=== PATIENT | female | born 1945 | race Caucasian/White ===

== ENCOUNTER 2024-08-06 20:35 | Inpatient (IN) ==
[2024-08-06 21:20] LABS: Basophils # (auto) 0.06 K/uL (0.00-0.20); Basophils % (auto) 0.5 %; Eosinophils # (auto) 0.06 K/uL (0.00-0.50); Eosinophils % (auto) 0.5 %; Hematocrit (blood only) 33.5 % (37.0-47.0); Hemoglobin 10.1 g/dl (12.0-16.0); Immature Granulocytes % (auto) 0.8 %; Lymphocytes # (auto) 0.84 K/uL (1.20-3.40); Lymphocytes % (auto) 6.4 %; Mean Corpuscular Hemoglobin 26.3 pg (25.0-34.0); Mean Corpuscular Hgb Conc 30.1 g/dL (32.0-36.0); Mean Corpuscular Volume 87.2 fL (80.0-100.0); Mean Platelet Volume 10.6 fL (9.4-12.4); Monocytes % (auto) 9.8 %; Neutrophils # (auto) 10.86 K/uL (1.40-6.50); Platelet Count 226 K/uL (130-400); RDW Coefficient of Variation 15.2 % (11.5-14.5); RDW Standard Deviation 48.1 fL (36.4-46.3); Red Blood Count 3.84 M/uL (4.20-5.40); White Blood Count 13.22 K/ul (4.8-10.8)
[2024-08-06 21:33] LABS: Albumin Globulin Ratio 1.3 (0.9-2); Albumin Level 3.5 gm/dl (3.4-5.0); BUN Creatinine Ratio 47.5 (10-20); Bilirubin,Total 0.5 mg/dl (0.2-1.0); Calcium 8.7 mg/dl (8.6-10.3); Creatinine Clr Calc Pharmacy 52.7 ml/min; Globulin 2.8 gm/dl (2.5-4.0); Potassium 4.2 mmol/L (3.5-5.1); Total Protein 6.3 gm/dl (6.0-8.3)
[2024-08-06 21:39] LABS: Troponin I High Sensitivity 12.8 pg/ml (0-14)
--- NOTE | 2024-08-06 22:06 | Emergency Department Note ---
Impression & Plan Syncope, Pleural effusion, Atrial fibrillation, On apixaban therapy, Elevated CPK ED Provider Note NAME: KHANH KIRAN AGE: 79 SEX: F : 1945 ARRIVES VIA: Ambulance INFORMANT: Patient ED PROVIDER(S): Dayday Oneill MD CHIEF COMPLAINT: Syncope, unwitnessed fall PLAN: Disposition: Admit MEDICAL DECISION MAKING: The patient is a pleasant 79-year-old woman with a past medical history of diabetes on insulin, GERD atrial fibrillation on Eliquis, hypertension, hyperlipidemia who presents to the emergency department via EMS for evaluation of unwitnessed fall in the setting of episode of syncope which occurred prior to arrival where the patient last recalls preparing her dinner for the night and then was awakened on the ground where she was sitting leaned against the wall by her friend/neighbor who helps her administer her insulin. She denies any headache or neck/back pain. She reports left hip pain which is not unusual for her related to her arthritis. The patient has had fluctuating/labile blood sugars often becoming hypoglycemic but the patient is unsure as to why as she feels she has been eating and taking her insulin as prescribed. Additionally, family report that the patient has become increasingly edematous in her legs and has had worsening weakness and imbalance at home. Trauma alert was activated due to suspected fall on Eliquis. On my evaluation the patient is no distress, afebrile stable vital signs. Head is atraumatic. There is no midline C-spine tenderness palpation or step-offs. Hips are with full range of motion bilaterally though with discomfort of the left hip with range of motion. Pelvis is stable. She has 2+ bilateral lower extremity pitting edema. There is no significant erythema warmth or tenderness. She has no focal neurologic deficits. EKG demonstrates atrial fibrillation without overt acute ischemia. Chest x-ray demonstrates increased opacification of the right lung berrios which correlates to patient's pleural effusion that was seen on CT imaging. Patient's known old right proximal humerus fracture is seen. WBC 13.2 K with neutrophilia but no left shift, nonspecific. H/H 10.1/50.5 without prior for comparison. Platelets within normal limits. Chemistry without metabolic acidosis. AST is 45, nonspecific with normal ALT and total bilirubin. CPK is 575 in the setting of the patient's unwitnessed fall. High- sensitivity troponin 12.8, within normal limits. BNP is elevated at 251 without prior for comparison. Procalcitonin is not elevated. TSH is 4.6 with free T4 within normal limits. Urinalysis ordered and urine collection pending. CT of the head and C-spine were negative for acute findings. CT of the chest further characterizes bilateral pleural effusions with moderate right-sided and mild left-sided effusions. Additionally, 1.6 x 1.2 cm noncalcified suspected mass in the right lower lobe. Nonspecific mediastinal lymphadenopathy is also present. No acute intra-abdominal findings. Given the patient's syncope due to unclear etiology in the setting of her labile blood sugars at home and her hypervolemia with moderate-sized right-sided pleural effusion patient referred to hospital service for admission and further management. Patient treated with IV APAP and diuresis initiated with IV Lasix. [facility] the patient for [facility]. Further management per admitting team. Triage Nursing notes reviewed and agree them. Prior/external medical records reviewed Vital Signs: reviewed Differential diagnosis: Fracture, dislocation, contusion, intra-abd chest x-ray ominal, pneumothorax, intrathoracic, intracranial, neurologic, compartment syndrome, rhabdomyolysis, as well as other pathologies. ER treatment provided: See below. Diagnostics interpreted by me: ECG: Atrial fibrillation, 84 bpm, no ectopy, no overt ST elevation or depression, QTc 439, QRS 66. Cardiac Monitoring: An order for continuous cardiac monitoring was placed and demonstrated Atrial fibrillation, 84 bpm, no ectopy. Laboratory studies: See below Imaging studies: See below Consultation(s): [facility] will evaluate the patient for admission. HPI: The patient is a pleasant 79-year-old woman with a past medical history of diabetes on insulin, GERD atrial fibrillation on Eliquis, hypertension, hyperlipidemia who presents to the emergency department via EMS for evaluation of unwitnessed fall in the setting of episode of syncope which occurred prior to arrival where the patient last recalls preparing her dinner for the night and then was awakened on the ground where she was sitting leaned against the wall by her friend/neighbor who helps her administer her insulin. She denies any headache or neck/back pain. She reports left hip pain which is not unusual for her related to her arthritis. The patient has had fluctuating/labile blood sugars often becoming hypoglycemic but the patient is unsure as to why as she feels she has been eating and taking her insulin as prescribed. Additionally, family report that the patient has become increasingly edematous in her legs and has had worsening weakness and imbalance at home. ROS: See above HPI for pertinent positives & negatives. A total of 10 systems reviewed and were otherwise negative. VITALS:See Below PHYSICAL EXAMINATION: GENERAL: Awake, alert, uncomfortable-appearing, in no distress, BMI 44.3. HENT: Normocephalic, atraumatic. Oropharynx unremarkable. EYES: Normal conjunctiva. Sclera non-icteric. NECK: Supple. No nuchal rigidity. FROM. No JVD. No midline C-spine tenderness palpation or step-offs. RESPIRATORY: Diminished at bilateral mid to lower lung berrios, right greater than left and otherwise clear to auscultation. CARDIAC: Regular rate, irregular rhythm. Extremities warm and well perfused. Pulses equal. ABDOMEN: Soft, non-distended. No tenderness to palpation. No rebound or guarding. No masses. MUSCULOSKELETAL: Chest examination reveals no tenderness. The back is symmetrical on inspection without obvious abnormality. Hips are with full range of motion bilaterally though with discomfort of the left hip with range of motion. Pelvis is stable. LOWER EXTREMITIES: Calves are equal size bilaterally and non-tender. 2+ bilateral lower extremity pitting edema. There is no significant erythema warmth or tenderness. NEURO: Normal sensorium. No sensory or motor deficits noted. SKIN: No rash or jaundice noted. Dayday Oneill MD Past Med/Surg History Problem List (Updated 08/07/24 @ 04:27 by Dayday Oneill MD) Elevated CPK (Acute) On apixaban therapy (Acute) Atrial fibrillation (Acute) Pleural effusion (Acute) Syncope (Acute) Medical History Hyperlipidemia Hypertension Type 2 diabetes mellitus Social History Smoking Status: Former smoker Tobacco Type: Cigarettes Smoking End Date: 1998; Second Hand Exposure: No; Do You Dip or Chew Tobacco: No; Tobacco Cessation Education Requested by Patient: No Hx Alcohol Use: No Hx Substance Use: No Preferred Language: Comoran Communication Ability: Effective Brick Baker Required: No Beliefs That Will Affect Care: None Current Living Situation: Family Current Living Situation Comment: lives with son Other Information That Helps Us Care for You: No Feels Safe at Home: Yes Safety Concerns: Feels Safe At This Time Assistive Devices: Cane, Glasses and Walker Allergies Allergies Allergy/AdvReac Type Severity Reaction Status Date / Time amoxicillin Allergy Mild RASH,ITCHIN Verified 08/07/24 01:22 G adhesive tape Allergy Unknown rash with Verified 08/07/24 01:35 bandaids & all tape except Paper Home Meds Home Medications Medication Instructions Recorded Confirmed acetaminophen 500 mg capsule 1,000 mg PO DAILY PRN Pain 08/07/24 08/07/24 albuterol sulfate 90 mcg/actuation 2 puff inhalation Q4H PRN SOB 08/07/24 08/07/24 aerosol inhaler apixaban 5 mg tablet (Eliquis) 5 mg PO BID 08/07/24 08/07/24 ascorbic acid (vitamin C) 500 mg 500 mg PO DAILY 08/07/24 08/07/24 tablet (Vitamin C) aspirin 81 mg capsule 81 mg PO DAILY 08/07/24 08/07/24 blood-glucose meter (OneTouch 08/07/24 08/07/24 Ultra2 Meter) cholecalciferol (vitamin D3) 25 25 mcg PO DAILY 08/07/24 08/07/24 mcg (1,000 unit) capsule (Vitamin D3) cyanocobalamin (vitamin B-12) 1,000 mcg PO QAM 08/07/24 08/07/24 1,000 mcg tablet insulin aspar prot-insulin aspart See Rx Instructions .Route .COMPLEX 08/07/24 08/07/24 100 unit/mL (70-30) subcutaneous pen (Novolog Mix 70-30FlexPen U-100) latanoprost 0.005 % eye drops 1 drp ophthalmic (eye) HS 08/07/24 08/07/24 lisinopril 0 mg PO DAILY 08/07/24 08/07/24 lovastatin 10 mg tablet 10 mg PO PM 08/07/24 08/07/24 mecobalamin (vitamin B12) 1,000 1,000 mcg PO DAILY 08/07/24 08/07/24 mcg chewable tablet (B12 Active) metoprolol succinate 100 mg 100 mg PO QAM 08/07/24 08/07/24 tablet,extended release 24 hr omeprazole 20 mg capsule,delayed 20 mg PO QAM 08/07/24 08/07/24 release Results & Data (ED) Vital Signs Vital Signs - 24 hr 08/06/24 20:41 08/06/24 21:10 08/06/24 21:10 Temperature Pulse Rate 81 74 Pulse Rate [Left Brachial] 74 Pulse Rhythm Regular Pulse Rhythm [Left Brachial] Regular Pulse Strength Normal Pulse Strength [Left Brachial] Normal Respiratory Rate 18 18 Respiratory Effort / Characteristics Non-Labored Non-Labored Respiratory Depth Normal Normal Respiratory Pattern Regular Blood Pressure 139/80 Blood Pressure [Left Arm] 139/80 Blood Pressure Mean 99 Blood Pressure Mean [Left Arm] 99 Blood Pressure Position Lying Blood Pressure Position [Left Arm] Lying Pulse Oximetry 96 96 Oxygen Delivery Method Room Air Room Air Sepsis Recent Fever Within 48 Hours No Sepsis New/Unexplained Change in Mental Status No Sepsis Action Taken by Nursing No Action Required 08/06/24 21:10 08/06/24 21:21 08/06/24 21:22 Temperature 36.6 C Pulse Rate 74 Pulse Rate [Left Brachial] Pulse Rhythm Pulse Rhythm [Left Brachial] Pulse Strength Pulse Strength [Left Brachial] Respiratory Rate 18 Respiratory Effort / Characteristics Respiratory Depth Respiratory Pattern Blood Pressure 139/80 Blood Pressure [Left Arm] Blood Pressure Mean Blood Pressure Mean [Left Arm] Blood Pressure Position Blood Pressure Position [Left Arm] Pulse Oximetry 96 96 Oxygen Delivery Method Room Air Room Air Sepsis Recent Fever Within 48 Hours Sepsis New/Unexplained Change in Mental Status Sepsis Action Taken by Nursing 08/06/24 22:00 08/07/24 00:06 08/07/24 00:52 Temperature Pulse Rate 94 H Pulse Rate [Left Brachial] 84 89 Pulse Rhythm Pulse Rhythm [Left Brachial] Regular Pulse Strength Pulse Strength [Left Brachial] Normal Normal Respiratory Rate 18 18 Respiratory Effort / Characteristics Non-Labored Non-Labored Spontaneous Respiratory Depth Normal Normal Respiratory Pattern Regular Regular Blood Pressure Blood Pressure [Left Arm] 113/73 117/51 L Blood Pressure Mean Blood Pressure Mean [Left Arm] 86 73 Blood Pressure Position Blood Pressure Position [Left Arm] Lying Pulse Oximetry 93 98 Oxygen Delivery Method Room Air Room Air Sepsis Recent Fever Within 48 Hours Sepsis New/Unexplained Change in Mental Status Sepsis Action Taken by Nursing Laboratory Data Attestation: I reviewed the patient's lab results. 08/07/24 02:31 08/07/24 02:31 Lab Results 08/06/24 08/06/24 08/06/24 Range/Units 20:43 20:46 23:03 WBC 13.22 H (4.8-10.8) K/ul RBC 3.84 L (4.20-5.40) M/uL Hgb 10.1 L (12.0-16.0) g/dl Hct 33.5 L (37.0-47.0) % MCV 87.2 (80.0-100.0) fL MCH 26.3 (25.0-34.0) pg MCHC 30.1 L (32.0-36.0) g/dL RDW Std Deviation 48.1 H (36.4-46.3) fL RDW Coeff of Alvaro 15.2 H (11.5-14.5) % Plt Count 226 (130-400) K/uL MPV 10.6 (9.4-12.4) fL Immature Gran % (Auto) 0.8 % Neut % (Auto) 82.0 % Lymph % (Auto) 6.4 % [place] % (Auto) 9.8 % Eos % (Auto) 0.5 % Baso % (Auto) 0.5 % Neut # (Auto) 10.86 H (1.40-6.50) K/uL Lymph # (Auto) 0.84 L (1.20-3.40) K/uL [place] # (Auto) 1.30 H (0.11-0.59) K/uL Eos # (Auto) 0.06 (0.00-0.50) K/uL Baso # (Auto) 0.06 (0.00-0.20) K/uL Immature Gran # (Auto) 0.10 (0.01-0.20) K/uL PT 16.9 H (9.0-12.0) Seconds INR 1.6 H (0.9-1.1) Sodium 136 (136-145) mmol/L Potassium 4.2 (3.5-5.1) mmol/L Chloride 105 (98-107) mmol/L Carbon Dioxide 25 (21-32) mmol/L Anion Gap 6 (3-11) BUN 48 H (6-23) mg/dl Creatinine 1.01 (0.6-1.2) mg/dl Est Cr Clr Drug Dosing 52.7 ml/min eGFR 56.63 BUN/Creatinine Ratio 47.5 H (10-20) Glucose 132 H (70-99(Fasting)) mg/dl POC Glucose 141 H (70-99) mg/dl Calcium 8.7 (8.6-10.3) mg/dl Phosphorus 4.5 (2.5-4.9) mg/dl Magnesium 2.2 (1.7-2.4) mg/dl Total Bilirubin 0.5 (0.2-1.0) mg/dl AST 45 H (13-39) U/L ALT 24 (7-52) U/L Alkaline Phosphatase 151 H (34-104) U/L Total Creatine Kinase 575 H (26-192) U/L Troponin I High Sens 12.8 (0-14) pg/ml B-Natriuretic Peptide 251 H (0-100) pg/ml Total Protein 6.3 (6.0-8.3) gm/dl Albumin 3.5 (3.4-5.0) gm/dl Globulin 2.8 (2.5-4.0) gm/dl Albumin/Globulin Ratio 1.3 (0.9-2) Procalcitonin 0.06 (0-0.5) ng/ml TSH 4.617 H (0.300-4.500) uIu/ml Free T4 1.21 (0.61-1.60) ng/dl Urine Color Urine Appearance (Clear) Urine pH (4.5-7.5) Ur Specific [place] (1.000-1.030) Urine Protein (Negative) Urine Glucose (UA) (Negative) Urine Ketones (Negative) Urine Blood (Negative) Urine Nitrite (Negative) Urine Bilirubin (Negative) Urine Urobilinogen (Negative) Ur Leukocyte Esterase (Negative) Urine WBC (Auto) (0-5) /hpf Urine RBC (Auto) (0-2) /hpf U Hyaline Cast (Auto) (0-2) /lpf U Epithel Cells (Auto) (0-2) /hpf Urine Bacteria (Auto) (None Seen) 08/07/24 Range/Units 00:05 WBC (4.8-10.8) K/ul RBC (4.20-5.40) M/uL Hgb (12.0-16.0) g/dl Hct (37.0-47.0) % MCV (80.0-100.0) fL MCH (25.0-34.0) pg MCHC (32.0-36.0) g/dL RDW Std Deviation (36.4-46.3) fL RDW Coeff of Alvaro (11.5-14.5) % Plt Count (130-400) K/uL MPV (9.4-12.4) fL Immature Gran % (Auto) % Neut % (Auto) % Lymph % (Auto) % [place] % (Auto) % Eos % (Auto) % Baso % (Auto) % Neut # (Auto) (1.40-6.50) K/uL Lymph # (Auto) (1.20-3.40) K/uL [place] # (Auto) (0.11-0.59) K/uL Eos # (Auto) (0.00-0.50) K/uL Baso # (Auto) (0.00-0.20) K/uL Immature Gran # (Auto) (0.01-0.20) K/uL PT (9.0-12.0) Seconds INR (0.9-1.1) Sodium (136-145) mmol/L Potassium (3.5-5.1) mmol/L Chloride (98-107) mmol/L Carbon Dioxide (21-32) mmol/L Anion Gap (3-11) BUN (6-23) mg/dl Creatinine (0.6-1.2) mg/dl Est Cr Clr Drug Dosing ml/min eGFR BUN/Creatinine Ratio (10-20) Glucose (70-99(Fasting)) mg/dl POC Glucose (70-99) mg/dl Calcium (8.6-10.3) mg/dl Phosphorus (2.5-4.9) mg/dl Magnesium (1.7-2.4) mg/dl Total Bilirubin (0.2-1.0) mg/dl AST (13-39) U/L ALT (7-52) U/L Alkaline Phosphatase (34-104) U/L Total Creatine Kinase (26-192) U/L Troponin I High Sens (0-14) pg/ml B-Natriuretic Peptide (0-100) pg/ml Total Protein (6.0-8.3) gm/dl Albumin (3.4-5.0) gm/dl Globulin (2.5-4.0) gm/dl Albumin/Globulin Ratio (0.9-2) Procalcitonin (0-0.5) ng/ml TSH (0.300-4.500) uIu/ml Free T4 (0.61-1.60) ng/dl Urine Color Yellow Urine Appearance Clear (Clear) Urine pH 5.0 (4.5-7.5) Ur Specific [place] 1.038 H (1.000-1.030) Urine Protein Trace H (Negative) Urine Glucose (UA) Negative (Negative) Urine Ketones Trace H (Negative) Urine Blood Negative (Negative) Urine Nitrite Positive A (Negative) Urine Bilirubin Negative (Negative) Urine Urobilinogen Negative (Negative) Ur Leukocyte Esterase Trace H (Negative) Urine WBC (Auto) 0-5 (0-5) /hpf Urine RBC (Auto) 0-2 (0-2) /hpf U Hyaline Cast (Auto) 0-2 (0-2) /lpf U Epithel Cells (Auto) 0-2 (0-2) /hpf Urine Bacteria (Auto) 3+ H (None Seen) Administered Medications Acetaminophen (Acetaminophen 325 Mg Tab) 650 mg PO QID PRN PRN Reason: pain/fever Stop: 09/06/24 01:41 Last Admin: 08/07/24 04:01 Dose: 650 mg Documented By: KASEY Pantoprazole Sodium 40 mg/ (Dextrose) 100 mls @ 20 mls/hr IV Q5H COOKIE Stop: 09/06/24 03:59 Last Admin: 08/07/24 04:03 Dose: 8 mg/hr, 20 mls/hr Documented By: KASEY Discontinued Medications Albuterol (Albut/Ipratrop 3mg/0.5mg Neb 3 Ml Vial) 3 ml NEB NOW STA; Protocol Stop: 08/07/24 01:47 Last Admin: 08/07/24 02:04 Dose: 3 ml Documented By: DOUG Furosemide (Furosemide Inj 20 Mg/2 Ml Vial) 20 mg IV ONE ONE Stop: 08/07/24 00:34 Last Admin: 08/07/24 00:42 Dose: 20 mg Documented By: DOUG Acetaminophen (Ofirmev) 1,000 mg in 100 mls @ 400 mls/hr IV NOW STA Stop: 08/06/24 22:16 Last Infusion: 08/06/24 22:35 Dose: Infused Documented By: Admin: 08/06/24 22:14 Dose: 400 mls/hr Documented By: TARUN Pantoprazole Sodium 80 mg/ (Dextrose) 120 mls @ 480 mls/hr IV ONE STA Stop: 08/07/24 01:46 Last Infusion: 08/07/24 02:53 Dose: Infused Documented By: Admin: 08/07/24 01:44 Dose: 480 mls/hr Documented By: DOUG Ceftriaxone Sodium (Rocephin) 2,000 mg in 50 mls @ 100 mls/hr IV ONE STA Stop: 08/07/24 02:24 Last Infusion: 08/07/24 02:53 Dose: Infused Documented By: Admin: 08/07/24 02:05 Dose: 100 mls/hr Documented By: DOUG Insulin Aspart (Insulin Aspart Per Unit Charge) 0 units SC ONE STA Stop: 08/07/24 01:44 Last Admin: 08/07/24 03:29 Dose: Not Given Documented By: [facility] Ioversol (Optiray 320 100ml) 93 ml IV ONCE ONE Stop: 08/06/24 22:34 Last Admin: 08/06/24 22:29 Dose: 93 ml Documented By: PIA Imaging Data Radiologist's Impression: Abdomen/Pelvis CT 08/06/24 22:02 Exam(s): CT ABDOMEN + PELVIS With Contrast IV Amt: 93 ml EXAM: CT Abdomen and Pelvis With Intravenous Contrast CLINICAL HISTORY: Reason for exam: trauma, syncope, pain, fall. TECHNIQUE: Axial computed tomography images of the abdomen and pelvis with intravenous contrast. CTDI is 36.18 mGy and DLP is 3210.82 mGy-cm. Automated exposure control was utilized for the study. A dose lowering technique was utilized adhering to the principles of ALARA. CONTRAST: Patient received 93 ml of IV contrast COMPARISON: No relevant prior studies available. FINDINGS: Lung bases: Unremarkable. No mass. No consolidation. Pleural space: Moderate RIGHT and small LEFT pleural effusions. ABDOMEN: Liver: Unremarkable. No mass. Gallbladder and bile ducts: Unremarkable. No calcified stones. No ductal dilation. Pancreas: Unremarkable. No mass. No ductal dilation. Spleen: Unremarkable. No splenomegaly. Adrenals: Unremarkable. No mass. Kidneys and ureters: Unremarkable. No solid mass. No hydronephrosis. Stomach and bowel: Diverticulosis, without acute diverticulitis. No small bowel obstruction. No free intraperitoneal air. PELVIS: Appendix: No findings to suggest acute appendicitis. Bladder: Unremarkable. No mass. Reproductive: Hysterectomy. ABDOMEN and PELVIS: Intraperitoneal space: Unremarkable. No free air. No significant fluid collection. Bones/joints: Degenerative changes of the spine. No acute fracture. No dislocation. Soft tissues: Anasarca. Vasculature: Atherosclerotic changes of the aorta. No abdominal aortic aneurysm. Lymph nodes: Unremarkable. No enlarged lymph nodes. IMPRESSION: 1. Moderate RIGHT and small LEFT pleural effusions. 2. Hysterectomy. 3. Diverticulosis, without acute diverticulitis. No small bowel obstruction. No free intraperitoneal air. Electronically signed by: Oracio Kent MD 08/06/24 23:[address] 08/06/24 22:02 Exam(s): CT C SPINE EXAM: CT Cervical Spine Without Intravenous Contrast CLINICAL HISTORY: Reason for exam: trauma, syncope, pain, fall. TECHNIQUE: Axial computed tomography images of the cervical spine without intravenous contrast. CTDI is 36.18 mGy and DLP is 3210.82 mGy-cm. Automated exposure control was utilized for the study. A dose lowering technique was utilized adhering to the principles of ALARA. COMPARISON: No relevant prior studies available. FINDINGS: The vertebral body heights are maintained. The craniocervical junction is intact. The atlanto-dens interval is maintained. The dens is intact. There is no spondylolisthesis. Multilevel cervical spondylosis and degenerative disc disease. Straightening of the cervical lordosis. Small RIGHT pleural effusion. IMPRESSION: No acute fracture or subluxation of the cervical spine. Electronically signed by: Oracio Kent MD 08/06/24 23:[address] 08/06/24 22:02 Exam(s): CT CHEST With Contrast IV Amt: 93 ml EXAM: CT Chest With Intravenous Contrast CLINICAL HISTORY: trauma, syncope, pain, fall. TECHNIQUE: Axial computed tomography images of the chest with intravenous contrast. CTDI is 36.18 mGy and DLP is 3210.82 mGy-cm. Automated exposure control was utilized for the study. A dose lowering technique was utilized adhering to the principles of ALARA. CONTRAST: Patient received 93 ml of IV contrast COMPARISON: No relevant prior studies available. FINDINGS: Lungs: Mild bilateral dependent and compressive atelectasis. 1.6 x 1.2 cm noncalcified suspected mass in the right lower lobe. Pleural space: Right greater than left pleural effusions. No pneumothorax. Heart: No cardiomegaly. Trace pericardial effusion. Coronary artery calcifications. Bones/joints: Periosteal reaction and deformity of the partially visualized humeral head and scapula suggesting that subacute partially healed fracture. No acute fracture. Degenerative changes of the thoracic spine. 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 Soft tissues: Diffuse subcutaneous infiltration. Small hiatal hernia. Vasculature: Unremarkable. No thoracic aortic aneurysm. Lymph nodes: Scattered mediastinal lymph nodes, largest near the P1 and a 1.1 x 2 cm. IMPRESSION: No acute fracture. Periosteal reaction and deformity of the partially visualized humeral head and scapula suggesting that subacute partially healed fracture. Bilateral pleural effusions with associated minimal atelectasis. 1.6 x 1.2 cm noncalcified suspected mass in the right lower lobe. Nonspecific mediastinal lymph nodes. Senescent changes. Electronically signed by: Connor Ro M.D. 08/07/24 00:[address] 08/06/24 22:02 Exam(s): CT HEAD Without Contrast EXAM: CT Head Without Intravenous Contrast CLINICAL HISTORY: Reason for exam: trauma, syncope, pain, fall. TECHNIQUE: Axial computed tomography images of the head/brain without intravenous contrast. CTDI is 36.18 mGy and DLP is 3210.82 mGy-cm. Automated exposure control was utilized for the study. A dose lowering technique was utilized adhering to the principles of ALARA. COMPARISON: No relevant prior studies available. FINDINGS: No acute intracranial hemorrhage. No midline shift or mass effect. The territorial bustamante-white matter differentiation is maintained throughout. Age-related cerebral volume loss. Periventricular and subcortical white matter hypoattenuation, consistent with chronic microangiopathy. The visualized orbits appear grossly unremarkable. The calvarium is intact. The visualized paranasal sinuses and mastoid air cells are grossly clear. IMPRESSION: No acute intracranial hemorrhage, midline shift, or mass effect. Electronically signed by: Oracio Kent MD 08/06/24 23:42 PM Discharge Plan Visit Data Chief Complaint: Trauma Stated Complaint: Hypoglycemia, AMS ED Provider: Dayday Oneill Discharge Problem: Syncope, Pleural effusion, Atrial fibrillation, On apixaban therapy, Elevated CPK Patient Disposition: Admitted As Inpatient Discharge Instructions Interventions: ED Discharge Assessment Last Done: 08/07/24 02:25 Discharge Problem: Syncope Qualifiers: Syncope type: unspecified Qualified Code(s): R55 - Syncope and collapse Atrial fibrillation Qualifiers: Atrial fibrillation type: unspecified Qualified Code(s): I48.91 - Unspecified atrial fibrillation
[2024-08-06] MEDS: ACETAMINOPHEN 1,000 MG/100 ML VIAL IV STA (22:14)
[2024-08-06] MEDS: OPTIRAY 320 100ml IV ONE (22:29)
[2024-08-06 22:54] LABS: Magnesium 2.2 mg/dl (1.7-2.4); Phosphorus 4.5 mg/dl (2.5-4.9)
[2024-08-06 23:10] LABS: Thyroid Stimulating Hormone 4.617 uIu/ml (0.300-4.500)
--- NOTE | 2024-08-06 23:43 | CT Scan Report ---
Exam(s): CT HEAD Without Contrast EXAM: CT Head Without Intravenous Contrast CLINICAL HISTORY: Reason for exam: trauma, syncope, pain, fall. TECHNIQUE: Axial computed tomography images of the head/brain without intravenous contrast. CTDI is 36.18 mGy and DLP is 3210.82 mGy-cm. Automated exposure control was utilized for the study. A dose lowering technique was utilized adhering to the principles of ALARA. COMPARISON: No relevant prior studies available. FINDINGS: No acute intracranial hemorrhage. No midline shift or mass effect. The territorial bustamante-white matter differentiation is maintained throughout. Age-related cerebral volume loss. Periventricular and subcortical white matter hypoattenuation, consistent with chronic microangiopathy. The visualized orbits appear grossly unremarkable. The calvarium is intact. The visualized paranasal sinuses and mastoid air cells are grossly clear. IMPRESSION: No acute intracranial hemorrhage, midline shift, or mass effect. Electronically signed by: Oracio Kent MD 08/06/24 23:42 PM
--- NOTE | 2024-08-06 23:45 | CT Scan Report ---
Exam(s): CT C SPINE EXAM: CT Cervical Spine Without Intravenous Contrast CLINICAL HISTORY: Reason for exam: trauma, syncope, pain, fall. TECHNIQUE: Axial computed tomography images of the cervical spine without intravenous contrast. CTDI is 36.18 mGy and DLP is 3210.82 mGy-cm. Automated exposure control was utilized for the study. A dose lowering technique was utilized adhering to the principles of ALARA. COMPARISON: No relevant prior studies available. FINDINGS: The vertebral body heights are maintained. The craniocervical junction is intact. The atlanto-dens interval is maintained. The dens is intact. There is no spondylolisthesis. Multilevel cervical spondylosis and degenerative disc disease. Straightening of the cervical lordosis. Small RIGHT pleural effusion. IMPRESSION: No acute fracture or subluxation of the cervical spine. Electronically signed by: Oracio Kent MD 08/06/24 23:44 PM
--- NOTE | 2024-08-06 23:47 | CT Scan Report ---
Exam(s): CT ABDOMEN + PELVIS With Contrast IV Amt: 93 ml EXAM: CT Abdomen and Pelvis With Intravenous Contrast CLINICAL HISTORY: Reason for exam: trauma, syncope, pain, fall. TECHNIQUE: Axial computed tomography images of the abdomen and pelvis with intravenous contrast. CTDI is 36.18 mGy and DLP is 3210.82 mGy-cm. Automated exposure control was utilized for the study. A dose lowering technique was utilized adhering to the principles of ALARA. CONTRAST: Patient received 93 ml of IV contrast COMPARISON: No relevant prior studies available. FINDINGS: Lung bases: Unremarkable. No mass. No consolidation. Pleural space: Moderate RIGHT and small LEFT pleural effusions. ABDOMEN: Liver: Unremarkable. No mass. Gallbladder and bile ducts: Unremarkable. No calcified stones. No ductal dilation. Pancreas: Unremarkable. No mass. No ductal dilation. Spleen: Unremarkable. No splenomegaly. Adrenals: Unremarkable. No mass. Kidneys and ureters: Unremarkable. No solid mass. No hydronephrosis. Stomach and bowel: Diverticulosis, without acute diverticulitis. No small bowel obstruction. No free intraperitoneal air. PELVIS: Appendix: No findings to suggest acute appendicitis. Bladder: Unremarkable. No mass. Reproductive: Hysterectomy. ABDOMEN and PELVIS: Intraperitoneal space: Unremarkable. No free air. No significant fluid collection. Bones/joints: Degenerative changes of the spine. No acute fracture. No dislocation. Soft tissues: Anasarca. Vasculature: Atherosclerotic changes of the aorta. No abdominal aortic aneurysm. Lymph nodes: Unremarkable. No enlarged lymph nodes. IMPRESSION: 1. Moderate RIGHT and small LEFT pleural effusions. 2. Hysterectomy. 3. Diverticulosis, without acute diverticulitis. No small bowel obstruction. No free intraperitoneal air. Electronically signed by: Oracio Kent MD 08/06/24 23:46 PM
[2024-08-06 23:49] LABS: T4 Free Thyroxine 1.21 ng/dl (0.61-1.60)
[2024-08-06 23:49] LABS: INR 1.6 (0.9-1.1); Prothrombin Time 16.9 Seconds (9.0-12.0)
--- NOTE | 2024-08-07 00:27 | CT Scan Report ---
Exam(s): CT CHEST With Contrast IV Amt: 93 ml EXAM: CT Chest With Intravenous Contrast CLINICAL HISTORY: trauma, syncope, pain, fall. TECHNIQUE: Axial computed tomography images of the chest with intravenous contrast. CTDI is 36.18 mGy and DLP is 3210.82 mGy-cm. Automated exposure control was utilized for the study. A dose lowering technique was utilized adhering to the principles of ALARA. CONTRAST: Patient received 93 ml of IV contrast COMPARISON: No relevant prior studies available. FINDINGS: Lungs: Mild bilateral dependent and compressive atelectasis. 1.6 x 1.2 cm noncalcified suspected mass in the right lower lobe. Pleural space: Right greater than left pleural effusions. No pneumothorax. Heart: No cardiomegaly. Trace pericardial effusion. Coronary artery calcifications. Bones/joints: Periosteal reaction and deformity of the partially visualized humeral head and scapula suggesting that subacute partially healed fracture. No acute fracture. Degenerative changes of the thoracic spine. 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 Soft tissues: Diffuse subcutaneous infiltration. Small hiatal hernia. Vasculature: Unremarkable. No thoracic aortic aneurysm. Lymph nodes: Scattered mediastinal lymph nodes, largest near the P1 and a 1.1 x 2 cm. IMPRESSION: No acute fracture. Periosteal reaction and deformity of the partially visualized humeral head and scapula suggesting that subacute partially healed fracture. Bilateral pleural effusions with associated minimal atelectasis. 1.6 x 1.2 cm noncalcified suspected mass in the right lower lobe. Nonspecific mediastinal lymph nodes. Senescent changes. Electronically signed by: Connor Ro M.D. 08/07/24 00:26 AM
[2024-08-07] MEDS: FUROSEMIDE INJ 20 MG/2 ML VIAL IV ONE (00:42)
[2024-08-07 00:52] LABS: Appearance Urine Clear (Clear); Bacteria Urine Automated 3+ (None Seen); Bilirubin Urine Negative (Negative); Blood Urine Negative (Negative); Cast Urine Automated 0-2 /lpf (0-2); Color Urine Yellow; Epithelial Cell Urine Auto 0-2 /hpf (0-2); Glucose Urine UA Negative (Negative); Ketones Urine Trace (Negative); Leukocyte Esterase Urine Trace (Negative); Nitrite Urine Positive (Negative); Protein Urine Trace (Negative); RBC Urine Automated 0-2 /hpf (0-2); Specific Gravity Urine 1.038 (1.000-1.030); Urobilinogen Urine Negative (Negative); WBC Urine Automated 0-5 /hpf (0-5)
--- NOTE | 2024-08-07 01:35 | History & Physical Report ---
Date of Service August 07, 2024 Assessment & Plan (1) CHF (congestive heart failure): Plan: Subacute CHF hx A-fib on Eliquis Anemia from slow UGIB possibly contributory to CHF. heme positive melanotic stool documented at the ER, history GERD, NOAC rx hypertension, BP on the lower side Mild MR Mild rhabdomyolysis hyperlipidemia on statin Rx GERD Syncope secondary to recurrent hypoglycemia, DM2 insulin requiring, well- controlled as of recent hemoglobin A1c of 6.28 May 2024 Complicated UTI, history stress incontinence as per records, no sepsis for now Recent traumatic right shoulder fracture, nonoperative management as per [place] orthopedic surgeon Incidental finding of right lower lobe lung mass on CT past tobacco abuse Admit to PCU Diuretic Rx Strict I/Os, daily weights, CHF education TTE, Cardiology consult Re: CHF IV PPI for UGIB Appropriate to hold home aspirin and Eliquis for now Anemia workup Follow H&H, transfuse PRBC if hemoglobin less than 7 and or for symptomatic anemia GI consult re: UGIB N.p.o. in anticipation of endoscopy Follow CPK Hold statin until CPK levels within normal limits Urine CS, ceftriaxone Hold basal insulin for now, ISS BG goal 1 10-1 40, update hemoglobin A1c Patient may need to be discharged on decrease basal insulin dose given hypoglycemic episodes depending on updated hemoglobin A1c result. Outpatient Pulmonology eval for lung mass DVT prophylaxis. SCDs re: GI bleed Full code Patient daughter requesting updates providers. Ms. Cindy Liu, contact #[phone]. Text document was generated using [employer] voice recognition software. It may contain grammatical or spelling errors. Kindly contact undersigned for clarification of any documentation item in question. History of Present Illness Chief Complaint: Syncope, fall, low sugar Primary Care Provider: Emy Hawk DO History obtained from patient, family, and records. Medical history significant for A-fib on Eliquis, mild MR, hypertension, hyperlipidemia, GERD, DM2 insulin requiring, migraine, stress incontinence as per records, neuropathy, past tobacco abuse. Recent confinement [facility] June 15 to 2023 for traumatic right humeral fracture and left fractured thumb secondary to fall. No operative intervention for fractures. Patient also found to have A-fib on the monitor on morning of admission as per documentation. TTE showed mild MR, EF of 55 to 60%. Patient discharged on Eliquis. Patient with intermittent hypoglycemic episodes about twice a week following discharge from hospital. Blood sugar 40s No change from usual regimen or food consumption. Patient discharged home after evaluation at [facility] ER. Some subsequent episodes of hypoglycemia associated with syncope. No witnessed seizures as per family. 2 weeks ago, patient noted shortness of breath somewhat worse on exertion. No unusual cough symptoms. No improvement with home inhaler. Denies chest pain. Increasing bilateral leg swelling which may have started following discharge from the hospital 2 months ago. Shoulder fracture pain controlled at home. Patient denies OTC NSAID intake. Patient waiting to hear from family doctor. Patient found unconscious on the floor at home. EMS called to patient's home. Blood sugar noted to be 40s. Patient woke up in the ambulance. Denies headache, chest pain, abdominal pain. Not aware of black or bloody stools or hematuria. Just remembers feeling weak. IV Lasix administered at the ER. 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 Allergies Allergy/AdvReac Type Severity Reaction Status Date / Time amoxicillin Allergy Mild RASH,ITCHIN Verified 08/07/24 01:22 G adhesive tape Allergy Unknown rash with Verified 08/07/24 01:35 bandaids & all tape except Paper Home Medications Medication Instructions Recorded Confirmed Type acetaminophen 500 mg capsule 1,000 mg PO DAILY PRN Pain 08/07/24 08/07/24 History albuterol sulfate 90 mcg/actuation 2 puff inhalation Q4H PRN SOB 08/07/24 08/07/24 History aerosol inhaler apixaban 5 mg tablet (Eliquis) 5 mg PO BID 08/07/24 08/07/24 History ascorbic acid (vitamin C) 500 mg 500 mg PO DAILY 08/07/24 08/07/24 History tablet (Vitamin C) aspirin 81 mg capsule 81 mg PO DAILY 08/07/24 08/07/24 History blood-glucose meter (OneTouch 08/07/24 08/07/24 History Ultra2 Meter) cholecalciferol (vitamin D3) 25 25 mcg PO DAILY 08/07/24 08/07/24 History mcg (1,000 unit) capsule (Vitamin D3) cyanocobalamin (vitamin B-12) 1,000 mcg PO QAM 08/07/24 08/07/24 History 1,000 mcg tablet insulin aspar prot-insulin aspart See Rx Instructions .Route .COMPLEX 08/07/24 08/07/24 History 100 unit/mL (70-30) subcutaneous pen (Novolog Mix 70-30FlexPen U-100) latanoprost 0.005 % eye drops 1 drp ophthalmic (eye) HS 08/07/24 08/07/24 History lisinopril 0 mg PO DAILY 08/07/24 08/07/24 History lovastatin 10 mg tablet 10 mg PO PM 08/07/24 08/07/24 History mecobalamin (vitamin B12) 1,000 1,000 mcg PO DAILY 08/07/24 08/07/24 History mcg chewable tablet (B12 Active) metoprolol succinate 100 mg 100 mg PO QAM 08/07/24 08/07/24 History tablet,extended release 24 hr omeprazole 20 mg capsule,delayed 20 mg PO QAM 08/07/24 08/07/24 History release Past Med/Surg History Problem List (Updated 08/07/24 @ 10:17 by Sahil Murdock Jr, MD) Anemia Syncope and collapse CHF (congestive heart failure) Elevated CPK (Acute) On apixaban therapy (Acute) Atrial fibrillation (Acute) Pleural effusion (Acute) Syncope (Acute) Medical History Hyperlipidemia Hypertension Type 2 diabetes mellitus Social History Smoking Status: Former smoker Tobacco Type: Cigarettes Smoking End Date: 1998; Second Hand Exposure: No; Do You Dip or Chew Tobacco: No; Tobacco Cessation Education Requested by Patient: No Hx Alcohol Use: No Hx Substance Use: No Preferred Language: [place] Communication Ability: Effective 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: No Beliefs That Will Affect Care: None Current Living Situation: Family Current Living Situation Comment: lives with son Other Information That Helps Us Care for You: No Feels Safe at Home: Yes Safety Concerns: Feels Safe At This Time Assistive Devices: Cane, Glasses and Walker Review of Systems Review of Systems: As per HPI, all other systems reviewed and negative Physical Exam Physical Exam: GENERAL: Slightly uncomfortable, morbidly obese, no respiratory distress SKIN: Pallor, warm HEENT: Pale palpebral conjunctivae, no ptosis, dry buccal mucosa NECK : Supple, short neck, no tenderness CHEST : Decreased breath sounds,, bibasilar rales, no tenderness HEART : Irregular, no obvious murmurs ABDOMEN: Some distention, nontender RECTAL : Intact sphincter, melanotic stool (FOBT positive) EXTREMITIES : Bilateral LE swelling without tenderness, right shoulder tenderness, no other conspicuous deformities noted NEUROLOGIC : Coherent, no facial asymmetry, no other gross focality Results & Data Results & Data Vital Signs (Past 12 Hours) Vital Signs Temp Pulse Pulse Resp BP BP Pulse Ox 08/07/24 00:52 94 H 08/07/24 00:06 89 18 117/51 L 98 08/06/24 22:00 84 18 113/73 93 08/06/24 21:22 08/06/24 21:21 96 08/06/24 21:10 36.6 C 74 18 139/80 96 08/06/24 21:10 74 18 139/80 96 08/06/24 21:10 74 18 139/80 96 08/06/24 20:41 81 O2 Del Method 08/07/24 00:52 08/07/24 00:06 Room Air 08/06/24 22:00 Room Air 08/06/24 21:22 Room Air 08/06/24 21:21 Room Air 08/06/24 21:10 08/06/24 21:10 Room Air 08/06/24 21:10 Room Air 08/06/24 20:41 Laboratory Results Laboratory Results WBC 13.22 K/ul (4.8-10.8) H 08/06/24 20:46 RBC 3.84 M/uL (4.20-5.40) L 08/06/24 20:46 Hgb 10.1 g/dl (12.0-16.0) L 08/06/24 20:46 Hct 33.5 % (37.0-47.0) L 08/06/24 20:46 MCV 87.2 fL (80.0-100.0) 08/06/24 20:46 MCH 26.3 pg (25.0-34.0) 08/06/24 20:46 MCHC 30.1 g/dL (32.0-36.0) L 08/06/24 20:46 RDW Std Deviation 48.1 fL (36.4-46.3) H 08/06/24 20:46 RDW Coeff of Alvaro 15.2 % (11.5-14.5) H 08/06/24 20:46 Plt Count 226 K/uL (130-400) 08/06/24 20:46 MPV 10.6 fL (9.4-12.4) 08/06/24 20:46 Immature Gran % (Auto) 0.8 % 08/06/24 20:46 Neut % (Auto) 82.0 % 08/06/24 20:46 Lymph % (Auto) 6.4 % 08/06/24 20:46 Hayes % (Auto) 9.8 % 08/06/24 20:46 Eos % (Auto) 0.5 % 08/06/24 20:46 Baso % (Auto) 0.5 % 08/06/24 20:46 Neut # (Auto) 10.86 K/uL (1.40-6.50) H 08/06/24 20:46 Lymph # (Auto) 0.84 K/uL (1.20-3.40) L 08/06/24 20:46 Hayes # (Auto) 1.30 K/uL (0.11-0.59) H 08/06/24 20:46 Eos # (Auto) 0.06 K/uL (0.00-0.50) 08/06/24 20:46 Baso # (Auto) 0.06 K/uL (0.00-0.20) 08/06/24 20:46 Immature Gran # (Auto) 0.10 K/uL (0.01-0.20) 08/06/24 20:46 PT 16.9 Seconds (9.0-12.0) H 08/06/24 23:03 INR 1.6 (0.9-1.1) H 08/06/24 23:03 Sodium 136 mmol/L (136-145) 08/06/24 20:46 Potassium 4.2 mmol/L (3.5-5.1) 08/06/24 20:46 Chloride 105 mmol/L (98-107) 08/06/24 20:46 Carbon Dioxide 25 mmol/L (21-32) 08/06/24 20:46 Anion Gap 6 (3-11) 08/06/24 20:46 BUN 48 mg/dl (6-23) H 08/06/24 20:46 Creatinine 1.01 mg/dl (0.6-1.2) 08/06/24 20:46 Est Cr Clr Drug Dosing 52.7 ml/min 08/06/24 20:46 eGFR 56.63 08/06/24 20:46 BUN/Creatinine Ratio 47.5 (10-20) H 08/06/24 20:46 Glucose 132 mg/dl (70-99(Fasting)) H 08/06/24 20:46 POC Glucose 141 mg/dl (70-99) H 08/06/24 20:43 Calcium 8.7 mg/dl (8.6-10.3) 08/06/24 20:46 Phosphorus 4.5 mg/dl (2.5-4.9) 08/06/24 20:46 Magnesium 2.2 mg/dl (1.7-2.4) 08/06/24 20:46 Total Bilirubin 0.5 mg/dl (0.2-1.0) 08/06/24 20:46 AST 45 U/L (13-39) H 08/06/24 20:46 ALT 24 U/L (7-52) 08/06/24 20:46 Alkaline Phosphatase 151 U/L (34-104) H 08/06/24 20:46 Total Creatine Kinase 575 U/L (26-192) H 08/06/24 20:46 Troponin I High Sens 12.8 pg/ml (0-14) 08/06/24 20:46 B-Natriuretic Peptide 251 pg/ml (0-100) H 08/06/24 20:46 Total Protein 6.3 gm/dl (6.0-8.3) 08/06/24 20:46 Albumin 3.5 gm/dl (3.4-5.0) 08/06/24 20:46 Globulin 2.8 gm/dl (2.5-4.0) 08/06/24 20:46 Albumin/Globulin Ratio 1.3 (0.9-2) 08/06/24 20:46 Procalcitonin 0.06 ng/ml (0-0.5) 08/06/24 20:46 TSH 4.617 uIu/ml (0.300-4.500) H 08/06/24 20:46 Free T4 1.21 ng/dl (0.61-1.60) 08/06/24 20:46 Urine Color Yellow 08/07/24 00:05 Urine Appearance Clear (Clear) 08/07/24 00:05 Urine pH 5.0 (4.5-7.5) 08/07/24 00:05 Ur Specific [place] 1.038 (1.000-1.030) H 08/07/24 00:05 Urine Protein Trace (Negative) H 08/07/24 00:05 Urine Glucose (UA) Negative (Negative) 08/07/24 00:05 Urine Ketones Trace (Negative) H 08/07/24 00:05 Urine Blood Negative (Negative) 08/07/24 00:05 Urine Nitrite Positive (Negative) A 08/07/24 00:05 Urine Bilirubin Negative (Negative) 08/07/24 00:05 Urine Urobilinogen Negative (Negative) 08/07/24 00:05 Ur Leukocyte Esterase Trace (Negative) H 08/07/24 00:05 Urine WBC (Auto) 0-5 /hpf (0-5) 08/07/24 00:05 Urine RBC (Auto) 0-2 /hpf (0-2) 08/07/24 00:05 U Hyaline Cast (Auto) 0-2 /lpf (0-2) 08/07/24 00:05 U Epithel Cells (Auto) 0-2 /hpf (0-2) 08/07/24 00:05 Urine Bacteria (Auto) 3+ (None Seen) H 08/07/24 00:05 Impressions Abdomen/Pelvis CT 08/06/24 22:02 Exam(s): CT ABDOMEN + PELVIS With Contrast IV Amt: 93 ml EXAM: CT Abdomen and Pelvis With Intravenous Contrast CLINICAL HISTORY: Reason for exam: trauma, syncope, pain, fall. TECHNIQUE: Axial computed tomography images of the abdomen and pelvis with intravenous contrast. CTDI is 36.18 mGy and DLP is 3210.82 mGy-cm. Automated exposure control was utilized for the study. A dose lowering technique was utilized adhering to the principles of ALARA. CONTRAST: Patient received 93 ml of IV contrast COMPARISON: No relevant prior studies available. FINDINGS: Lung bases: Unremarkable. No mass. No consolidation. Pleural space: Moderate RIGHT and small LEFT pleural effusions. ABDOMEN: Liver: Unremarkable. No mass. Gallbladder and bile ducts: Unremarkable. No calcified stones. No ductal dilation. Pancreas: Unremarkable. No mass. No ductal dilation. Spleen: Unremarkable. No splenomegaly. Adrenals: Unremarkable. No mass. Kidneys and ureters: Unremarkable. No solid mass. No hydronephrosis. Stomach and bowel: Diverticulosis, without acute diverticulitis. No small bowel obstruction. No free intraperitoneal air. PELVIS: Appendix: No findings to suggest acute appendicitis. Bladder: Unremarkable. No mass. Reproductive: Hysterectomy. ABDOMEN and PELVIS: Intraperitoneal space: Unremarkable. No free air. No significant fluid collection. Bones/joints: Degenerative changes of the spine. No acute fracture. No dislocation. Soft tissues: Anasarca. Vasculature: Atherosclerotic changes of the aorta. No abdominal aortic aneurysm. Lymph nodes: Unremarkable. No enlarged lymph nodes. IMPRESSION: 1. Moderate RIGHT and small LEFT pleural effusions. 2. Hysterectomy. 3. Diverticulosis, without acute diverticulitis. No small bowel obstruction. No free intraperitoneal air. Electronically signed by: Oracio Kent MD 08/06/24 23:[address] 08/06/24 22:02 Exam(s): CT C SPINE EXAM: CT Cervical Spine Without Intravenous Contrast CLINICAL HISTORY: Reason for exam: trauma, syncope, pain, fall. TECHNIQUE: Axial computed tomography images of the cervical spine without intravenous contrast. CTDI is 36.18 mGy and DLP is 3210.82 mGy-cm. Automated exposure control was utilized for the study. A dose lowering technique was utilized adhering to the principles of ALARA. COMPARISON: No relevant prior studies available. FINDINGS: The vertebral body heights are maintained. The craniocervical junction is intact. The atlanto-dens interval is maintained. The dens is intact. There is no spondylolisthesis. Multilevel cervical spondylosis and degenerative disc disease. Straightening of the cervical lordosis. Small RIGHT pleural effusion. IMPRESSION: No acute fracture or subluxation of the cervical spine. Electronically signed by: Oracio Kent MD 08/06/24 23:[address] 08/06/24 22:02 Exam(s): CT CHEST With Contrast IV Amt: 93 ml EXAM: CT Chest With Intravenous Contrast CLINICAL HISTORY: trauma, syncope, pain, fall. TECHNIQUE: Axial computed tomography images of the chest with intravenous contrast. CTDI is 36.18 mGy and DLP is 3210.82 mGy-cm. Automated exposure control was utilized for the study. A dose lowering technique was utilized adhering to the principles of ALARA. CONTRAST: Patient received 93 ml of IV contrast COMPARISON: No relevant prior studies available. FINDINGS: Lungs: Mild bilateral dependent and compressive atelectasis. 1.6 x 1.2 cm noncalcified suspected mass in the right lower lobe. Pleural space: Right greater than left pleural effusions. No pneumothorax. Heart: No cardiomegaly. Trace pericardial effusion. Coronary artery calcifications. Bones/joints: Periosteal reaction and deformity of the partially visualized humeral head and scapula suggesting that subacute partially healed fracture. No acute fracture. Degenerative changes of the thoracic spine. 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 Soft tissues: Diffuse subcutaneous infiltration. Small hiatal hernia. Vasculature: Unremarkable. No thoracic aortic aneurysm. Lymph nodes: Scattered mediastinal lymph nodes, largest near the P1 and a 1.1 x 2 cm. IMPRESSION: No acute fracture. Periosteal reaction and deformity of the partially visualized humeral head and scapula suggesting that subacute partially healed fracture. Bilateral pleural effusions with associated minimal atelectasis. 1.6 x 1.2 cm noncalcified suspected mass in the right lower lobe. Nonspecific mediastinal lymph nodes. Senescent changes. Electronically signed by: Connor Ro M.D. 08/07/24 00:[address] 08/06/24 22:02 Exam(s): CT HEAD Without Contrast EXAM: CT Head Without Intravenous Contrast CLINICAL HISTORY: Reason for exam: trauma, syncope, pain, fall. TECHNIQUE: Axial computed tomography images of the head/brain without intravenous contrast. CTDI is 36.18 mGy and DLP is 3210.82 mGy-cm. Automated exposure control was utilized for the study. A dose lowering technique was utilized adhering to the principles of ALARA. COMPARISON: No relevant prior studies available. FINDINGS: No acute intracranial hemorrhage. No midline shift or mass effect. The territorial bustamante-white matter differentiation is maintained throughout. Age-related cerebral volume loss. Periventricular and subcortical white matter hypoattenuation, consistent with chronic microangiopathy. The visualized orbits appear grossly unremarkable. The calvarium is intact. The visualized paranasal sinuses and mastoid air cells are grossly clear. IMPRESSION: No acute intracranial hemorrhage, midline shift, or mass effect. Electronically signed by: Oracio Kent MD 08/06/24 23:42 PM Diagnostic Findings EKG as per my interpretation : Rate 85, A-fib, normal axis, septal leads, T wave abnormalities, septal leads, low voltage
[2024-08-07] MEDS ORDERED: GLUCOSE 40% GEL 15 GM TUBE PO PRN (01:38)
[2024-08-07] MEDS ORDERED: GLUCAGON FOR INJ 1 MG VIAL SQ PRN (01:38)
[2024-08-07] MEDS ORDERED: GLUCOSE 10 TAB/TUBE PO PRN (01:38)
[2024-08-07] MEDS ORDERED: CARBOHYDRATES FOR HYPOGLYCEMIA PO PRN (01:38)
[2024-08-07] MEDS ORDERED: DEXTROSE 50% 50 ML SYRINGE IV PRN (01:38)
[2024-08-07] MEDS ORDERED: PROMETHAZINE 6.25 MG/50.25 ML BAG IV PRN (01:39)
[2024-08-07] MEDS ORDERED: ACETAMINOPHEN 500 MG TAB PO PRN (01:39)
[2024-08-07] MEDS ORDERED: MoRPHine SULFATE 4 MG/ML 1 ML CARP\\VIAL IV PRN (01:39)
[2024-08-07] MEDS ORDERED: oxyCODONE HCL IR 5 MG TAB (IMMEDIATE RELEASE) PO PRN (01:39)
[2024-08-07] MEDS: PANTOprazole 80 MG in DEXTROSE 5% 100 ML IV STA (01:44)
[2024-08-07] MEDS ORDERED: ALBUT/IPRATROP 3MG/0.5MG NEB 3 ML VIAL NEB PRN (01:46)
[2024-08-07] MEDS: ALBUT/IPRATROP 3MG/0.5MG NEB 3 ML VIAL NEB STA (02:04)
[2024-08-07] MEDS: cefTRIAXone SODIUM 2,000 MG/50 ML BAG IV STA (02:05)
[2024-08-07 02:52] LABS: Basophils # (auto) 0.05 K/uL (0.00-0.20); Basophils % (auto) 0.4 %; Eosinophils # (auto) 0.02 K/uL (0.00-0.50); Eosinophils % (auto) 0.2 %; Hematocrit (blood only) 30.3 % (37.0-47.0); Immature Granulocytes # (auto) 0.03 K/uL (0.01-0.20); Immature Granulocytes % (auto) 0.3 %; Lymphocytes # (auto) 1.19 K/uL (1.20-3.40); Lymphocytes % (auto) 10.1 %; Mean Corpuscular Hemoglobin 25.4 pg (25.0-34.0); Mean Corpuscular Hgb Conc 29.7 g/dL (32.0-36.0); Mean Corpuscular Volume 85.4 fL (80.0-100.0); Mean Platelet Volume 10.3 fL (9.4-12.4); Monocytes # (auto) 1.17 K/uL (0.11-0.59); Neutrophils # (auto) 9.29 K/uL (1.40-6.50); Platelet Count 233 K/uL (130-400); RDW Coefficient of Variation 15.1 % (11.5-14.5); RDW Standard Deviation 47.8 fL (36.4-46.3); Red Blood Count 3.55 M/uL (4.20-5.40); Reticulocyte % 2.63 % (0.50-2.00); White Blood Count 11.75 K/ul (4.8-10.8)
[2024-08-07 02:59] LABS: BUN Creatinine Ratio 44.3 (10-20); Calcium 8.6 mg/dl (8.6-10.3); Creatinine Clr Calc Pharmacy 50.3 ml/min; Potassium 4.5 mmol/L (3.5-5.1)
[2024-08-07 03:19] LABS: Ferritin 23.7 ng/ml (8-388)
[2024-08-07] MEDS: INSULIN ASPART PER UNIT CHARGE SC STA (03:29)
[2024-08-07] MEDS: ACETAMINOPHEN 325 MG TAB PO PRN (04:01)
[2024-08-07] MEDS: PANTOprazole 40 MG in DEXTROSE 5% MINI-B 100 ML IV SCH (04:03)
[2024-08-07 04:05] LABS: Folate (Folic Acid),Ser orPlas 17.27 ng/ml (>5.38)
[2024-08-07] MEDS: ALBUMIN 25% 12.5 GM/50 ML VIAL IV ONE (05:02)
--- NOTE | 2024-08-07 07:35 | Cardiology Consultation ---
Date of Consultation August 07, 2024 Assessment & Plan (1) CHF (congestive heart failure): (2) Atrial fibrillation: (3) Syncope and collapse: Plan Syncope. History suggests marked hypoglycemia as etiology. Acute decompensated diastolic congestive heart failure, HFpEF. Prior to arrival diuretic was HCTZ 12.5 mg/day Received 20 mg of IV furosemide in the ER. Agree with furosemide 40 mg IV twice per day for now. Follow electrolytes closely. Will need loop diuretic on discharge Consider addition of spironolactone Hold LELO inhibitor for now, Re: Hypotension. Refer for resting echocardiography Atrial fibrillation, with a rapid ventricular response. Echo at [facility] in May with severely dilated left atrium Recommend rate control strategy Prior to arrival metoprolol dosing per chart review was 100 mg/day Start with metoprolol succinate 50 mg once per day for now Maintain telemetry [id number] Score 7 points. Resume Eliquis anticoagulation when determined to be safe from a GI standpoint. Discontinue aspirin 81 mg/day Avoid NSAID's. Mild rhabdomyolysis. Hold statin for now, eventually switching from lovastatin to atorvastatin 40 mg/day Supervising Physician Co-Signing Physician Notes I spent a total of 50 minutes on the date of service in preparation, delivery, and documentation of the care provided to this patient, excluding any time spent in the performance of separately billed services. I have personally performed a history and physical examination on the patient. I have reviewed the advance practitioner's documentation, and I agree with, and take responsibility for the plan of care. History of Present Illness Reason for Consultation: CHF Requesting Physician: Dr. Almonte Attending Physician: Dr. Albert Larose, History of Present Illness Patient is being in her usual state of health until May 2024 at which time she suffered a fall in the driveway. Hospitalized at [facility] with a right humeral fracture and left thumb fracture treated conservatively, incidentally found to be in atrial fibrillation. Prior to arrival metoprolol succinate continued in May; Eliquis anticoagulation initiated. Patient notes being very inactive at baseline. Patient notes needing checking her blood sugars and administering insulin due to significant peripheral neuropathy. Notes marked hypoglycemic episodes a couple times per day for many weeks. Patient was found at home on the floor unconscious by the lady who helps her with her administer insulin. EMS summoned, blood sugar in the 40s, transported to [facility]. Multiple issues found in the ER - UTI, volume overload, right pleural effusion, right lower lobe lung mass, anemia, heme positive melanotic stools reported, mild rhabdomyolysis Cardiology consultation requested due to congestive heart failure, atrial fibrillation Patient denies prior cardiac history until May 2024 at which time she was found to be in atrial fibrillation. Eliquis anticoagulation initiated at that time. Patient denies history of CHF, IA, CAD, heart murmur, rheumatic fever, or scarlet fever. No activity related chest pain. Dyspnea develops when walking from room to room in the house. Since the fall and hospitalization in May patient has been sleeping in the recliner or sofa. Notes lower extremity peripheral edema since that time. No PND. Family History: Not notable for CAD. Mother with Parkinson and diabetes. Father with liver cancer. Social History: Reformed smoker, quit in 1996. No significant alcohol. 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 Three children. Lives in [place]. Allergies Allergy/AdvReac Type Severity Reaction Status Date / Time amoxicillin Allergy Mild RASH,ITCHIN Verified 08/07/24 01:22 G adhesive tape Allergy Unknown rash with Verified 08/07/24 01:35 bandaids & all tape except Paper Home Medications Medication Instructions Recorded Confirmed Type acetaminophen 500 mg capsule 1,000 mg PO DAILY PRN Pain 08/07/24 08/07/24 History albuterol sulfate 90 mcg/actuation 2 puff inhalation Q4H PRN SOB 08/07/24 08/07/24 History aerosol inhaler apixaban 5 mg tablet (Eliquis) 5 mg PO BID 08/07/24 08/07/24 History ascorbic acid (vitamin C) 500 mg 500 mg PO DAILY 08/07/24 08/07/24 History tablet (Vitamin C) aspirin 81 mg capsule 81 mg PO DAILY 08/07/24 08/07/24 History blood-glucose meter (OneTouch 08/07/24 08/07/24 History Ultra2 Meter) cholecalciferol (vitamin D3) 25 25 mcg PO DAILY 08/07/24 08/07/24 History mcg (1,000 unit) capsule (Vitamin D3) cyanocobalamin (vitamin B-12) 1,000 mcg PO QAM 08/07/24 08/07/24 History 1,000 mcg tablet insulin aspar prot-insulin aspart See Rx Instructions .Route .COMPLEX 08/07/24 08/07/24 History 100 unit/mL (70-30) subcutaneous pen (Novolog Mix 70-30FlexPen U-100) latanoprost 0.005 % eye drops 1 drp ophthalmic (eye) HS 08/07/24 08/07/24 History lisinopril 0 mg PO DAILY 08/07/24 08/07/24 History lovastatin 10 mg tablet 10 mg PO PM 08/07/24 08/07/24 History mecobalamin (vitamin B12) 1,000 1,000 mcg PO DAILY 08/07/24 08/07/24 History mcg chewable tablet (B12 Active) metoprolol succinate 100 mg 100 mg PO QAM 08/07/24 08/07/24 History tablet,extended release 24 hr omeprazole 20 mg capsule,delayed 20 mg PO QAM 08/07/24 08/07/24 History release Patient History Medical History Hyperlipidemia Hypertension Type 2 diabetes mellitus Social History Smoking Status: Former smoker Tobacco Type: Cigarettes Smoking End Date: 1998; Second Hand Exposure: No; Do You Dip or Chew Tobacco: No; Tobacco Cessation Education Requested by Patient: No Hx Alcohol Use: No Hx Substance Use: No Preferred Language: Amharic Communication Ability: Effective Assistant Women'S Tennis Coach Required: No Beliefs That Will Affect Care: None Current Living Situation: Family Current Living Situation Comment: lives with son Other Information That Helps Us Care for You: No Feels Safe at Home: Yes Safety Concerns: Feels Safe At This Time Assistive Devices: Cane, Glasses and Walker Review of Systems Review of Systems: Complete Review of Systems: Constitutional: No fevers, chills, or night sweats. HEENT: Glaucoma. Cataracts. Migraines. No history of amaurosis fugax. Pulmonary: History of tobacco abuse. No history of emphysema or COPD. Never jose maria luated for sleep apnea. No history of PE. Cardiac: See above. GI/Abd: GERD. No dysphagia. : Urinary incontinence. Chronic kidney disease. No liver problems. No history of pancreatic issues. Vascular: Denies history of carotid artery disease, AAA, or lower extremity claudication/PAD. Hematologic: No coagulation disorder. Eliquis initiated in May 2024 Musculoskeletal: Arthritis. Significant ambulatory dysfunction. Peripheral neuropathy, all extremities. Neurologic: Denies history of TIA/CVA or seizure Endocrine: T2DM. Complete Review of Systems is as stated above, negative, or noncontributory Physical Exam Physical Exam: General: A&Ox3. NAD. HENT: Normocephalic. Atraumatic. Eyes: PER. Conjunctiva pink, sclera clear. Neck: Unable to visualize neck veins. No carotid bruits. Heart: Irregularly irregular at 110 bpm. No murmur. No rub. Lungs: Absent breath sounds at the right base. Diminished a the left base. No wheeze. Abdomen: +BS. Soft. Nontender. No masses or organomegaly. Locke catheter in place, relatively clear urine. Extremities: 1-2+ chronic indurated edema. No clubbing. No cyanosis Limited neurological examination is without focal deficits. Pulses: radial=1/4, posterior tibial=0/4. Results & Data Vital Signs (Past 12 Hours) Vital Signs Temp Pulse Pulse Resp BP BP Pulse Ox 08/07/24 03:09 36.5 C 76 20 108/59 L 98 08/07/24 02:52 36.5 C 74 24 108/59 L 97 08/07/24 02:52 08/07/24 02:16 36.7 C 87 18 112/63 98 08/07/24 00:52 94 H 08/07/24 00:06 89 18 117/51 L 98 08/06/24 22:00 84 18 113/73 93 08/06/24 21:22 08/06/24 21:21 96 08/06/24 21:10 36.6 C 74 18 139/80 96 08/06/24 21:10 74 18 139/80 96 08/06/24 21:10 74 18 139/80 96 08/06/24 20:41 81 O2 Del Method 08/07/24 03:09 Room Air 08/07/24 02:52 Room Air 08/07/24 02:52 Room Air 08/07/24 02:16 Room Air 08/07/24 00:52 08/07/24 00:06 Room Air 08/06/24 22:00 Room Air 08/06/24 21:22 Room Air 08/06/24 21:21 Room Air 08/06/24 21:10 08/06/24 21:10 Room Air 08/06/24 21:10 Room Air 08/06/24 20:41 Laboratory Results Cardiac Enzymes 08/06/24 Range/Units 20:46 AST 45 H (13-39) U/L Troponin I High Sens 12.8 (0-14) pg/ml B-Natriuretic Peptide 251 H (0-100) pg/ml Coagulation 08/06/24 08/06/24 Range/Units 20:46 23:03 PT 16.9 H (9.0-12.0) Seconds B-Natriuretic Peptide 251 H (0-100) pg/ml CBC 08/06/24 08/07/24 08/07/24 Range/Units 20:46 02:31 07:54 WBC 13.22 H 11.75 H (4.8-10.8) K/ul RBC 3.84 L 3.55 L (4.20-5.40) M/uL Hgb 10.1 L 9.0 L 8.6 L (12.0-16.0) g/dl Hct 33.5 L 30.3 L 28.4 L (37.0-47.0) % Plt Count 226 233 (130-400) K/uL Neut # (Auto) 10.86 H 9.29 H (1.40-6.50) K/uL Lymph # (Auto) 0.84 L 1.19 L (1.20-3.40) K/uL Dundy # (Auto) 1.30 H 1.17 H (0.11-0.59) K/uL Eos # (Auto) 0.06 0.02 (0.00-0.50) K/uL Baso # (Auto) 0.06 0.05 (0.00-0.20) K/uL Comprehensive Metabolic Panel 08/06/24 08/07/24 Range/Units 20:46 02:31 Sodium 136 137 (136-145) mmol/L Potassium 4.2 4.5 (3.5-5.1) mmol/L Chloride 105 104 (98-107) mmol/L Carbon Dioxide 25 26 (21-32) mmol/L BUN 48 H 47 H (6-23) mg/dl Creatinine 1.01 1.06 (0.6-1.2) mg/dl Glucose 132 H 100 H (70-99(Fasting)) mg/dl Calcium 8.7 8.6 (8.6-10.3) mg/dl AST 45 H (13-39) U/L ALT 24 (7-52) U/L Alkaline Phosphatase 151 H (34-104) U/L Total Protein 6.3 (6.0-8.3) gm/dl Albumin 3.5 (3.4-5.0) gm/dl Intake and Output 08/06/24 08/07/24 08/07/24 22:59 06:59 14:59 Intake Total 100 / 320 220 / 320 78 / 78 Output Total 325 / 325 Balance 100 / -5 -105 / -5 Intake: IV 100 / 320 220 / 320 / Acetaminophen 1,000 mg In 100 100 / 100 ml @ 400 mls/hr IV NOW STA Rx#: [id number] Albumin 25% 12.5 gm In 50 ml @ 50 / 50 50 mls/hr IV ONE ONE Rx#: [id number] PANTOprazole 40 mg In Dextrose 78 / 78 5% Mini-B 100 ml @ 8 MG/HR 20 mls/hr IV Q5H [facility] Rx#:[id number] PANTOprazole 80 mg In Dextrose 120 / 120 5% 100 ml @ 480 mls/hr IV ONE STA Rx#:[id number] cefTRIAXone SODIUM 2,000 mg In 50 / 50 50 ml @ 100 mls/hr IV ONE STA Rx#:[id number] Output: Urine Amount (Catheter) 325 / 325 Locke/Indwelling 325 / 325 Other: Weight 109.8 kg 109.8 kg Weight Measurement Method Built in [facility] Diagnostic Findings Telemetry: Atrial fibrillation 90-130 bpm. No significant bradycardia. No pauses. (2) Atrial fibrillation Atrial fibrillation type: unspecified Qualified Code(s): I48.91 - Unspecified atrial fibrillation
[2024-08-07 07:38] LABS: Estimated Average Glucose 97 mg/dl
--- NOTE | 2024-08-07 07:47 | XRay Report ---
XR chest 1V portable CLINICAL HISTORY: fall TECHNIQUE: Single frontal radiograph of the chest was obtained. Comparison: Comparison is made to CT chest 08/06/2024 FINDINGS: No lines and tubes are seen. Cardiomegaly is noted. There is prominence and cephalization of the vasc ulature with Hong B lines seen. Likely a small bilateral pleural effusions. IMPRESSION: 1. Cardiomegaly and moderate pulmonary edema. 2. Small bilateral pleural effusions. ACT 112: Negative or not required by law. Electronically signed by: Frank Bacon M.D. 08/07/2024 7:46 AM
[2024-08-07] MEDS: INSULIN ASPART PER UNIT CHARGE SC SCH (07:56)
[2024-08-07 08:10] LABS: Hematocrit (blood only) 28.4 % (37.0-47.0); Hemoglobin 8.6 g/dl (12.0-16.0)
--- OUTSIDE RECORDS SUMMARY | 2024-08-07 08:35 | External Medical Summary | Summary of Care ---
Demographics Address [address] [place] [address] Home Phone Mobile Phone Preferred Language Georgian Marital Status Unknown Orthodox Affiliation Unknown Race White Ethnic Group Not or Lati no Author Name Unknown Organization [facility] Address [address] [place] [address] Phone [phone] Care Team Providers Care Mop Worker Name Role Phone Emy Hawk DO Primary Care Provider Reason for Visit * Reason Onset Date Comments Appointment 06/23/2024 Ortho/Nartatez Encounter Details Date Type Department Care Team (Late st Contact Info) Description 06/23/2024 Telephone Family Medicine [address] [phone] Emy Hawk DO [address] [place] [address] [place] [id number] Appointment (Ortho/Nartatez ) Allergies Active Allergy Reactions Criticality Noted Date Comments Amoxicillin Rash 04/18/2003 rash Metformin Diarrhea Medium 07/23/2013 documented as of this encounter (statuses as of 06/23/2024) Medications Medication Sig Dispensed Refills Start Date End Date Status ASPIRIN 81 MG PO TABSIndications:DM type 2, not at goal ([facility]) 1 TABLET DAILY 0 0 08/23/2008 Active Cholecalciferol (VITAMIN D3) 2000 UNITS CapsuleIndications :Vitamin D deficiency TAKE ONE CAPSULE BY MOUTH DAILY. 90 Cap 1 02/17/2017 Active Latanoprost 0.005 % EMUL Instill into eye. Instill 1 drop in each eye at bedtime Active OneTouch Ultra Blue In Vitro Strip (Glucose Blood)Indications: Type 2 diabetes mellitus with stage 3 chronic kidney disease, with long-term current use of insulin, unspecified whether stage 3a or 3b CKD ([facility]) Tests blood sugar 2 times daily as directed. Dx E11.9 pt is on insulin 60 Strip 5 01/19/2021 Active OneTouch UltraSoft LancetsIndications :Type 2 diabetes mellitus with stage 3 chronic kidney disease, with long-term current use of insulin, unspecified whether stage 3a or 3b CKD ([facility]) Use to test glucose up to 2 times daily, as directed. Diagnosis E11.9 pt is on insulin 60 Each 5 01/19/2021 Active Insulin Syringe-Needle U-100 30G X 1/2" 0.5 MLIndications:Type 2 diabetes mellitus with stage 3a chronic kidney disease, with long-term current use of insulin ([facility]) USE TWICE DAILY WITH INSULIN, DX : E11.9 200 Each 03/04/2022 Active Lovastatin 40 MG Oral TabletIndications: Dyslipidemia, goal LDL below 100 TAKE 1 TABLET BY MOUTH EVERYDAY AT BEDTIME 30 Tablet 11 07/01/2022 Active Lisinopril-hydroCH LOROthiazide 20-12.5 MG Oral TabletIndications: Essential hypertension with goal blood pressure less than 140/90 Take by mouth 1 Tablet in the morning. 30 Tablet 5 07/09/2022 Active Omeprazole 20 MG Oral Capsule Delayed Release (PriLOSEC)Indicati ons:Gastroesophage al reflux disease without esophagitis Take 1 Capsule by mouth in the morning. 90 Capsule 3 07/29/2023 Active Ventolin HFA 108 (90 Base) MCG/ACT Inhalation Aerosol Solution Inhale 2 Puffs by mouth every 4 hours as needed for Wheezing. 54 g 1 09/23/2023 Active Vitamin B-12 1000 MCG Oral Tablet (Cyanocobalamin) Take 1 Tablet by mouth in the morning. 90 Tablet 3 11/04/2023 Active Metoprolol Succinate ER 100 MG Oral Tablet Extended Release 24 Hour (toPROL XL)Indications:Hyp ertensive kidney disease with stage 3 chronic kidney disease, unspecified whether stage 3a or 3b CKD ([facility]) Take 1 Tablet by mouth in the morning. 90 Tablet 1 03/22/2024 Active Insulin Aspart Prot & Aspart (70-30) 100 UNIT/ML Subcutaneous Suspension (NovoLOG Mix 70/30)Indications: Type 2 diabetes mellitus with hemoglobin A1c goal of less than 8.0% ([facility]) INJECT 74 UNITS SUBCUTANEOUSLY IN THE MORNING AND 64 UNITS SUBCUTANEOUSLY BEFORE SUPPER 50 mL 1 05/19/2024 Active OneTouch Ultra 2 w/Device KitIndications:Typ e 2 diabetes mellitus with stage 3 chronic kidney disease, with long-term current use of insulin, unspecified whether stage 3a or 3b CKD (HCC) Use as directed to check blood sugar level once daily; dx code: E11.9 1 Kit 06/22/2024 Active Eliquis 5 MG Oral Tablet Take 1 Tablet by mouth in the morning and 1 Tablet before bedtime. 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 Abnormality of gait 10/27/2008 GENERAL OSTEOARTHROSIS Peripheral sensory neuropathy documented as of this encounter (statuses as of 06/23/2024) Resolved Problems Problem Noted Date Diagnosed Date Resolved Date Type 2 diabetes mellitus wit h stage 3 chronic kidney disease, with long-term current use of insulin 06/06/2023 06/06/2023 Type 2 diabetes mellitus wit h stage 3a chronic kidney disease, with long-term current use of insulin 02/27/2021 04/05/2021 Type 2 diabetes mellitus wit h stage 3 chronic kidney disease, with long-term current use of insulin 11/29/2019 09/02/2022 Hypertensive kidney disease with chronic kidney disease stage III 05/19/2019 09/02/2022 Type 2 diabetes mellitus wit h stage 3 chronic kidney disease 05/19/2019 06/05/2022 Mild nonproliferative diabet ic retinopathy of right eye 06/05/2018 12/06/2022 Long-term insulin use 09/24/20172019 HTN, goal below 140/90 04/03/201510/07 Kidney disease, chronic, sta ge III (GFR 30-59 ml/min) 01/02/2015 06/03/2019 Overview: Per CKD protocol #1 HTN, goal below 140/80 06/08/201204/03 Overview: Per HTN Protocol #27. Diabetes mellitus with background retinopathy 02/25/2005/31/2020 Overview: ICD-10 update of inactive term Kidney Dz,Chronic (GFR 60-89) Stage II 09/27/2010 04/03/2015 HTN, goal below 130/80 01/23/201006/11 CAPSULITIS ADHESIVE 01/23/2010 06/13/20 10 Type 2 diabetes mellitus wit h hemoglobin A1c goal of less than 7.0% 08/03/2009 09/24/2017 Overview: Modified per Diabetes protocol #14. ICD-10 update of inactive term DIAB RENAL MANIF ADULT 08/21/200811/09 DM type 2, not at goal 03/16/200408/03 Overview: Modified per Diabetes protocol #14. LOC PRIM OSTEOART-PELVIS 09/01/200201/2008 Lateral epicondylitis 09/01/20022007 FEM STRESS INCONTINENCE 01/08/200203/2019 PURE HYPERCHOLESTEROLEM 12/16/200109/19 Overview: Per Lipid Taxonomy. Need for prophylactic hormon e replacement therapy (postmenopausal) 08/23/2008 Uterine leiomyoma 08/23/2008 Other specified causes of urethral stricture 09/24/2017 Type 2 diabetes mellitus wit h hemoglobin A1c goal of less than 7.0% 08/23/2008 Overview: ICD-10 update of inactive term COMMON MIGRAINE WITHOUT MENT ION OF INTRACTABLE MIGRAINE 09/24/2017 Tension headache 09/24/2017 Carpal tunnel syndrome 09/24 Fasciitis 08/23/2008 DM type 2 causing eye disease 09/24/2017 documented as of this encounter (statuses as of 06/23/2024) Immunizations Name Administration Dates Next Due COVID-19 mRNA, LNP-s, No Pre serve, 2-Dose Series (Moderna) 03/26/2021,02/26/2021 COVID-19, mRNA, LNP-s, PF, B ooster, 100mcg/0.5mg (Moderna) 12/08/2021 Covid-19, Mrna, Lnp-s, Pf, B ivalent, 30 Mcg, IM, 12 yrs and above (Akermin) 08/05/2022 Pneumococcal Conjugate Vacc, 13 Valent (Prevnar) 11/02/2014 Pneumococcal Polysaccharide PPV23 (Pneumovax) 10/07/2016,08/19/2008 Seasonal Influenza, High Dos e, Trivalent, PF, IM (Fluzone HD) 08/11/2019 Seasonal Influenza, PF, 6 M & above, IM , (FluLaval or Fluzone) 08/11/2019,09/25/2018,09/24/2017 Seasonal Influenza, Quadriva lent Hd (Fluzone Hd) 07/30/2023,12/05/2021 Seasonal Influenza, Quadriva lent Hd, 65+ Yrs 08/05/2022 Seasonal Influenza, Quadriva lent, No Preserve, IM 10/07/2016,07/25/2015 Seasonal Influenza, Quadriva lent, No Preserve, Mdck 09/28/2020 Seasonal Influenza, Trivalen t, (IIV3), with Preserv, (Fluzone) 07/28/2014,07/02/2013,08/26/2012,10/16,09/27/2010,07/11/2009,07/20/2008 ,09/01/2002 TDAP (age 10 and older)(Boostrix) 05/28/2019 Varicella Zoster Vaccine (Adult) 07/20/2012 documented as of this encounter Social History Tobacco Use Types Packs/Day Years Used Date Smoking Tobacco: Former Cigarettes 0.5 30 Smokeless Tobacco: Never Quit: 10/20/1996 Comments:1996 Alcohol Use Standard Drinks/Week Comments No 0 (1 standard drink = 0.6 oz pur e alcohol) PHQ-2 Answer Date Recorded PHQ Adult Total Score 0 03/04/2022 Hunger Vital Sign Answer Date Recorded Worried About Running Out of Food in the Last Ye ar Never true 11/29/2019 Ran Out of Food in the Last Year Never true 11/29/2019 Utilities Answer Date Recorded Do you have trouble paying y our heating, water, or electric bill? (Adult - for ages 18 years and over) Not on file 04/06/2024 Is your family able to pay t he heat, water, or electric bill? (Household - for ages 0-17 years) Not on file 04/06/2024 Does your family have access to good internet? (Household - for ages 0-17 years) Not on file 04/06/2024 Social Connections Answer Date Recorded How often do you feel lonely or isolated from those around you? (Adult - for ages 18 years and over) Not on file 04/06/2024 Sex and Gender Information Value Date Recorded Sex Assigned at Female 03/04/2022 10:38 AM EDT Gender Identity Female 03/04/2022 10:38 AM EDT Sexual Orientation Straight 03/04/2022 10 :38 AM EDT Job Start Date Occupation Industry Not on file Not on file Not on file documented as of this encounter Miscellaneous Notes * Telephone Encounter - Janeth Rudolph OSA - 06/23/2024 4:10 PM EDT 06/25/24 8:[address] Plummer. Pt aware. Referral and p note faxed to [phone]. * Telephone Encounter - Janeth Rudolph OSA - 06/23/2024 12:06 PM EDT I left message on the at Dr. Plummer's office to call me (RE: Scheduling appt). documented in this encounter Plan of Treatment Upcoming Encounters Date Type Department Care Team (Late st Contact Info) Description 01/07/2025 9:30 AM EDT Office Visit Family Medicine [address] [place] [phone] [place] [address] Health Maintenance Due Date Last Done Comments Zoster Vaccines (2 of 3) 09/14/2012 07/20/2012 Adult Wellness Visit 05/17/2016 05/17/2015 Depression Screening 03/04/2023 03/04/2022 COVID-19 Vaccine ( season) 2024 08/05/2022, 08/05/2022, 12/08/2021, Additional history exists Influenza Vaccine (FLU shot) (#1) 2024 07/30/2023, 07/30/2023, 08/05/2022, Additional history exists HbA1c 11/26/2024 05/26/2024, 05/20, 12/02/2022, Additional history exists Diabetic Eye Exam 05/03/2025 05/03/2024, , 02/19/2024, Additional history exists Diabetic Foot Exam 05/25/2025 05/25/2024, 0 12/06/2022, 03/04/2022, Additional history exists Albumin/Creatinine Ratio 05/26/2025 024, 05/29/2023, 06/05/2022, Additional history exists GFR 05/26/2025 05/26/2024, 11/20, 06/05/2022, Additional history exists DXA Scan 12/09/2026 12/09/2022, 11/21, 07/27/2015, Additional history exists DTap/Tdap Vaccines (2 - Td or Tdap) 05/28/2029 05/28/2019 Pneumococcal Vaccine: 65+ Years Completed 10/07/2016, 11/02/2014, 08/19/2008 HPV (Gardasil) Vaccine Aged Out No lo nger eligible based on patient's age to complete this topic Hepatitis B Vaccine Aged Out No longe r eligible based on patient's age to complete this topic MENINGOCOCCAL (MENACTRA/MENVEO) Aged Out No longer eligible based on patient's age to complete this topic documented as of this encounter Medical Devices Not on filedocumented as of this encounter Care Teams Mop Worker Relationship Specialty Start Date End Date Emy Hawk DO [address] [place] [address] [place] [id number] PCP - General Internal Medicine 03/08/19 documented as of this encounter
--- OUTSIDE RECORDS SUMMARY | 2024-08-07 08:35 | External Medical Summary ---
Demographics Address [address] [facility] [address] [place] [address] Phone Unavailable Preferred Language Unknown Marital Status Unknown Scientologist Affiliation Unknown Race Unknown Ethnic Group Unknown Author Name Unknown Address Unknown Organization K01:[facility] [place] [address] [place] [address] Laboratory Report Ordering Provider Test Date Status GAYATRI LONGORIA 05/26/2024 07:59:55 Final Normal: <30 mg/g creatinine< br/>High: 30-300 mg/g creatinine
Very High: >300 mg/g creatinine
Nephrotic: >2200 mg/g creatinine Observation Date Value Abnormality Reference (Units ) Status Albumin, Urine 05/26/2024 07:59:55 7.19 (mg/dL) Final Creatinine, Urine 05/26/2024 07:59:55 233 (mg/dL) Final Albumin/Creatinine [Mass Ratio] in Urine 05/26/2024 07:59:55 31 Above high normal <30 (mg/g Creat) Final Performing Location [facility] [place] [address] [place] [address]
--- OUTSIDE RECORDS SUMMARY | 2024-08-07 08:35 | External Medical Summary ---
Demographics Address [address] [facility] [place] [address] Phone Unavailable Preferred Language Unknown Marital Status Unknown Samaritan Affiliation Unknown Race Unknown Ethnic Group Unknown Author Name Unknown Address Unknown Organization [id number]:[facility] - [address] [place] [address] Laboratory Report Ordering Provider Test Date Status GAYATRI LONGORIA 05/26/2024 07:59:55 Final Observation Date Value Abnormality Reference (Units ) Status Vitamin B12 05/26/2024 07:59:55 [phone] (pg/mL) Final Performing Location [facility] - [address] [place] [address]
--- OUTSIDE RECORDS SUMMARY | 2024-08-07 08:35 | External Medical Summary | Summary of Care ---
Demographics Address [address] [place] [address] Home Phone Mobile Phone Preferred Language New Zealander Marital Status Unknown Confucianism Affiliation Unknown Race White Ethnic Group Not or Lati no Author Name Unknown Organization [facility] Address [address] [place] [address] Phone [phone] Care Team Providers Care Materials Assistant Name Role Phone Emy Hawk DO Primary Care Provider [phone] Reason for Referral * Evaluate & Treat - Unlimited Visits (Within 3 days (urgent)) - Authorized Specialty Diagnoses / Procedures Referred By Julieta franco Referred To Contact Orthopaedic Surgery / Orthopedics Diagnoses Closed fracture of proximal end of right humerus with routine healing, unspecified fracture morphology, subsequent encounter Closed nondisplaced fracture of phalanx of left thumb with routine healing, unspecified phalanx, subsequent encounter Emy Hawk DO [address] [place] [address] [place] [address] Referral ID Status Reason Start Date Expiration Date Visits Requested Visits Authorized [id number] Authorized Specialty Services Required 06/23/[phone] Question Answer Referral Priority Within 3 days (urgent) Where should this appointment be scheduled? External - Dr. Plummer What body part is the patient being seen for? Arm/Elbow What condition is the patient being seen for? Fracture including related infection Comments Seen by Dr. Plummer in the hospital Reason for Visit * Reason Onset Date Comments Hospital Follow-Up Hospital Follow-Up 06/23/2024 Encounter Details Date Type Department Care Team (Late st Contact Info) Description 06/23/2024 11:10 AM EDT Office Visit Family Medicine [address] [place] [phone] Emy Hawk DO [address] [place] [address] [place] [phone] Hospital discharge follow-up*; Closed fracture of proximal end of right humerus with routine healing, unspecified fracture morphology, subsequent encounter; Closed nondisplaced fracture of phalanx of left thumb with routine healing, unspecified phalanx, subsequent encounter; Type 2 diabetes mellitus with hemoglobin A1c goal of less than 8.0% ([facility]); Bilateral leg edema; Abrasion, leg w/o infection Allergies Active Allergy Reactions Criticality Noted Date Comments Amoxicillin Rash 04/18/2003 rash Metformin Diarrhea Medium 07/23/2013 documented as of this encounter (statuses as of 06/23/2024) Medications Medication Sig Dispensed Refills Start Date End Date Status ASPIRIN 81 MG PO TABSIndications:DM type 2, not at goal ([facility]) 1 TABLET DAILY 0 0 08/23/2008 [...] unspecified whether stage 3a or 3b CKD ([facility]) Tests blood sugar 2 times daily as directed. Dx E11.9 pt is on insulin 60 Strip 5 01/19/2021 Active OneTouch UltraSoft LancetsIndications :Type 2 diabetes mellitus with stage 3 chronic kidney disease, with long-term current use of insulin, unspecified whether stage 3a or 3b CKD ([facility]) Use to test glucose up to 2 times daily, as directed. Diagnosis E11.9 pt is on insulin 60 Each 5 01/19/2021 Active Insulin Syringe-Needle U-100 30G X 1/2" 0.5 MLIndications:Type 2 diabetes mellitus with stage 3a chronic kidney disease, with long-term current use of insulin ([facility]) USE TWICE DAILY WITH INSULIN, DX [...] unspecified whether stage 3a or 3b CKD ([facility]) Take 1 Tablet by mouth in the morning. 90 Tablet 1 03/22/2024 Active Insulin Aspart Prot & Aspart (70-30) 100 UNIT/ML Subcutaneous Suspension (NovoLOG Mix 70/30)Indications: Type 2 diabetes mellitus with hemoglobin A1c goal of less than 8.0% ([facility]) INJECT 74 UNITS SUBCUTANEOUSLY IN THE MORNING AND 64 UNITS SUBCUTANEOUSLY BEFORE SUPPER 50 mL 1 05/19/2024 Active OneTouch Ultra 2 w/Device KitIndications:Typ e 2 diabetes mellitus with stage 3 chronic kidney disease, with long-term current use of insulin, unspecified whether stage 3a or 3b CKD ([facility]) Use as directed to check blood sugar [...] 30 Mcg, IM, 12 yrs and above (Pfizer) 08/05/2022 Pneumococcal Conjugate Vacc, 13 Valent (Prevnar) [...] Trivalen t, (IIV3), with Preserv, (Fluzone) 07/28/2014,07/02/2013,08/26/2012,10/16,09/27/2010,07/11/2009,07/20/2008 TDAP (age 10 and older)(Boostrix) 05/28/2019 Varicella [...] on file documented as of this encounter Last Filed Vital Signs Vital Sign Reading Time Taken Comments Blood Pressure 112/54 06/23/2024 11:20 AM EDT Pulse 72 06/23/2024 11:20 AM EDT Temperature 36.3 C (97.3 F) 06/23/2024 11:20 AM E DT Respiratory Rate - - Oxygen Saturation 99% 06/23/2024 11:20 AM EDT Inhaled Oxygen Concentration - - Weight - - Height - - Body Mass Index - - documented in this encounter Patient Instructions * Patient Instructions* Emy Hawk DO - 06/23/2024 11:53 AM EDT I recommend that you get your RSV vaccine at the pharmacy prior to winter. documented in this encounter Progress Notes * Emy Hawk DO - 06/23/2024 11:23 AM EDT SUBJECTIVE: Erica Escoto is a 79 year old female. Chief Complaint Patient presents with Hospital Follow-Up Hospital Follow-Up Recent Admission: Patient was recently admitted to [facility]. The date of discharge was 06/18/24. Discharge report received and reviewed. Fell and broke her right humerus as well as her left thumb. She did not require surgery. She was found to have A-fib and was started on Eliquis. She has not picked this up yet. HPI: Erica Escoto presents today for HD follow up. She states it has been hard since returning home. She has trouble going to the bathroom by herself. She does have family that is helping her out. Home health is involved and will be seeing her later this week. She was to follow up with Dr. Plummer but has not heard about an appointment yet. She has been taking tylenol and ibuprofen for pain. Had confusion related to being in the hospital/narcotic use. She is on 70/30 insulin but would like switch to the pens. She would also to get a DEXCOM monitor to check her blood sugars. Patient Active Problem List Diagnosis GENERAL OSTEOARTHROSIS Peripheral sensory neuropathy Abnormality of gait Hyperlipidemia with target LDL less than 70 DM type 2 causing neurological disease ([facility]) GERD (gastroesophageal reflux disease) Vitamin D deficiency Type 2 diabetes mellitus with hemoglobin A1c goal of less than 8.0% ([facility]) Essential hypertension with goal blood pressure less than 140/90 Severe obesity with body mass index (BMI) of 35.0 to 39.9 with serious comorbidity ([facility]) Moderate nonproliferative diabetic retinopathy of both eyes with macular edema associated with type2 diabetes mellitus ([facility]) Primary open-angle glaucoma, bilateral, mild stage Current Outpatient Medications Medication Sig Dispense Refill ASPIRIN 81 MG PO TABS 1 TABLET DAILY 0 0 Cholecalciferol (VITAMIN D3) 2000 UNITS Capsule TAKE ONE CAPSULE BY MOUTH DAILY. 90 Cap 1 Latanoprost 0.005 % EMUL Instill into eye. Instill 1 drop in each eye at bedtime OneTouch Ultra Blue In Vitro Strip (Glucose Blood) Tests blood sugar 2 times daily as directed. Dx E11.9 pt is on insulin 60 Strip 5 OneTouch UltraSoft Lancets Use to test glucose up to 2 times daily, as directed. Diagnosis E11.9 ptis on insulin 60 Each 5 Insulin Syringe-Needle U-100 30G X 1/2" 0.5 ML USE TWICE DAILY WITH INSULIN, DX : E11.9 200 Each 0 Lovastatin 40 MG Oral Tablet TAKE 1 TABLET BY MOUTH EVERYDAY AT BEDTIME 30 Tablet 11 Lisinopril-hydroCHLOROthiazide 20-12.5 MG Oral Tablet Take by mouth 1 Tablet in the morning. 30 Tablet 5 Omeprazole 20 MG Oral Capsule Delayed Release (PriLOSEC) Take 1 Capsule by mouth in the morning. 90Capsule 3 Ventolin HFA 108 (90 Base) MCG/ACT Inhalation Aerosol Solution Inhale 2 Puffs by mouth every 4 hours as needed for Wheezing. 54 g 1 Vitamin B-12 1000 MCG Oral Tablet (Cyanocobalamin) Take 1 Tablet by mouth in the morning. 90 Tablet3 Metoprolol Succinate ER 100 MG Oral Tablet Extended Release 24 Hour (toPROL XL) Take 1 Tablet by mouth in the morning. 90 Tablet 1 Insulin Aspart Prot & Aspart (70-30) 100 UNIT/ML Subcutaneous Suspension (NovoLOG Mix 70/30) INJECT 74 UNITS SUBCUTANEOUSLY IN THE MORNING AND 64 UNITS SUBCUTANEOUSLY BEFORE SUPPER 50 mL 1 [employer] 2 w/Device Kit Use as directed to check blood sugar level once daily; dx code: E11.91 Kit 0 Eliquis 5 MG Oral Tablet Take 1 Tablet by mouth in the morning and 1 Tablet before bedtime. No current facility-administered medications for this visit. Current and discharge medications have been reconciled. Review of patient's allergies indicates: Allergen Reactions Metformin Diarrhea Amoxicillin Rash rash OBJECTIVE: BP 112/54 | Pulse 72 | Temp 36.3 C (97.3 F) | SpO2 99% Review Of Systems: Skin: bruising Eyes: negative Ears/Nose/Throat: negative Respiratory: negative Cardiovascular: negative Gastrointestinal: negative Genitourinary: negative Musculoskeletal: (+) not walking Neurologic: negative Psychiatric: negative Hematologic/Lymphatic/Immunologic: negative Endocrine: negative PHYSICAL EXAM: General: alert, healthy, no distress, well nourished, and well developed Neck: supple, no adenopathy Heart: regular rate & rhythm and no murmur Lungs: chest symmetric with normal AP diameter, no chest deformities noted, normal respiratory rateand rhythm Abdomen: abdomen soft and non-tender Extremities: no joint deformities, effusion, or inflammation, (+) tense bilateral LE edema Neuro Exam: alert & oriented x 3 with fluent speech, no focal motor/sensory deficits, in wheelchair, right arm is in a sling and left thumb Skin: (+) ecchymoses, (+) abrasion to the RLE ASSESSMENT: Hospital discharge follow-up (Primary) - DISCH MED RECON CUR MED LIS Closed fracture of proximal end of right humerus with routine healing, unspecified fracture morphology, subsequent encounter - follow up with Dr. Plummer. They have called for an appointment, but have not heard about a date/time yet. - ORTHOPAEDICS REFERRAL OP Closed nondisplaced fracture of phalanx of left thumb with routine healing, unspecified phalanx, subsequent encounter - ORTHOPAEDICS REFERRAL OP Type 2 diabetes mellitus with hemoglobin A1c goal of less than 8.0% (HCC) - she would like to switch to a pen instead of vial and is also interested in getting a CGM/Dexcom. Bilateral leg edema - will see if resolves over the next few days. If not, will give a short courseof lasix. Abrasion, leg w/o infection - okay to apply vaseline and a dressing until more healed. Follow Up: Return in about 6 months (around 12/21/2024) for as scheduled. | For: as scheduled I spent a total of 40-54 minutes (exact time 44 mins) minutes on the date of service in preparation, delivery, and documentation of the care provided to Erica Escoto excluding any time spent in performance of separately billed services. Emy Hawk DO documented in this encounter Nursing Notes * Soheila Dominguez CMA - 06/23/2024 11:13 AM EDT She is here for follow up from hospital. She fell on 06/15/24 resulting in multiple fractures. She was discharged on 06/18/24. She is struggling at home with the fractures. It makes things difficult. She wants to know if she can get insulin pens now instead of vials and syringes. She was already having trouble prior to the injury but now it is even more difficult. She also wants to know if she can get a CGM for her blood sugar. documented in this encounter Plan of Treatment Upcoming Encounters Date Type Department Care Team (Late st Contact Info) Description 01/07/2025 9:30 AM EDT Office Visit Family Medicine [address] [place] [phone] Emy Hawk DO [address] [place] [address] [place] [id number] Scheduled Referrals Name Type Priority Associated Diagnoses Orde r Schedule ORTHOPAEDICS REFERRAL OP Referral Within 3 days (urgent) Closed fracture of proximal end of right humerus with routine healing, unspecified fracture morphology, subsequent encounter Closed nondisplaced fracture of phalanx of left thumb with routine healing, unspecified phalanx, subsequent encounter Ordered: 06/23/2024 Health Maintenance Due Date Last Done Comments [...] Not on filedocumented as of this encounter Visit Diagnoses Diagnosis Hospital discharge follow-up- Primary Other follow-up examination Closed fracture of proximal end of right humerus with routine healing, unspecified fracture morphology, subsequent encounter Closed nondisplaced fracture of phalanx of left thumb with routine healing, unspecified phalanx, subsequent encounter Type 2 diabetes mellitus with hemoglobin A1c goal of less than 8.0% ([facility]) Bilateral leg edema Edema Abrasion, leg w/o infection Hip, thigh, leg, and ankle, abrasion or friction burn, without mention of infection documented in this encounter Care Teams Materials Assistant Relationship Specialty Start Date End Date Emy Hawk DO [address] [place] [address] [place] [id number] PCP - General Internal Medicine 03/08/19 documented as of this encounter
--- OUTSIDE RECORDS SUMMARY | 2024-08-07 08:35 | External Medical Summary | Summary of Care ---
Demographics Address [address] [place] [address] Home Phone Mobile Phone Preferred Language Wallisian Marital Status Unknown Samaritan Affiliation Unknown Race White Ethnic Group Not or Lati no Author Name Unknown Organization [facility] Address [address] [facility] [place] [address] Phone [phone] Care Team Providers Care Learning And Development Analyst Name Role Phone Emy Hawk DO Primary Care Provider Reason for Visit * Reason Onset Date Comments Home Health 06/22/2024 Encounter Details Date Type Department Care Team (Late st Contact Info) Description 06/22/2024 Telephone Family Medicine [address] [phone] Emy Hawk DO [address] [place] [address] [place] [phone] Home Health Allergies Active Allergy Reactions Criticality Noted Date Comments Amoxicillin Rash 04/18/2003 rash Metformin Diarrhea Medium 07/23/2013 documented as of this encounter (statuses as of 06/22/2024) Medications Medication Sig Dispensed Refills Start Date End Date Status ASPIRIN 81 MG PO TABSIndications:D M type 2, not at goal ([facility]) 1 TABLET DAILY 0 0 08/23/2008 Active Cholecalciferol (VITAMIN D3) 2000 UNITS CapsuleIndication s:Vitamin D deficiency TAKE ONE CAPSULE BY MOUTH DAILY. 90 Cap 1 02/17/2017 Active Latanoprost 0.005 % EMUL Instill into eye. Instill 1 drop in each eye at bedtime Active OneTouch Ultra Blue In Vitro Strip (Glucose Blood)Indications :Type 2 diabetes mellitus with stage 3 chronic kidney disease, with long-term current use of insulin, unspecified whether stage 3a or 3b CKD ([facility]) Tests blood sugar 2 times daily as directed. Dx E11.9 pt is on insulin 60 Strip 5 01/19/2021 Active OneTouch UltraSoft LancetsIndication s:Type 2 diabetes mellitus with stage 3 chronic kidney disease, with long-term current use of insulin, unspecified whether stage 3a or 3b CKD ([facility]) Use to test glucose up to 2 times daily, as directed. Diagnosis E11.9 pt is on insulin 60 Each 5 01/19/2021 Active Insulin Syringe-Needle U-100 30G X 1/2" 0.5 MLIndications:Typ e 2 diabetes mellitus with stage 3a chronic kidney disease, with long-term current use of insulin ([facility]) USE TWICE DAILY WITH INSULIN, DX : E11.9 200 Each 03/04/2022 Active Lovastatin 40 MG Oral TabletIndications :Dyslipidemia, goal LDL below 100 TAKE 1 TABLET BY MOUTH EVERYDAY AT BEDTIME 30 Tablet 11 07/01/2022 Active Lisinopril-hydroC HLOROthiazide 20-12.5 MG Oral TabletIndications :Essential hypertension with goal blood pressure less than 140/90 Take by mouth 1 Tablet in the morning. 30 Tablet 5 07/09/2022 Active Omeprazole 20 MG Oral Capsule Delayed Release (PriLOSEC)Indicat ions:Gastroesopha geal reflux disease without esophagitis Take 1 Capsule [...] Oral Tablet Extended Release 24 Hour (toPROL XL)Indications:Hy pertensive kidney disease with stage 3 chronic kidney disease, unspecified whether stage 3a or 3b CKD ([facility]) Take 1 Tablet by mouth in the morning. 90 Tablet 1 03/22/2024 Active Insulin Aspart Prot & Aspart (70-30) 100 UNIT/ML Subcutaneous Suspension (NovoLOG Mix 70/30)Indications :Type 2 diabetes mellitus with hemoglobin A1c goal of less than 8.0% ([facility]) INJECT 74 UNITS SUBCUTANEOUSLY IN THE MORNING AND 64 UNITS SUBCUTANEOUSLY BEFORE SUPPER 50 mL 1 05/19/2024 Active OneTouch Ultra 2 w/Device KitIndications:Ty pe 2 diabetes mellitus with stage 3 chronic kidney disease, with long-term current use of insulin, unspecified whether stage 3a or 3b CKD ([facility]) Use as directed to check blood sugar level once daily; dx code: E11.9 1 Kit 06/22/2024 Active OneTouch Ultra 2 w/Device KitIndications:Ty pe 2 diabetes mellitus with stage 3 chronic kidney disease, with long-term current use of insulin, unspecified whether stage 3a or 3b CKD ([facility]) Use as directed to check blood sugar level once daily; dx code: E11.9 1 Each 02/20/2023 06/22/20 24 Discontinu ed(Refill) documented as of this encounter (statuses as of 06/22/2024) Active Problems Problem Noted Date Diagnosed Date Primary open-angle glaucoma, bilateral, mild sta ge [...] as of this encounter (statuses as of 06/22/2024) Resolved Problems Problem Noted Date Diagnosed Date [...] as of this encounter (statuses as of 06/22/2024) Immunizations Name Administration Dates Next Due COVID-19 [...] Telephone Encounter - Janeth Rudolph OSA - 06/22/2024 12:43 PM EDT Appt scheduled, pt aware. * Telephone Encounter - Emy Hawk DO - 06/22/2024 12:36 PM EDT New glucometer sent to pharmacy. Please schedule HD appt. * Telephone Encounter - Malathi Kern LPN - 06/22/2024 12:15 PM EDT HH Admission/Start of Care Admission/Start of Care: Sandhya RN, Calling from: Dany Patient was Admitted to: [facility] , for: Fall; right humeral fracture from 06/15 to06/18 Referral ordered by: [facility] Referral received for: Senior Living, PT, and OT Planned start of care date:Yes, Date 06/19 Start of care completed on: YES Report/Concerns of:None Symptoms: none Vitals: T 97.3 P 94 RR 18 BP 142/84 SP O2 98% RA Lung sounds Clear Narrative: She is a diabetic and her glucometer quit working and she threw it out and has not received anotherone. They will call with any updates or additional concerns from the upcoming HH visit. Last Office Visit: 05/25/2024 Has patient been scheduled or seen in the office for a follow up visit: Needs contacted to schedulefollow up Advised that orders will be signed by Emy Hawk DO and to fax to the office for signature. [facility] documented in this encounter Plan of Treatment Upcoming Encounters Date Type Department Care Team (Late st Contact Info) Description 06/23/2024 11:10 AM EDT Office Visit [address] [phone] Emy Hawk DO [address] [place] [address] [place] [id number] 01/07/2025 9:30 AM EDT Office Visit [address] [place] [phone] Emy Hawk DO [address] [place] [address] [place] [id number] Health Maintenance Due Date Last Done Comments Zoster Vaccines (2 of 3) 09/14/2012 07/20/2012 Adult Wellness Visit 05/17/2016 05/17/2015 Depression Screening 03/04/2023 03/04/2022 COVID-19 Vaccine (2022-24 season) 2024 08/05/2022, 08/05/2022, 12/08/2021, Additional history [...] as of this encounter Visit Diagnoses Diagnosis Type 2 diabetes mellitus with stage 3 chronic kidney disease, with long-term current use of insulin, unspecified whether stage 3a or 3b CKD (HCC) documented in this encounter Care Teams Learning And Development Analyst Relationship Specialty Start Date End Date Emy Hawk DO [address] [place] [address] [place] [id number] PCP - General Internal Medicine 03/08/19 documented as of this encounter
--- OUTSIDE RECORDS SUMMARY | 2024-08-07 08:35 | External Medical Summary | Summary of Care ---
Demographics Address [address] [place] [address] Home Phone Mobile Phone Preferred Language Marshallese Marital Status Unknown Anabaptism Affiliation Unknown Race White Ethnic Group Not or Lati no Author Name Unknown Organization [facility] Address [address] [facility] [place] [address] Phone [phone] Care Team Providers Care Experimental Psychologist Name Role Phone Swati Mendieta DO Primary Care Provider Reason for Visit * Reason Onset Date Comments Medication Refill 07/28/2024 Encounter Details Date Type Department Care Team (Late st Contact Info) Description 07/28/2024 Refill Family Medicine [address] [place] [address] Sawti Mendieta DO [address] [place] [address] [place] [address] Gastroesophageal reflux disease without esophagitis Allergies Active Allergy Reactions Criticality Noted Date Comments Amoxicillin Rash 04/18/2003 rash Metformin Diarrhea Medium 07/23/2013 documented as of this encounter (statuses as of 07/29/2024) Medications Medication Sig Dispensed Refills Start Date End Date Status ASPIRIN 81 MG PO TABSIndications:DM type 2, not at goal ([facility]) 1 TABLET DAILY 0 0 08/23/2008 [...] stage 3a or 3b CKD ([facility]) Tests blood sugar 2 times daily as directed. Dx E11.9 pt is on insulin 60 Strip 5 01/19/2021 Active PROLOR BiotechTouch UltraSoft LancetsIndications :Type 2 diabetes mellitus with stage 3 chronic kidney disease, with long-term current use of insulin, unspecified whether stage 3a or 3b CKD ([facility]) Use to test glucose up to 2 times daily, as directed. Diagnosis E11.9 pt is on insulin 60 Each 5 01/19/2021 Active Insulin Syringe-Needle U-100 30G X 1/2" 0.5 MLIndications:Type 2 diabetes mellitus with stage 3a chronic kidney disease, with long-term current use of insulin ([facility]) USE TWICE DAILY WITH INSULIN, DX [...] the morning. 30 Tablet 5 07/09/2022 Active Ventolin HFA 108 (90 Base) MCG/ACT [...] whether stage 3a or 3b CKD (HCC) Take 1 Tablet by mouth in the morning. 90 Tablet 1 03/22/2024 Active PROLOR BiotechTouch Ultra 2 w/Device KitIndications:Typ e 2 diabetes mellitus with stage 3 chronic kidney disease, with long-term current use of insulin, unspecified whether stage 3a or 3b CKD ([facility]) Use as directed to check blood sugar level once daily; dx code: E11.9 1 Kit 06/22/2024 Active NovoLOG Mix 70/30 FlexPen (70-30) 100 UNIT/ML Suspension Pen-injector (Insulin Aspart Prot & Aspart) 74 units before breakfast and 64 units before supper 15 mL 3 06/28/2024 Active BD Pen Needle Gissell U/F 32G X 4 MM (Insulin Pen Needle) Use to inject insulin twice a day 200 Each 3 06/28/2024 Active Dexcom G7 Support Services Tech Device Use as directed. 1 Each 06/29/2024 Active Dexcom G7 Sensor Use as directed every 10 days. 3 Each 5 06/29/2024 Active Eliquis 5 MG Oral TabletIndications: A-fib (HCC) Take 1 Tablet by mouth in the morning and 1 Tablet before bedtime. 180 Tablet 1 07/23/2024 Active Omeprazole 20 MG Oral Capsule Delayed Release (PriLOSEC)Indicati ons:Gastroesophage al reflux disease without esophagitis Take 1 Capsule by mouth in the morning. 90 Capsule 3 07/29/2024 Active Omeprazole 20 MG Oral Capsule Delayed Release (PriLOSEC)Indicati ons:Gastroesophage al reflux disease without esophagitis Take 1 Capsule by mouth in the morning. 90 Capsule 3 07/29/2023 4 Discontinue d(Refill) documented as of this encounter (statuses as of 07/29/2024) Active Problems Problem Noted Date Diagnosed Date A-fib 07/21/2024 Abrasion, leg w/o infection 06/23/2024 Primary open-angle [...] as of this encounter (statuses as of 07/29/2024) Resolved Problems Problem Noted Date Diagnosed Date [...] as of this encounter (statuses as of 07/29/2024) Immunizations Name Administration Dates Next Due COVID-19 mRNA, LNP-s, No Pre serve, 2-Dose Series (Moderna) 03/26/2021,02/26/2021 COVID-19, mRNA, LNP-s, PF, B ooster, 100mcg/0.5mg (Moderna) 12/08/2021 Covid-19, Mrna, Lnp-s, Pf, B ivalent, 30 Mcg, IM, 12 yrs and above ([employer]) 08/05/2022 Pneumococcal Conjugate Vacc, 13 Valent (Prevnar) 11/02/2014 Pneumococcal Polysaccharide PPV23 (Pneumovax) 10/07/2016,08/19/2008 Seasonal Influenza Vac., MDV , IM, 0.5 mL (Fluzone) 07/28/2014,07/02/2013,08/26/2012,10/16,09/27/2010,07/11/2009,07/20/2008 Seasonal Influenza, High Dos e, Trivalent, PF, IM (Fluzone HD) 08/11/2019 Seasonal Influenza, PF, 6 M & above, IM , (FluLaval or Fluzone) 08/11/2019,09/25/2018,09/24/2017 Seasonal Influenza, Quadriva lent Hd (Fluzone Hd) 07/30/2023,12/05/2021 Seasonal Influenza, Quadriva lent Hd, 65+ Yrs 08/05/2022 Seasonal Influenza, Quadriva lent, No Preserve, IM 10/07/2016,07/25/2015 Seasonal Influenza, Quadriva lent, No Preserve, Mdck 09/28/2020 TDAP (age 10 and older)(Boostrix) 05/28/2019 Varicella [...] encounter Miscellaneous Notes * Telephone Encounter - Swati Mendieta DO - 07/29/2024 7:51 PM EDTSigned Prescriptions: Disp Refills Omeprazole 20 MG Oral Capsule Delayed Rele*90 Cap*3 Sig: Take 1 Capsule by mouth in the morning. Authorizing Provider: SWATI MENDIETA * Telephone Encounter - Swati Arrington [facility] - 07/29/2024 3:21 PM EDT Pending Prescriptions: Disp Refills Omeprazole 20 MG Oral Capsule Delayed Rele*90 Cap*3 Sig: Take 1 Capsule by mouth in the morning. * Telephone Encounter - Swati Arrington [facility] - 07/29/2024 3:21 PM EDT Medication note yet prescribed by current PCP- Please approve if appropriate. Thank You Swati Arrington, PharmD Clinical Pharmacist [facility] [phone] / [phone] 07/29/2024, 3:21 PM * Telephone Encounter - Courtney Salamanca, travograph operator - 07/28/2024 8:50 AM EDT Did you pend patient's preferred pharmacy and medication before forwarding?yes Pharmacy: [id number] Pending Prescriptions: Disp Refills Omeprazole 20 MG Oral Capsule Delayed Rel*90 Cap*3 Sig: Take 1 Capsule by mouth in the morning. Last Visit: 06/23/2024 (in office), Visit date not found (telemedicine) Next Visit: 01/07/2025 If no future appointments scheduled, and last appointment is greater than a year ago, please schedule patient for a follow-up appointment Last date the medication was ordered: 07/29/2023 Is this request for a controlled substance?No Urine Drug Screen:No results found for this or any previous visit. Patient Phone Numbers Labs: Lab Results Component Value Date/Time CREAT 0.9 05/26/2024 07:59 AM CREAT 0.9 05/26/2020 07:58 AM CREAT 0.7 07/26/1996 08:50 AM POTASSIUM 4.3 05/26/2024 07:59 AM POTASSIUM 4.0 05/26/2020 07:58 AM POTASSIUM 4.0 07/26/1996 08:50 AM TSH 2.26 08/20/2008 08:10 AM LDL 85 05/26/2024 07:59 AM LDL 50 08/20/2019 08:07 AM LDL NOT APPLICABLE 08/20/2019 08:07 AM LDL 99. 07/26/1996 08:50 AM ALT 21 05/26/2024 07:59 AM ALT 13 05/26/2020 07:58 AM HGBA1C 6.9 (H) 05/26/2024 07:59 AM HGBA1C 7.6 (H) 05/26/2020 07:58 AM documented in this encounter Plan of Treatment Upcoming Encounters Date Type Department Care Team (Late st Contact Info) Description 01/07/2025 9:30 AM EDT Office Visit Family Medicine [address] [place] [phone] Swati Mendieta[address] [place] [address] Health Maintenance Due Date Last Done Comments [...] as of this encounter Visit Diagnoses Diagnosis Gastroesophageal reflux disease without esophagitis Esophageal reflux documented in this encounter Care Teams Experimental Psychologist Relationship Specialty Start Date End Date Swati Mendieta DO [address] [place] [address] [place] [phone] PCP - General Internal Medicine 03/08/19 documented as of this encounter
--- OUTSIDE RECORDS SUMMARY | 2024-08-07 08:35 | External Medical Summary | Summary of Care ---
Demographics Address [address] [facility] [place] [address] Home Phone Mobile Phone Preferred Language Martiniquais Marital Status Unknown Jewish Affiliation Unknown Race White Ethnic Group Not or Lati no Author Name Unknown Organization [facility] Address [address] [place] [address] Phone [phone] Care Team Providers Care Anthropology Professor Name Role Phone Emy Hawk DO Primary Care Provider [phone] Encounter Details Date Type Department Care Team (Late st Contact Info) Description 07/21/2024 Result Scan Unspecified Department <No scans attached> Allergies Active Allergy Reactions Criticality Noted Date Comments Amoxicillin Rash 04/18/2003 rash Metformin Diarrhea Medium 07/23/2013 documented as of this encounter (statuses as of 07/23/2024) Medications Medication Sig Dispensed Refills Start Date End Date Status ASPIRIN 81 MG PO TABSIndications:DM type 2, not at goal ([facility]) 1 TABLET DAILY 0 0 08/23/2008 Active Cholecalciferol (VITAMIN D3) 2000 UNITS CapsuleIndications:V itamin D deficiency TAKE ONE CAPSULE BY MOUTH DAILY. 90 Cap 1 02/17/2017 Active Latanoprost 0.005 % EMUL Instill into eye. Instill 1 drop in each eye at bedtime Active OneTouch Ultra Blue In Vitro Strip (Glucose Blood)Indications:Ty pe 2 diabetes mellitus with stage 3 chronic kidney disease, with long-term current use of insulin, unspecified whether stage 3a or 3b CKD ([facility]) Tests blood sugar 2 times daily as directed. Dx E11.9 pt is on insulin 60 Strip 5 01/19/2021 Active OneTouch UltraSoft LancetsIndications:T ype 2 diabetes mellitus with stage 3 chronic kidney disease, with long-term current use of insulin, unspecified whether stage 3a or 3b CKD ([facility]) Use to test glucose up to 2 times daily, as directed. Diagnosis E11.9 pt is on insulin 60 Each 5 01/19/2021 Active Insulin Syringe-Needle U-100 30G X 1/2" 0.5 MLIndications:Type 2 diabetes mellitus with stage 3a chronic kidney disease, with long-term current use of insulin (HCC) USE TWICE DAILY WITH INSULIN, DX : E11.9 200 Each 03/04/2022 Active Lovastatin 40 MG Oral TabletIndications:Dy slipidemia, goal LDL below 100 TAKE 1 TABLET BY MOUTH EVERYDAY AT BEDTIME 30 Tablet 11 07/01/2022 Active Lisinopril-hydroCHLO ROthiazide 20-12.5 MG Oral TabletIndications:Es sential hypertension with goal blood pressure less than 140/90 Take by mouth 1 Tablet in the morning. 30 Tablet 5 07/09/2022 Active Omeprazole 20 MG Oral Capsule Delayed Release (PriLOSEC)Indication s:Gastroesophageal reflux disease without esophagitis Take 1 Capsule [...] Oral Tablet Extended Release 24 Hour (toPROL XL)Indications:Hyper tensive kidney disease with stage 3 chronic kidney disease, unspecified whether stage 3a or 3b CKD (HCC) Take 1 Tablet by mouth in the morning. 90 Tablet 1 03/22/2024 Active [employer] Ultra 2 w/Device KitIndications:Type 2 diabetes mellitus with stage 3 chronic kidney disease, with long-term current use of insulin, unspecified whether stage 3a or 3b CKD (HCC) Use as directed to check blood sugar level once daily; dx code: E11.9 1 Kit 06/22/2024 Active Eliquis 5 MG Oral Tablet Take 1 Tablet by mouth in the morning and 1 Tablet before bedtime. 06/18/2024 Active NovoLOG Mix 70/30 FlexPen (70-30) 100 UNIT/ML Suspension Pen-injector (Insulin Aspart Prot & Aspart) 74 units before breakfast and 64 units before supper 15 mL 3 06/28/2024 Active BD Pen Needle Gissell U/F 32G X 4 MM (Insulin Pen Needle) Use to inject insulin twice a day 200 Each 3 06/28/2024 Active Dexcom G7 Seafood Processor Device Use as directed. 1 Each 06/29/2024 Active Dexcom G7 Sensor Use as directed every 10 days. 3 Each 5 06/29/2024 Active documented as of this encounter (statuses as of 07/23/2024) Active Problems Problem Noted Date Diagnosed Date [...] as of this encounter (statuses as of 07/23/2024) Resolved Problems Problem Noted Date Diagnosed Date [...] as of this encounter (statuses as of 07/23/2024) Immunizations Name Administration Dates Next Due COVID-19 [...] on file documented as of this encounter Plan of Treatment Upcoming Encounters Date Type Department Care Team (Late st Contact Info) Description 01/07/2025 9:30 AM EDT Office Visit Family Medicine [address] [phone] [place] [phone] Health Maintenance Due Date Last Done Comments [...] Not on filedocumented as of this encounter Procedures Procedure Name Priority Date/Time Associated Diagnosis Comments RADIOLOGY SCANNED RESULT 07/21/2024 RADIOLOGY SCANNED RESULT 07/21/2024 documented in this encounter Results * RADIOLOGY SCANNED RESULT (07/21/2024) 07/21/2024 No Physician Data Unknown DIAGNOSTIC RAD IOLOGY SERVICES * RADIOLOGY SCANNED RESULT (07/21/2024) 07/21/2024 No Physician Data Unknown DIAGNOSTIC RAD IOLOGY SERVICES documented in this encounter Care Teams Anthropology Professor Relationship Specialty Start Date End Date Emy Hawk DO [address] [place] [address] [place] [phone] PCP - General Internal Medicine 03/08/19 documented as of this encounter
--- OUTSIDE RECORDS SUMMARY | 2024-08-07 08:35 | External Medical Summary | Summary of Care ---
Demographics Address [address] [place] [address] Home Phone Mobile Phone Preferred Language Turkmen Marital Status Unknown Gnosticist Affiliation Unknown Race White Ethnic Group Not or Lati no Author Name Unknown Organization [facility] Address [address] [facility] [place] [address] Phone [phone] Care Team Providers Care Orthodontic Treatment Coordinator Name Role Phone Eym Hawk DO Primary Care Provider Encounter Details Date Type Department Care Team (Late st Contact Info) Description 06/17/2024 Orders Only [facility] Medicine [address] [place] [address] Emy Hawk DO [address] [place] [address] [place] [address] Allergies Active Allergy Reactions Criticality Noted Date Comments Amoxicillin Rash 04/18/2003 rash Metformin Diarrhea Medium 07/23/2013 documented as of this encounter (statuses as of 06/17/2024) Medications Medication Sig Dispensed Refills Start Date End Date Status ASPIRIN 81 MG PO TABSIndications:DM type 2, not at goal ([facility]) 1 TABLET DAILY 0 0 08/23/2008 [...] unspecified whether stage 3a or 3b CKD ([facility]) Tests blood sugar 2 times daily as directed. Dx E11.9 pt is on insulin 60 Strip 5 01/19/2021 Active OneTouch UltraSoft LancetsIndications :Type 2 diabetes mellitus with stage 3 chronic kidney disease, with long-term current use of insulin, unspecified whether stage 3a or 3b CKD (HCC) Use to test glucose up to 2 times daily, as directed. Diagnosis E11.9 pt is on insulin 60 Each 5 01/19/2021 Active Insulin Syringe-Needle U-100 30G X 1/2" 0.5 MLIndications:Type 2 diabetes mellitus with stage 3a chronic kidney disease, with long-term current use of insulin ([facility]) USE TWICE DAILY WITH INSULIN, DX [...] the morning. 30 Tablet 5 07/09/2022 Active [employer] Ultra 2 w/Device KitIndications:Typ e 2 diabetes mellitus with stage 3 chronic kidney disease, with long-term current use of insulin, unspecified whether stage 3a or 3b CKD (HCC) Use as directed to check blood sugar level once daily; dx code: E11.9 1 Each 02/20/2023 Active Omeprazole 20 MG Oral Capsule Delayed [...] A1c goal of less than 8.0% (HCC) INJECT 74 UNITS SUBCUTANEOUSLY IN THE MORNING AND 64 UNITS SUBCUTANEOUSLY BEFORE SUPPER 50 mL 1 05/19/2024 Active documented as of this encounter (statuses as of 06/17/2024) Active Problems Problem Noted Date Diagnosed Date [...] as of this encounter (statuses as of 06/17/2024) Resolved Problems Problem Noted Date Diagnosed Date [...] Protocol #27. Diabetes mellitus with background retinopathy 02/25/20 12 05/31/2020 Overview: ICD-10 update of inactive term Kidney [...] 09/01/200201/2008 Lateral epicondylitis 09/01/20022007 FEM STRESS INCONTINENCE 01/08/2002 0803/2019 PURE HYPERCHOLESTEROLEM 12/16/200109/19 Overview: Per Lipid Taxonomy. [...] as of this encounter (statuses as of 06/17/2024) Immunizations Name Administration Dates Next Due COVID-19 mRNA, LNP-s, No Pre serve, 2-Dose Series (Moderna) 03/26/2021,02/26/2021 COVID-19, mRNA, LNP-s, PF, B ooster, 100mcg/0.5mg (Moderna) 12/08/2021 Covid-19, Mrna, Lnp-s, Pf, B ivalent, 30 Mcg, IM, 12 yrs and above ([employer]izer) 08/05/2022 Pneumococcal Conjugate Vacc, 13 Valent (Prevnar) 11/02/2014 Pneumococcal Polysaccharide PPV23 (Pneumovax) 10/07/2016,08/19/2008 Seasonal Influenza, PF, 6 M & above, IM , (FluLaval or Fluzone) 08/11/2019,09/25/2018,09/24/2017 Seasonal Influenza, Quadriva lent Hd (Fluzone Hd) 07/30/2023,12/05/2021 Seasonal Influenza, Quadriva lent Hd, 65+ Yrs 08/05/2022 Seasonal Influenza, Quadriva lent, No Preserve, IM 10/07/2016,07/25/2015 Seasonal Influenza, Quadriva lent, No Preserve, Mdck 09/28/2020 Seasonal Influenza, Split, I IV3, With Preserve, Inj 07/28/2014,07/02/2013,08/26/2012,10/16,09/27/2010,07/11/2009,07/20/2008 Seasonal Influenza, Trivalen t, High Dose, No Preserve, IM 08/11/2019 TDAP (age 10 and older)(Boostrix) 05/28/2019 Varicella [...] 9:30 AM EDT Office Visit Family Medicine [address] [phone] Emy Hawk[address] [place] [phone] Health Maintenance Due Date Last Done Comments Zoster Vaccines (2 of 3) 09/14/2012 07/20/2012 Adult Wellness Visit 05/17/2016 05/17/2015 Depression Screening 03/04/2023 03/04/2022 COVID-19 Vaccine ( season) 2023 08/05/2022, 08/05/2022, 12/08/2021, Additional history exists Influenza [...] Procedure Name Priority Date/Time Associated Diagnosis Comments XR CHEST 1 VIEW Routine 06/16/2024 documented in this encounter Results * XR CHEST 1 VIEW (06/16/2024) Anatomical Region Laterality Modality Chest Other 06/16/2024 History Per Patient RADIOLOGY (RAD GENER AL) documented in this encounter Care Teams Orthodontic Treatment Coordinator Relationship Specialty Start Date End Date Emy Hawk DO [address] [place] [address] [place] [address] PCP - General Internal Medicine 03/08/19 documented as of this encounter
--- OUTSIDE RECORDS SUMMARY | 2024-08-07 08:35 | External Medical Summary | Summary of Care ---
Demographics Address [address] [place] [address] Home Phone Mobile Phone Preferred Language Nicaraguan Marital Status Unknown Confucianism Affiliation Unknown Race White Ethnic Group Not or Lati no Author Name Unknown Organization [facility] Address [address] [facility] [address] Phone [phone] Care Team Providers Care Washing Machine Loader Name Role Phone Emy Hawk Primary Care Provider Reason for Visit * Reason Comments Outpatient Testing Encounter Details Date Type Department Care Team (Late st Contact Info) Description 05/26/2024 8:00 AM EDT Laboratory Laboratory [address] [place] [phone] [facility] [address] [place] [address] Hyperlipidemia with target LDL less than 70; Type 2 diabetes mellitus with hemoglobin A1c goal of less than 8.0% ([facility]); [facility] current use of therapeutic drug Allergies Active Allergy Reactions Criticality Noted Date Comments Amoxicillin Rash 04/18/2003 rash Metformin Diarrhea Medium 07/23/2013 documented as of this encounter (statuses as of 05/26/2024) Medications Medication Sig Dispensed Refills Start Date End Date Status ASPIRIN 81 MG PO TABSIndications:DM type 2, not at goal ([facility]) 1 TABLET DAILY 0 0 08/23/2008 Active [...] whether stage 3a or 3b CKD (HCC) Tests blood sugar 2 times daily as [...] the morning. 30 Tablet 5 07/09/2022 Active [employer] Ultra 2 w/Device KitIndications:Typ e 2 diabetes [...] hemoglobin A1c goal of less than 8.0% ([facility]) INJECT 74 UNITS SUBCUTANEOUSLY IN THE MORNING AND 64 UNITS SUBCUTANEOUSLY BEFORE SUPPER 50 mL 1 05/19/2024 Active documented as of this encounter (statuses as of 05/26/2024) Active Problems Problem Noted Date Diagnosed Date [...] as of this encounter (statuses as of 05/26/2024) Resolved Problems Problem Noted Date Diagnosed Date [...] as of this encounter (statuses as of 05/26/2024) Immunizations Name Administration Dates Next Due COVID-19 [...] 9:30 AM EDT Office Visit Family Medicine [address] [phone] [place] [address] Pending Results Name Type Priority Associated Diagnoses Date /Time LIPID PANEL WITH DIRECT LDL IF TG IS HIGH Lab Routine Hyperlipidemia with target LDL less than 70 05/26/2024 7:59 AM EDT COMPREHENSIVE METABOLIC PANEL Lab Routine Type 2 diabetes mellitus with hemoglobin A1c goal of less than 8.0% (HCC) Hyperlipidemia with target LDL less than 70 05/26/2024 7:59 AM EDT HEMOGLOBIN A1C Lab Routine Type 2 diabetes mellitus with hemoglobin A1c goal of less than 8.0% (HCC) 05/26/2024 7:59 AM EDT VITAMIN B12 Lab Routine [facility] current use of therapeutic drug 05/26/2024 7:59 AM EDT MAGNESIUM Lab Routine [facility] current use of therapeutic drug 05/26/2024 7:59 AM EDT ALBUMIN / CREATININE RATIO, URINE Lab Routine Type 2 diabetes mellitus with hemoglobin A1c goal of less than 8.0% ([facility]) 05/26/2024 7:59 AM EDT Health Maintenance Due Date Last Done Comments Zoster Vaccines (2 of 3) 09/14/2012 07/20/2012 Adult Wellness Visit 05/17/2016 05/17/2015 Depression Screening 03/04/2023 03/04/2022 COVID-19 Vaccine ( season) 2023 08/05/2022, 08/05/2022, 12/08/2021, Additional history exists HbA1c 11/29/2023 05/29/2023, 11/20, 09/02/2022, Additional history exists GFR 12/02/2023 12/02/2022, 05/20, 11/27/2021, Additional history exists Albumin/Creatinine Ratio 05/29/2024 023, 06/05/2022, 05/25/2021, Additional history exists Influenza Vaccine (FLU shot) (#1) 2024 07/30/2023, 07/30/2023, 08/05/2022, Additional history exists Diabetic Eye Exam 05/03/2025 05/03/2024, , 02/19/2024, Additional history exists Diabetic Foot Exam 05/25/2025 05/25/2024, 0 12/06/2022, 03/04/2022, Additional history exists DXA Scan 12/09/2026 12/09/2022, 11/21, 07/27/2015, Additional history exists DTaP,Tdap,and Td Vaccines (2 - Td or Tdap) 05/28/2029 [...] as of this encounter Visit Diagnoses Diagnosis Hyperlipidemia with target LDL less than 70 Other and unspecified hyperlipidemia Type 2 diabetes mellitus with hemoglobin A1c goal of less than 8.0% (HCC) [facility] current use of therapeutic drug documented in this encounter Care Teams Washing Machine Loader Relationship Specialty Start Date End Date Emy Hawk DO [address] [place] [address] [place] [phone] PCP - General Internal Medicine 03/08/19 documented as of this encounter
--- OUTSIDE RECORDS SUMMARY | 2024-08-07 08:35 | External Medical Summary | Summary of Care ---
Demographics Address [address] [place] [address] Home Phone Mobile Phone Preferred Language Egyptian Marital Status Unknown Baptism Affiliation Unknown Race White Ethnic Group Not or Lati no Author Name Unknown Organization [facility] Address [address] [facility] [place] [address] Phone [phone] Care Team Providers Care Gristmiller Name Role Phone Emy Hawk DO Primary Care Provider Reason for Visit * Reason Onset Date Comments Med Request 07/19/2024 Encounter Details Date Type Department Care Team (Late st Contact Info) Description 07/19/2024 Telephone Family Medicine [address] [phone] Emy Hawk DO [address] [place] [address] [place] [phone] Med Request Allergies Active Allergy Reactions Criticality Noted Date Comments Amoxicillin Rash 04/18/2003 rash Metformin Diarrhea Medium 07/23/2013 documented as of this encounter (statuses as of 07/23/2024) Medications Medication Sig Dispensed Refills Start Date End Date Status ASPIRIN 81 MG PO TABSIndications:DM type 2, not at goal ([facility]) 1 TABLET DAILY 0 0 08/23/2008 Active [...] whether stage 3a or 3b CKD ([facility]) Tests blood sugar 2 times daily as [...] the morning. 90 Tablet 1 03/22/2024 Active OneTouch Ultra 2 w/Device KitIndications:Typ e [...] 200 Each 3 06/28/2024 Active Dexcom G7 Animal Nutritionist Device Use as directed. 1 Each 06/29/2024 Active Dexcom G7 Sensor Use as directed every 10 days. 3 Each 5 06/29/2024 Active Eliquis 5 MG Oral TabletIndications: A-fib (HCC) Take 1 Tablet by mouth in the morning and 1 Tablet before bedtime. 180 Tablet 1 07/23/2024 Active Eliquis 5 MG Oral Tablet Take 1 Tablet by mouth in the morning and 1 Tablet before bedtime. 06/18/2024 Discontinue d(Refill) documented as of this encounter [...] encounter Miscellaneous Notes * Telephone Encounter - Debbie Chance, family protection specialist - 07/19/2024 11:05 AM EDT Pt calling requesting the following medication below that is listed as "Historical". The following information was provided: Medication Name: Eliquis 5 MG Oral Tablet Directions: take 1 tab twice a day Preferred Quantity: 90 ds Previous Prescriber: Liliana Pena Preferred Pharmacy: [facility]pharmacy #[id number] [address]- [place] Please review and approve if appropriate. Thanks, Debbie Chance Explosives Engineer [facility] 07/19/2024,11:05 AM documented in this encounter Plan of Treatment Upcoming Encounters Date Type Department Care Team (Late st Contact Info) Description 01/07/2025 9:30 AM EDT Office Visit Family Medicine [address] [place] [phone] [place] [address] Health Maintenance Due Date Last Done Comments [...] as of this encounter Visit Diagnoses Diagnosis A-fib (HCC)- Primary Atrial fibrillation documented in this encounter Care Teams Gristmiller Relationship Specialty Start Date End Date Emy Hawk DO [address] [place] [address] [place] [address] PCP - General Internal Medicine 03/08/19 documented as of this encounter
--- OUTSIDE RECORDS SUMMARY | 2024-08-07 08:35 | External Medical Summary | Summary of Care ---
Demographics Address [address] [place] [address] Home Phone Mobile Phone Preferred Language Guatemalan Marital Status Unknown Baptism Affiliation Unknown Race White Ethnic Group Not or Lati no Author Name Unknown Organization [facility] Address [address] [facility] [place] [address] Phone [phone] Care Team Providers Care Interlacer Name Role Phone Emy Hawk DO Primary Care Provider Reason for Visit * Reason Onset Date Comments Appointment 06/23/2024 Ortho/Nartatez Encounter Details Date Type Department Care Team (Late st Contact Info) Description 06/23/2024 Telephone Family Medicine [address] [phone] Emy Hawk DO [address] [place] [address] [place] [phone] Appointment (Ortho/Nartatez ) Allergies Active Allergy Reactions Criticality Noted Date Comments Amoxicillin Rash 04/18/2003 rash Metformin Diarrhea Medium 07/23/2013 documented as of this encounter (statuses as of 06/23/2024) Medications Medication Sig Dispensed Refills Start Date End Date Status ASPIRIN 81 MG PO TABSIndications:DM type 2, not at goal ([facility]) 1 TABLET DAILY 0 0 08/23/2008 Active [...] 3b CKD ([facility]) Tests blood sugar 2 times daily as directed. Dx E11.9 pt is on insulin 60 Strip 5 01/19/2021 Active OneTouch UltraSoft LancetsIndications :Type 2 diabetes mellitus with stage 3 chronic kidney disease, with long-term current use of insulin, unspecified whether stage 3a or 3b CKD ([facility]) Use to test glucose up to 2 times daily, as directed. Diagnosis E11.9 pt is on insulin 60 Each 5 01/19/2021 Active Insulin Syringe-Needle U-100 30G X 1/2" 0.5 MLIndications:Type 2 diabetes mellitus with stage 3a chronic kidney disease, with long-term current use of insulin ([facility]) USE TWICE DAILY WITH INSULIN, DX : [...] 3b CKD ([facility]) Take 1 Tablet by mouth in the morning. 90 Tablet 1 03/22/2024 Active Insulin Aspart Prot & Aspart (70-30) 100 UNIT/ML Subcutaneous Suspension (NovoLOG Mix 70/30)Indications: Type 2 diabetes mellitus with hemoglobin A1c goal of less than 8.0% ([facility]) INJECT 74 UNITS SUBCUTANEOUSLY IN THE MORNING [...] 30 Mcg, IM, 12 yrs and above ([employer]) 08/05/2022 Pneumococcal Conjugate Vacc, 13 Valent (Prevnar) [...] 9:30 AM EDT Office Visit Family Medicine [address] [place] [phone] Emy Hawk [address] [place] [address] Health Maintenance Due Date Last Done Comments [...] filedocumented as of this encounter Care Teams Interlacer Relationship Specialty Start Date End Date Emy Hawk DO [address] [place] [address] [place] [phone] PCP - General Internal Medicine 5/20/19 documented as of this encounter
--- OUTSIDE RECORDS SUMMARY | 2024-08-07 08:35 | External Medical Summary | Summary of Care ---
Demographics Address [address] [place] [address] Home Phone Mobile Phone Preferred Language British Marital Status Unknown Alevism Affiliation Unknown Race White Ethnic Group Not or Lati no Author Name Unknown Organization [facility] Address [address] [place] [facility] [facility] [place] [address] Phone [phone] Care Team Providers Care Security Messenger Name Role Phone Emy Hawk Primary Care Provider [phone] Encounter Details Date Type Department Care Team (Late st Contact Info) Description 06/16/2024 Result Scan Unspecified Department <No scans attached> Allergies Active Allergy Reactions Criticality Noted Date Comments Amoxicillin Rash 04/18/2003 rash Metformin Diarrhea Medium 07/23/2013 documented as of this encounter (statuses as of 06/17/2024) Medications Medication Sig Dispensed Refills Start Date End Date Status ASPIRIN 81 MG PO TABSIndications:DM type 2, not at goal ([facility]) 1 TABLET DAILY 0 0 08/23/2008 Active [...] unspecified whether stage 3a or 3b CKD ([facility]) Tests blood sugar 2 times daily as directed. Dx E11.9 pt is on insulin 60 Strip 5 01/19/2021 Active OneTouch UltraSoft LancetsIndications :Type 2 diabetes mellitus with stage 3 chronic kidney disease, with long-term current use of insulin, unspecified whether stage 3a or 3b CKD ([facility]) Use to test glucose up to 2 times daily, as directed. Diagnosis E11.9 pt is on insulin 60 Each 5 01/19/2021 Active Insulin Syringe-Needle U-100 30G X 1/2" 0.5 MLIndications:Type 2 diabetes mellitus with stage 3a chronic kidney disease, with long-term current use of insulin ([facility]) USE TWICE DAILY WITH INSULIN, DX : E11.9 200 Each 03/04/2022 Active Lovastatin 40 MG Oral TabletIndications: Dyslipidemia, goal LDL below 100 TAKE 1 TABLET BY MOUTH EVERYDAY AT BEDTIME 30 Tablet 11 07/01/2022 Active Lisinopril-hydroCH LOROthiazide 20-12.5 MG Oral TabletIndications: Essential hypertension with goal blood pressure less than 140/90 Take by mouth 1 Tablet in the morning. 30 Tablet 5 07/09/2022 Active OneTouch Ultra 2 w/Device KitIndications:Typ e 2 diabetes mellitus with stage 3 chronic kidney disease, with long-term current use of insulin, unspecified whether stage 3a or 3b CKD ([facility]) Use as directed to check blood sugar [...] unspecified whether stage 3a or 3b CKD ([facility]) Take 1 Tablet by mouth in the morning. 90 Tablet 1 03/22/2024 Active Insulin Aspart Prot & Aspart (70-30) 100 UNIT/ML Subcutaneous Suspension (NovoLOG Mix 70/30)Indications: Type 2 diabetes mellitus with hemoglobin A1c goal of less than 8.0% ([facility]) INJECT 74 UNITS SUBCUTANEOUSLY IN THE MORNING [...] Lateral epicondylitis 09/01/20022007 FEM STRESS INCONTINENCE 01/08/2002 080 03/2019 PURE HYPERCHOLESTEROLEM 12/16/200109/19 Overview: Per Lipid Taxonomy. [...] 9:30 AM EDT Office Visit Family Medicine [address] [phone] [place] [address] Health Maintenance Due [...] 12/06/2022, 03/04/2022, Additional history exists Albumin/Creatinine Ratio 05/26/20252 024, 05/29/2023, 06/05/2022, Additional history exists GFR [...] Date/Time Associated Diagnosis Comments RADIOLOGY SCANNED RESULT 06/16/2024 RADIOLOGY SCANNED RESULT 06/16/2024 RADIOLOGY SCANNED RESULT 06/16/2024 RADIOLOGY SCANNED RESULT 06/15/2024 RADIOLOGY SCANNED RESULT 06/15/2024 RADIOLOGY SCANNED RESULT 06/15/2024 documented in this encounter Results * RADIOLOGY SCANNED RESULT (06/16/2024) 06/16/2024 No Physician Data Unknown [facility] RAD [facility]OLOGY [facility] * RADIOLOGY SCANNED RESULT (06/16/2024) 06/16/2024 No Physician Data Unknown [facility]NO[facility] RAD [facility] * RADIOLOGY SCANNED RESULT (06/16/2024) 06/16/2024 No Physician Data Unknown [facility]NOST[facility] RAD [facility] * RADIOLOGY SCANNED RESULT (06/15/2024) 06/15/2024 No Physician Data Unknown [facility] RAD [facility] * RADIOLOGY SCANNED RESULT (06/15/2024) 06/15/2024 No Physician Data Unknown [facility] * RADIOLOGY SCANNED RESULT (06/15/2024) 06/15/2024 No Physician Data Unknown [facility] documented in this encounter Care Teams Security Messenger Relationship Specialty Start Date End Date Emy Hawk DO [address] [place] [address] [place] [id number] PCP - General Internal Medicine 03/08/19 documented as of this encounter
--- OUTSIDE RECORDS SUMMARY | 2024-08-07 08:35 | External Medical Summary | Summary of Care ---
Demographics Address [address] [place] [address] Home Phone Mobile Phone Preferred Language Slovak Marital Status Unknown Anabaptism Affiliation Unknown Race White Ethnic Group Not or Lati no Author Name Unknown Organization [facility] Address [address] [facility] [place] [address] Phone [phone] Care Team Providers Care Lamps Tester And Inspector Name Role Phone Emy Hawk DO Primary Care Provider Reason for Visit * Reason Onset Date Comments Med Request 06/28/2024 Encounter Details Date Type Department Care Team (Late st Contact Info) Description 06/28/2024 Telephone Family Medicine [address] [phone] Emy Hawk DO [address] [place] [address] [place] [address] Med Request Allergies Active Allergy Reactions Criticality Noted Date Comments Amoxicillin Rash 04/18/2003 rash Metformin Diarrhea Medium 07/23/2013 documented as of this encounter (statuses as of 07/07/2024) Medications Medication Sig Dispensed Refills Start Date End Date Status ASPIRIN 81 MG PO TABSIndications: DM type 2, not at goal ([facility]) 1 TABLET DAILY 0 0 8 Active Cholecalciferol (VITAMIN D3) 2000 UNITS CapsuleIndicatio ns:Vitamin D deficiency TAKE ONE CAPSULE BY MOUTH DAILY. 90 Cap 1 7 Active Latanoprost 0.005 % EMUL Instill into eye. Instill 1 drop in each eye at bedtime Active OneTouch Ultra Blue In Vitro Strip (Glucose Blood)Indication s:Type 2 diabetes mellitus with stage 3 chronic kidney disease, with long-term current use of insulin, unspecified whether stage 3a or 3b CKD ([facility]) Tests blood sugar 2 times daily as directed. Dx E11.9 pt is on insulin 60 Strip 5 1 Active OneTouch UltraSoft LancetsIndicatio ns:Type 2 diabetes mellitus with stage 3 chronic kidney disease, with long-term current use of insulin, unspecified whether stage 3a or 3b CKD (HCC) Use to test glucose up to 2 times daily, as directed. Diagnosis E11.9 pt is on insulin 60 Each 5 1 Active Insulin Syringe-Needle U-100 30G X 1/2" 0.5 MLIndications:Ty pe 2 diabetes mellitus with stage 3a chronic kidney disease, with long-term current use of insulin ([facility]) USE TWICE DAILY WITH INSULIN, DX : E11.9 200 Each 2 Active Lovastatin 40 MG Oral TabletIndication s:Dyslipidemia, goal LDL below 100 TAKE 1 TABLET BY MOUTH EVERYDAY AT BEDTIME 30 Tablet 11 2 Active Lisinopril-hydro CHLOROthiazide 20-12.5 MG Oral TabletIndication s:Essential hypertension with goal blood pressure less than 140/90 Take by mouth 1 Tablet in the morning. 30 Tablet 5 2 Active Omeprazole 20 MG Oral Capsule Delayed Release (PriLOSEC)Indica tions:Gastroesop hageal reflux disease without esophagitis Take 1 Capsule by mouth in the morning. 90 Capsule 3 3 Active Ventolin HFA 108 (90 Base) MCG/ACT Inhalation Aerosol Solution Inhale 2 Puffs by mouth every 4 hours as needed for Wheezing. 54 g 1 3 Active Vitamin B-12 1000 MCG Oral Tablet (Cyanocobalamin) Take 1 Tablet by mouth in the morning. 90 Tablet 3 4 Active Metoprolol Succinate ER 100 MG Oral Tablet Extended Release 24 Hour (toPROL XL)Indications:H ypertensive kidney disease with stage 3 chronic kidney disease, unspecified whether stage 3a or 3b CKD (HCC) Take 1 Tablet by mouth in the morning. 90 Tablet 1 4 Active OneTouch Ultra 2 w/Device KitIndications:T ype 2 diabetes mellitus with stage 3 chronic kidney disease, with long-term current use of insulin, unspecified whether stage 3a or 3b CKD (HCC) Use as directed to check blood sugar level once daily; dx code: E11.9 1 Kit 4 Active Eliquis 5 MG Oral Tablet Take 1 Tablet by mouth in the morning and 1 Tablet before bedtime. 4 Active NovoLOG Mix 70/30 FlexPen (70-30) 100 UNIT/ML Suspension Pen-injector (Insulin Aspart Prot & Aspart) 74 units before breakfast and 64 units before supper 15 mL 3 4 Active BD Pen Needle Gissell U/F 32G X 4 MM (Insulin Pen Needle) Use to inject insulin twice a day 200 Each 3 4 Active Dexcom G7 Stave Planer Tender Device Use as directed. 1 Each 4 Active Dexcom G7 Sensor Use as directed every 10 days. 3 Each 5 4 Active Insulin Aspart Prot & Aspart (70-30) 100 UNIT/ML Subcutaneous Suspension (NovoLOG Mix 70/30)Indication s:Type 2 diabetes mellitus with hemoglobin A1c goal of less than 8.0% (HCC) INJECT 74 UNITS SUBCUTANEOUSLY IN THE MORNING AND 64 UNITS SUBCUTANEOUSLY BEFORE SUPPER 50 mL 1 4 06/28/20 24 Discontinued documented as of this encounter (statuses as of 07/07/2024) Active Problems Problem Noted Date Diagnosed Date [...] as of this encounter (statuses as of 07/07/2024) Resolved Problems Problem Noted Date Diagnosed Date [...] as of this encounter (statuses as of 07/07/2024) Immunizations Name Administration Dates Next Due COVID-19 [...] encounter Miscellaneous Notes * Telephone Encounter - Britt Matamoros RN - 07/07/2024 2:01 PM EDT We have not gotten any messages from the pharmacy that it was not covered at [facility] * Telephone Encounter - Eym Hawk DO - 06/29/2024 10:23 AM EDT DEXCOM 7 ordered. Does this need to go through [facility]? Notify pt of message below as well. * Telephone Encounter - Emy Hawk DO - 06/28/2024 2:37 PM EDT Please call patient: I spoke with the pharmacist and her insulin does come in a pen form. Since she is well controlled on this regimen, I am going to continue it. I sent the pens and needles to her pharmacy. documented in this encounter Plan of Treatment Upcoming Encounters Date Type Department Care Team (Late st Contact Info) Description 01/07/2025 9:30 AM EDT Office Visit Family Medicine [address] [phone] Emy Hawk DO [address] [place] [address] [place] [address] Health Maintenance Due Date Last Done Comments [...] filedocumented as of this encounter Care Teams Lamps Tester And Inspector Relationship Specialty Start Date End Date Emy Hawk DO [address] [place] [address] [place] [id number] PCP - General Internal Medicine 03/08/19 documented as of this encounter
--- OUTSIDE RECORDS SUMMARY | 2024-08-07 08:35 | External Medical Summary ---
Demographics Address [address] [place] [address] Phone Unavailable Preferred Language Unknown Marital Status Unknown Mu-Ism Affiliation Unknown Race Unknown Ethnic Group Unknown Author Name Unknown Address Unknown Organization [id number]:[facility]ORATORY [facility] - [address] [facility] [address] Laboratory Report Ordering Provider Test Date Status GAYATRI LONGORIA 05/26/2024 07:59:55 Final Observation Date Value Abnormality Reference (Units ) Status HbA1C 05/26/2024 07:59:55 6.9 Above high normal 4. 0-5.6 (%) Final The use of HbA1c to monitor glycemic status is based on normal hemoglobin and HbA composition. This test should not be used in patients with abnormal hemoglobin that affects the half life of the red blood cell or the in vivo glycation rates. Glucose, estimated average 05/26/2024 07:59:55 151 Above high normal <126 (mg/dL) Fin al Performing Location [facility]ORY [facility] [address] [facility] [address]
--- OUTSIDE RECORDS SUMMARY | 2024-08-07 08:35 | External Medical Summary ---
Demographics Address [address] [place] [address] Phone Unavailable Preferred Language Unknown Marital Status Unknown Confucianism Affiliation Unknown Race Unknown Ethnic Group Unknown Author Name Unknown Address Unknown Organization K01:[facility] - [address] [place] [address] Laboratory Report Ordering Provider Test Date Status GAYATRI LONGORIA 05/26/2024 07:59:55 Final Observation Date Value Abnormality Reference (Units ) Status BUN 05/26/2024 07:59:55 17 6-20 (mg/dL) Final Creatinine 05/26/2024 07:59:55 0.9 0.5-1.0 (mg/dL) Final Glomerular filtration rate/1.73 sq M.predicted [Volume Rate/Area] in Serum, Plasma or Blood by Creatinine-based formula (CKD-EPI) 05/26/2024 07:59:55 68 >=60 (mL/min) Final eGFR is calculated based on the CKD-EPI 2020 equation. Sodium 05/26/2024 07:59:55 141 135-146 (m mol/L) Final Potassium 05/26/2024 07:59:55 4.3 3.5-5.1 (m mol/L) Final Cl 05/26/2024 07:59:55 103 98-107 (mm ol/L) Final CO2 05/26/2024 07:59:55 27 22-32 (mmo l/L) Final Anion gap 05/26/2024 07:59:55 11 7-15 (mmol /L) Final Glucose 05/26/2024 07:59:55 146 Above high normal 70 -120 (mg/dL) Final Albumin 05/26/2024 07:59:55 4.1 3.8-5.0 (g /dL) Final AST (Aspartate aminotransferase) 05/26/2024 07:59:55 29 10-35 (U/L) Fin al Alk Phos 05/26/2024 07:59:55 120 35-130 (U/ L) Final Bilirubin, Total 05/26/2024 07:59:55 0.7 <=1 .2 (mg/dL) Final Calcium 05/26/2024 07:59:55 9.7 8.4-10.2 ( mg/dL) Final Protein 05/26/2024 07:59:55 6.6 6.0-8.3 (g /dL) Final ALT (Alanine aminotransferase) 05/26/2024 07:59:55 21 10-35 (U/L) Nnamdi prieto Performing Location [facility] - [address] [facility] [address]
--- OUTSIDE RECORDS SUMMARY | 2024-08-07 08:36 | External Medical Summary | Summary of Care ---
Demographics Address [address] [place] [address] Home Phone Mobile Phone Preferred Language Mozambican Marital Status Unknown Religion Affiliation Unknown Race White Ethnic Group Not or Lati no Author Name Unknown Organization [facility] Address [address] [facility] [place] [address] Phone [phone] Care Team Providers Care Business Technology Teacher Name Role Phone Swati Mendieta DO Primary Care Provider [phone] Reason for Visit * Reason Onset Date Comments Medication Refill 05/19/2024 Encounter Details Date Type Department Care Team (Late st Contact Info) Description 05/19/2024 Refill Family Medicine [address] [place] [address] Swati Mendieta DO [address] [place] [address] [place] [phone] Type 2 diabetes mellitus with hemoglobin A1c goal of less than 8.0% ([facility]) Allergies Active Allergy Reactions Criticality Noted Date Comments Amoxicillin Rash 04/18/2003 rash Metformin Diarrhea Medium 07/23/2013 documented as of this encounter (statuses as of 05/19/2024) Medications Medication Sig Dispensed Refills Start Date End Date Status ASPIRIN 81 MG PO TABSIndications:D M type 2, not at goal ([facility]) 1 TABLET DAILY 0 0 [...] the morning. 30 Tablet 5 07/09/2022 Active [employer]uling Employee Scheduling Software Ultra 2 w/Device KitIndications:Ty pe 2 diabetes [...] BEFORE SUPPER 50 mL 1 05/19/2024 Active Insulin Aspart Prot & Aspart (70-30) 100 UNIT/ML Subcutaneous Suspension (NovoLOG Mix 70/30)Indications :Type 2 diabetes mellitus with hemoglobin A1c goal of less than 8.0% (HCC) INJECT 74 UNITS SUBCUTANEOUSLY IN THE MORNING AND 64 UNITS SUBCUTANEOUSLY BEFORE SUPPER 50 mL 1 03/08/2024 05/19/20 24 Discontinu ed(Refill) documented as of this encounter (statuses as of 05/19/2024) Active Problems Problem Noted Date Diagnosed Date 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 [...] as of this encounter (statuses as of 05/19/2024) Resolved Problems Problem Noted Date Diagnosed Date [...] as of this encounter (statuses as of 05/19/2024) Immunizations Name Administration Dates Next Due COVID-19 [...] Telephone Encounter - Swati Mendieta DO - 05/19/2024 11:58 AM EDTSigned Prescriptions: Disp Refills Insulin Aspart Prot & Aspart (70-30) 100 U*50 mL 1 Sig: INJECT 74 UNITS SUBCUTANEOUSLY IN THE MORNING AND 64 UNITS SUBCUTANEOUSLY BEFORE SUPPER Authorizing Provider: SWATI MENDIETA * Telephone Encounter - Britt Matamoros RN - 05/19/2024 11:27 AM EDTPending Prescriptions: Disp Refills Insulin Aspart Prot & Aspart (70-30) 100 U*50 mL 1 Sig: INJECT 74 UNITS SUBCUTANEOUSLY IN THE MORNING AND 64 UNITS SUBCUTANEOUSLY BEFORE SUPPER * Telephone Encounter - Elena Erazo, KERLINE - 05/19/2024 9:21 AM EDT Did you pend patient's preferred pharmacy and medication before forwarding?yes Pharmacy: [id number] [id number] [facility] Pending Prescriptions: Disp Refills Insulin Aspart Prot & Aspart (70-30) 100 *50 mL 1 Sig: INJECT 74 UNITS SUBCUTANEOUSLY IN THE MORNING AND 64 UNITS SUBCUTANEOUSLY BEFORE SUPPER Last Visit: 07/30/2023 (in office), Visit date not found (telemedicine) Next Visit: 05/25/2024 If no future appointments scheduled, and last appointment is greater than a year ago, please schedule patient for a follow-up appointment Last date the medication was ordered: 03.08.24 Is this request for a controlled substance?No Urine Drug Screen:No results found for this or any previous visit. Patient Phone Numbers Labs: Lab Results Component Value Date/Time CREAT 0.9 12/02/2022 08:11 AM CREAT 0.9 05/26/2020 07:58 AM CREAT 0.7 07/26/1996 08:50 AM POTASSIUM 4.0 12/02/2022 08:11 AM POTASSIUM 4.0 05/26/2020 07:58 AM POTASSIUM 4.0 07/26/1996 08:50 AM TSH 2.26 08/20/2008 08:10 AM LDLCALC 84 12/02/2022 08:11 AM LDLCALC 50 08/20/2019 08:07 AM LDLCALC 99. 07/26/1996 08:50 AM LDLDIRECT 69 11/27/2021 08:02 AM LDLDIRECT NOT APPLICABLE 08/20/2019 08:07 AM ALT 20 12/02/2022 08:11 AM ALT 13 05/26/2020 07:58 AM HGBA1C 7.8 (H) 05/29/2023 08:00 AM HGBA1C 7.6 (H) 05/26/2020 07:58 AM documented in this encounter Plan of Treatment Upcoming Encounters Date Type Department Care Team (Late st Contact Info) Description 05/25/2024 10:30 AM EDT Office Visit Family Medicine [address] [place] [address] [place] [phone] Health Maintenance Due Date Last Done Comments Zoster Vaccines (2 of 3) 09/14/2012 07/20/2012 Depression Screening 03/04/2023 03/04/2022 COVID-19 Vaccine ( season) 2023 08/05/2022, 12/08/2021, 03/26/2021, Additional history exists HbA1c 11/29/2023 05/29/2023, 11/20, 09/02/2022, Additional history exists GFR 12/02/2023 12/02/2022, 05/20, 11/27/2021, Additional history exists Diabetic Foot Exam 12/06/2023 12/06/2022, 0 03/04/2022, 06/01/2021, Additional history exists Albumin/Creatinine Ratio 05/29/20242 023, 06/05/2022, 05/25/2021, Additional history exists Influenza Vaccine (FLU shot) (#1) 2024 07/30/2023, 08/05/2022, 12/05/2021, Additional history exists Diabetic Eye Exam 02/18/2025 02/19/2024, , 02/16/2024, Additional history exists DXA Scan 12/09/2026 12/09/2022, 11/21, 07/27/2015, Additional history exists DTaP,Tdap,and Td Vaccines (2 - Td or Tdap) 05/28/2029 05/28/2019 *BASELINE EKG FOR HTN Completed 04/25/2014, 012 Pneumococcal Vaccine: 65+ Years Completed 10/07/2016, 11/02/2014, 08/19/2008 Hepatitis C Screening Completed 03/20/2018 HPV (Gardasil) Vaccine Aged Out No lo [...] Diagnoses Diagnosis Type 2 diabetes mellitus with hemoglobin A1c goal of less than 8.0% (HCC) documented in this encounter Care Teams Business Technology Teacher Relationship Specialty Start Date End Date Swati Mendieta DO [address] [place] [address] [place] [id number] PCP - General Internal Medicine 03/08/19 documented as of this encounter
--- OUTSIDE RECORDS SUMMARY | 2024-08-07 08:36 | External Medical Summary | Summary of Care ---
Demographics Address [address] [place] [address] Home Phone Mobile Phone Preferred Language Wolof Marital Status Unknown Orthodox Affiliation Unknown Race White Ethnic Group Not or Lati no Author Name Unknown Organization [facility] Address [address] [facility] [place] [address] Phone [phone] Care Team Providers Care Ride Assembly Supervisor Name Role Phone Emy Hawk DO Primary Care Provider Reason for Visit * Reason Onset Date Comments Medication Refill 03/22/2024 Encounter Details Date Type Department Care Team (Late st Contact Info) Description 03/22/2024 Refill Family Medicine [address] [place] [address] Emy Hawk DO [address] [place] [address] [place] [phone] Hypertensive kidney disease with stage 3 chronic kidney disease, unspecified whether stage 3a or 3b CKD ([facility]) Allergies Active Allergy Reactions Criticality Noted Date Comments Amoxicillin Rash 04/18/2003 rash Metformin Diarrhea Medium 07/23/2013 documented as of this encounter (statuses as of 03/22/2024) Medications Medication Sig Dispensed Refills Start Date End Date Status ASPIRIN 81 MG PO TABSIndications:D M type 2, not at goal ([facility]) 1 TABLET DAILY 0 0 08/23/2008 Active [...] unspecified whether stage 3a or 3b CKD ([facility]) Tests blood sugar 2 times daily as directed. Dx E11.9 pt is on insulin 60 Strip 5 01/19/2021 Active OneTouch UltraSoft LancetsIndication s:Type 2 diabetes mellitus with stage 3 chronic kidney disease, with long-term current use of insulin, unspecified whether stage 3a or 3b CKD ([facility]) Use to test glucose up to 2 times daily, as directed. Diagnosis E11.9 pt is on insulin 60 Each 5 01/19/2021 Active Insulin Syringe-Needle U-100 30G X 1/2" 0.5 MLIndications:Typ e 2 diabetes mellitus with stage 3a chronic kidney disease, with long-term current use of insulin ([facility]) USE TWICE DAILY WITH INSULIN, DX : E11.9 200 Each 03/04/2022 Active Lovastatin 40 MG Oral TabletIndications :Dyslipidemia, goal LDL below 100 TAKE 1 TABLET BY MOUTH EVERYDAY AT BEDTIME 30 Tablet 11 07/01/2022 Active Lisinopril-hydroC HLOROthiazide 20-12.5 MG Oral TabletIndications :Essential hypertension with goal blood pressure less than 140/90 Take by mouth 1 Tablet in the morning. 30 Tablet 5 07/09/2022 Active BinOptics Ultra 2 w/Device KitIndications:Ty pe 2 diabetes mellitus with stage 3 chronic kidney disease, with long-term current use of insulin, unspecified whether stage 3a or 3b CKD ([facility]) Use as directed to check blood sugar [...] the morning. 90 Tablet 3 11/04/2023 Active Insulin Aspart Prot & Aspart (70-30) 100 UNIT/ML Subcutaneous Suspension (NovoLOG Mix 70/30)Indications :Type 2 diabetes mellitus with hemoglobin A1c goal of less than 8.0% ([facility]) INJECT 74 UNITS SUBCUTANEOUSLY IN THE MORNING AND 64 UNITS SUBCUTANEOUSLY BEFORE SUPPER 50 mL 1 03/08/2024 Active Metoprolol Succinate ER 100 MG Oral Tablet Extended Release 24 Hour (toPROL XL)Indications:Hy pertensive kidney disease with stage 3 chronic kidney disease, unspecified whether stage 3a or 3b CKD (HCC) Take 1 Tablet by mouth in the morning. 90 Tablet 1 03/22/2024 Active Metoprolol Succinate ER 100 MG Oral Tablet Extended Release 24 Hour (toPROL XL)Indications:Hy pertensive kidney disease with stage 3 chronic kidney disease, unspecified whether stage 3a or 3b CKD (HCC) Take 1 Tablet by mouth in the morning. 90 Tablet 1 09/23/2023 03/22/20 24 Discontinu ed(Refill) documented as of this encounter (statuses as of 03/22/2024) Active Problems Problem Noted Date Diagnosed Date [...] as of this encounter (statuses as of 03/22/2024) Resolved Problems Problem Noted Date Diagnosed Date [...] as of this encounter (statuses as of 03/22/2024) Immunizations Name Administration Dates Next Due COVID-19 mRNA, LNP-s, No Pre serve, 2-Dose Series (Moderna) 03/26/2021,02/26/2021 COVID-19, mRNA, LNP-s, PF, B ooster, 100mcg/0.5mg (Moderna) 12/08/2021 Covid-19, Mrna, Lnp-s, Pf, B ivalent, 30 Mcg, IM, 12 yrs and above (Wonderflow) 08/05/2022 Pneumococcal Conjugate Vacc, 13 Valent (Prevnar) [...] in the Last Year Never true 11/29/2019 Sex and Gender Information Value Date Recorded Sex Assigned at Female 03/04/2022 10:38 AM EDT Gender Identity Female 03/04/2022 10:38 AM EDT Sexual Orientation Straight 03/04/2022 10 :38 AM EDT Job Start Date Occupation Industry Not on file Not on file Not on file documented as of this encounter Miscellaneous Notes * Telephone Encounter - Moraima Fitzgerald MD - 03/22/2024 11:01 AM EDT Signed Prescriptions: Disp Refills Metoprolol Succinate ER 100 MG Oral Tablet*90 Tab*1 Sig: Take 1 Tablet by mouth in the morning. Authorizing Provider: MORAIMA FITZGERALD * Telephone Encounter - Soheila Dominguez CMA - 03/22/2024 9:49 AM EDTPending Prescriptions: Disp Refills Metoprolol Succinate ER 100 MG Oral Tablet*90 Tab*1 Sig: Take 1 Tablet by mouth in the morning. * Telephone Encounter - Lola Kirkland OSA - 03/22/2024 7:50 AM EDT Did you pend patient's preferred pharmacy and medication before forwarding?yes Pharmacy: [id number] [id number] [facility] Pending Prescriptions: Disp Refills Metoprolol Succinate ER 100 MG Oral Table*90 Tab*1 Sig: Take 1 Tablet by mouth in the morning. Last Visit: 07/30/2023 (in office), Visit date not found (telemedicine) Next Visit: 05/25/2024 If no future appointments scheduled, and last appointment is greater than a year ago, please schedule patient for a follow-up appointment Last date the medication was ordered: 09/23/23 Is this request for a controlled substance?No [...] 10:30 AM EDT Office Visit Family Medicine [address] [phone] Emy Hawk, [address] [place] [phone] Health Maintenance Due Date Last Done Comments Zoster Vaccines (2 of 3) 09/14/2012 07/20/2012 Depression Screening 03/04/2023 03/04/2022 COVID-19 Vaccine ( season) 2023 08/05/2022, 12/08/2021, 03/26/2021, Additional history exists HbA1c 11/29/2023 05/29/2023, 11/20, 09/02/2022, Additional history exists GFR 12/02/2023 12/02/2022, 05/20, 11/27/2021, Additional history exists Diabetic Foot Exam 12/06/2023 12/06/2022, 0 03/04/2022, 06/01/2021, Additional history exists Albumin/Creatinine Ratio 05/29/2024 023, 06/05/2022, 05/25/2021, Additional history exists Diabetic Eye Exam 09/05/2024 09/05/2023, , 07/22/2023, Additional history exists DXA Scan 12/09/2026 12/09/2022, 11/21, 07/27/2015, Additional history exists DTaP,Tdap,and Td Vaccines (2 - Td or Tdap) 05/28/2029 05/28/2019 Pneumococcal Vaccine: 65+ Years Completed 10/07/2016, 11/02/2014, 08/19/2008 Influenza Vaccine (FLU shot) Completed 08/2023, 08/05/2022, 12/05/2021, Additional history exists GARDASIL-HPV IMMUNIZATION SERIES Aged Out No longer eligible based on patient's age to complete this topic Hepatitis B Aged Out No longer eligi ble based on patient's age to complete this topic MENINGOCOCCAL (MENACTRA/MENVEO) Aged Out No longer eligible based on patient's age to complete this topic documented as of this encounter Medical Devices Not on filedocumented as of this encounter Visit Diagnoses Diagnosis Hypertensive kidney disease with stage 3 chronic kidney disease, unspecified whether stage 3a or 3b CKD (HCC) documented in this encounter Care Teams Ride Assembly Supervisor Relationship Specialty Start Date End Date Emy Hawk DO [address] [place] [address] [place] [phone] PCP - General Internal Medicine 03/08/19 documented as of this encounter
--- OUTSIDE RECORDS SUMMARY | 2024-08-07 08:36 | External Medical Summary ---
Demographics Address [address] [facility] [place] [place] [address] Phone Unavailable Preferred Language Unknown Marital Status Unknown Caodaism Affiliation Unknown Race Unknown Ethnic Group Unknown Author Name Unknown Address Unknown Organization [facility] [address] [place] [address] Laboratory Report Ordering Provider Test Date Status GAYATRI LONGORIA 05/26/2024 07:59:55 Final Observation Date Value Abnormality Reference (Units ) Status Magnesium 05/26/2024 07:59:55 1.9 1.5-2.6 (m g/dL) Final Performing Location [facility] [address] [place] [address]
--- OUTSIDE RECORDS SUMMARY | 2024-08-07 08:36 | External Medical Summary | Summary of Care ---
Demographics Address [address] [place] [address] Home Phone Mobile Phone Preferred Language Prydeinig Marital Status Unknown Anglican Affiliation Unknown Race White Ethnic Group Not or Lati no Author Name Unknown Organization [facility] Address [address] [facility] [address] Phone [phone] Care Team Providers Care Denture Contour Wire Specialist Name Role Phone Emy Hawk DO Primary Care Provider [phone] Reason for Visit * Reason Comments Re-Check Pt denies any concer ns. Pt did not take medication yet today, other than insulin. Encounter Details Date Type Department Care Team (Latest Contact Info) Description 05/25/2024 10:30 AM EDT Office Visit Family Medicine [address] [phone] Emy Hawk DO [address] [place] [address] [place] [id number] Type 2 diabetes mellitus with hemoglobin A1c goal of less than 8.0% ([facility])*; Moderate nonproliferative diabetic retinopathy of both eyes with macular edema associated with type 2 diabetes mellitus (HCC); Severe obesity with body mass index (BMI) of 35.0 to 39.9 with serious comorbidity (HCC); Primary open-angle glaucoma, bilateral, mild stage; Essential hypertension with goal blood pressure less than 140/90; Hyperlipidemia with target LDL less than 70; Vitamin D deficiency; Gastroesophageal reflux disease without esophagitis; [facility] current use of therapeutic drug Allergies Active Allergy Reactions Criticality Noted Date Comments Amoxicillin Rash 04/18/2003 rash Metformin Diarrhea Medium 07/23/2013 documented as of this encounter (statuses as of 05/25/2024) Medications Medication Sig Dispensed Refills Start Date End Date Status ASPIRIN 81 MG PO TABSIndications:DM type 2, not at goal ([facility]) 1 TABLET DAILY 0 0 08/23/2008 Active Cholecalciferol (VITAMIN D3) 2000 UNITS CapsuleIndications :Vitamin D deficiency TAKE ONE CAPSULE BY MOUTH DAILY. 90 Cap 1 02/17/2017 Active Latanoprost 0.005 % EMUL Instill into eye. Instill 1 drop in each eye at bedtime Active Insem Spauch Ultra Blue In Vitro Strip (Glucose Blood)Indications: Type 2 diabetes mellitus with stage 3 chronic kidney disease, with long-term current use of insulin, unspecified whether stage 3a or 3b CKD ([facility]) Tests blood sugar 2 times daily as directed. Dx E11.9 pt is on insulin 60 Strip 5 01/19/2021 Active Insem Spauch UltraSoft LancetsIndications :Type 2 diabetes mellitus with stage 3 chronic kidney disease, with long-term current use of insulin, unspecified whether stage 3a or 3b CKD ([facility]) Use to test glucose up to 2 times daily, as directed. Diagnosis E11.9 pt is on insulin 60 Each 5 01/19/2021 Active Insulin Syringe-Needle U-100 30G X 1/2" 0.5 MLIndications:Type 2 diabetes mellitus with stage 3a chronic kidney disease, with long-term current use of insulin ([facility]) USE TWICE DAILY WITH INSULIN, DX : E11.9 200 Each 03/04/2022 Active Lovastatin 40 MG Oral TabletIndications: Dyslipidemia, goal LDL below 100 TAKE 1 TABLET BY MOUTH EVERYDAY AT BEDTIME 30 Tablet 07/01/2022 Active Lisinopril-hydroCH LOROthiazide 20-12.5 MG Oral TabletIndications: Essential hypertension with goal blood pressure less than 140/90 Take by mouth 1 Tablet in the morning. 30 Tablet 5 07/09/2022 Active KaskadoTouch Ultra 2 w/Device KitIndications:Typ e 2 diabetes mellitus with stage 3 chronic kidney disease, with long-term current use of insulin, unspecified whether stage 3a or 3b CKD ([facility]) Use as directed to check [...] as of this encounter (statuses as of 05/25/2024) Active Problems Problem Noted Date Diagnosed Date [...] as of this encounter (statuses as of 05/25/2024) Resolved Problems Problem Noted Date Diagnosed Date [...] as of this encounter (statuses as of 05/25/2024) Immunizations Name Administration Dates Next Due COVID-19 [...] Sign Reading Time Taken Comments Blood Pressure 148/72 05/25/2024 10:28 AM EDT Pulse 104 05/25/2024 10:28 AM EDT Temperature - - Respiratory Rate - - Oxygen Saturation 98% 05/25/2024 10:28 AM EDT Inhaled Oxygen Concentration - - Weight 85.7 kg (189 lb) 05/25/2024 10:28 AM EDT Height - - Body Mass Index 34.57 06/06/2023 9:45 AM EDT documented in this encounter Patient Instructions * Patient Instructions* Emy Hawk DO - 05/25/2024 10:57 AM EDT I recommend that you get your RSV vaccine at the pharmacy prior to winter. documented in this encounter Progress Notes * Emy Hawk DO - 05/25/2024 10:41 AM EDT Subjective: Erica Escoto is a 78 year old female. Chief Complaint Patient presents with Re-Check Pt denies any concerns. Pt did not take medication yet today, other than insulin. HPI: Erica Escoto presents today for routine follow up. She has no concerns today. She did not take her medicine yet today. BP is a little high here today with missing her medicine. She typically takes her medicine every day. Blood sugars are running about the same. No recent illnesses or hospitalizations. Two falls this year - fell once getting out of her car when she was rushing. The other time she tripped on a blanket. Thankfully she was not seriously injuredeither day. No heartburn on omeprazole. Discussed RSV vaccination and COVID vaccination. She continues to see the eye doctor - Dr. Ramos and Dr. Aponte. PMH: Patient Active Problem List Diagnosis GENERAL OSTEOARTHROSIS Peripheral sensory neuropathy Abnormality of gait Hyperlipidemia with target LDL less than 70 DM type 2 causing neurological disease (HCC) GERD (gastroesophageal reflux disease) Vitamin D deficiency Type 2 diabetes mellitus with hemoglobin A1c goal of less than 8.0% (HCC) Essential hypertension with goal blood pressure less than 140/90 Severe obesity with body mass index (BMI) of 35.0 to 39.9 with serious comorbidity (HCC) Moderate nonproliferative diabetic retinopathy of both eyes with macular edema associated with type2 diabetes mellitus (HCC) Current Outpatient Medications Medication Sig Dispense Refill [...] Tablet in the morning. 30 Tablet 5 KaskadoToWi-Chi 2 w/Device Kit Use as directed to check blood sugar level once daily; dx code: E11.91 Each 0 Omeprazole 20 MG Oral Capsule Delayed Release [...] UNITS SUBCUTANEOUSLY BEFORE SUPPER 50 mL 1 No current facility-administered medications for this visit. Review of patient's allergies indicates: Allergen Reactions Metformin Diarrhea Amoxicillin Rash rash Objective: BP 148/72 | Pulse 104 | Wt 85.7 kg (189 lb) | SpO2 98% | BMI 34.57 kg/m | BSA 1.94 m General: alert, healthy, no distress, well nourished, and well developed Neck: supple, no adenopathy, thyroid normal size, non-tender, without nodularity Heart: regular rate & rhythm and no murmur Lungs: chest symmetric with normal AP diameter, no chest deformities noted, normal respiratory rateand rhythm, lungs clear to auscultation Abdomen: abdomen soft and non-tender Extremities: no joint deformities, effusion, or inflammation, no edema Neuro Exam: alert & oriented x 3 with fluent speech, no focal motor/sensory deficits, gait normal Skin: skin color, texture, turgor are normal, no rashes or significant lesions ASSESSMENT/PLAN: Type 2 diabetes mellitus with hemoglobin A1c goal of less than 8.0% ([facility]) (Primary) - continue samemeds, update labs. - DIABETES FOOT EXAM - COMPREHENSIVE METABOLIC PANEL; Future; Expected date: 05/25/2024 - HEMOGLOBIN A1C; Future; Expected date: 05/25/2024 - ALBUMIN / CREATININE RATIO, URINE; Future; Expected date: 05/25/2024 Moderate nonproliferative diabetic retinopathy of both eyes with macular edema associated with type2 diabetes mellitus (HCC) Severe obesity with body mass index (BMI) of 35.0 to 39.9 with serious comorbidity (HCC) Primary open-angle glaucoma, bilateral, mild stage - follows with the eye doctor. Essential hypertension with goal blood pressure less than 140/90 - high here today but she did not take her medicine. Hyperlipidemia with target LDL less than 70 - LIPID PANEL WITH DIRECT LDL IF TG IS HIGH; Future; Expected date: 05/25/2024 - COMPREHENSIVE METABOLIC PANEL; Future; Expected date: 05/25/2024 Vitamin D deficiency Gastroesophageal reflux disease without esophagitis - continue omeprazole. [facility] current use of therapeutic drug - VITAMIN B12; Future; Expected date: 05/25/2024 - MAGNESIUM; Future; Expected date: 05/25/2024 Follow-up: Return in about 6 months (around 11/25/2024). | Check-out note: She will do her labs tomorrow. Emy Hawk DO * Nancy Turcios LPN - 05/25/2024 10:30 AM EDT Socks and Shoes Removed for Annual Diabetic Foot Screening RIGHT FOOT: No Reddened, Cracking, Or Open Areas Noted. RIGHT Dorsalis Pedis Pulse: Palpable RIGHT Posterior Tibial Pulse: Palpable RIGHT Monofilament:Patient reports feeling monofilament pressure on plantar surface of foot LEFT FOOT: No Reddened, Cracking or Open Areas Noted. LEFT Dorsalis Pedis Pulse: Palpable LEFT Posterior Tibial Pulse: Palpable LEFT Monofilament:Patient reports feeling monofilament pressure on plantar surface of foot documented in this encounter Plan of Treatment Upcoming Encounters Date Type Department Care Team (Late st Contact Info) Description 01/07/2025 9:30 AM EDT Office Visit Family Medicine [address] [place] [address] [place] [phone] Scheduled Orders Name Type Priority Associated Diagnoses Orde r Schedule LIPID PANEL WITH DIRECT LDL IF TG IS HIGH Lab Routine Hyperlipidemia with target LDL less than 70 Expected: 05/25/2024, Expires: 05/25/2025 COMPREHENSIVE METABOLIC PANEL Lab Routine Type 2 diabetes mellitus with hemoglobin A1c goal of less than 8.0% (HCC) Hyperlipidemia with target LDL less than 70 Expected: 05/25/2024 (Approximate), Expires: 05/25/2025 HEMOGLOBIN A1C Lab Routine Type 2 diabetes mellitus with hemoglobin A1c goal of less than 8.0% (HCC) Expected: 05/25/2024 (Approximate), Expires: 05/25/2025 VITAMIN B12 Lab 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 Expected: 05/25/2024 (Approximate), Expires: 05/25/2025 MAGNESIUM Lab 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 Expected: 05/25/2024 (Approximate), Expires: 05/25/2025 ALBUMIN / CREATININE RATIO, URINE Lab Routine Type 2 diabetes mellitus with hemoglobin A1c goal of less than 8.0% (HCC) Expected: 05/25/2024 (Approximate), Expires: 05/25/2025 Health Maintenance Due Date Last Done Comments Zoster Vaccines (2 of 3) 09/14/2012 07/20/2012 Adult Wellness Visit 05/17/2016 05/17/2015 Depression Screening 03/04/2023 03/04/2022 COVID-19 Vaccine (24 season) 2023 08/05/2022, 08/05/2022, 12/08/2021, Additional history [...] hemoglobin A1c goal of less than 8.0% (HCC)- Primary Moderate nonproliferative diabetic retinopathy of both eyes with macular edema associated with type 2 diabetes mellitus (HCC) Severe obesity with body mass index (BMI) of 35.0 to 39.9 with serious comorbidity (HCC) Primary open-angle glaucoma, bilateral, mild stage Essential hypertension with goal blood pressure less than 140/90 Hyperlipidemia with target LDL less than 70 Other and unspecified hyperlipidemia Vitamin D deficiency Unspecified vitamin D deficiency Gastroesophageal reflux disease without esophagitis Esophageal reflux [facility] current use of therapeutic drug documented in this encounter Care Teams Denture Contour Wire Specialist Relationship Specialty Start Date End Date Emy Hawk DO [address] [place] [address] [place] [phone] PCP - General Internal Medicine 03/08/19 documented as of this encounter
--- OUTSIDE RECORDS SUMMARY | 2024-08-07 08:36 | External Medical Summary ---
Demographics Address [address] [facility] [place] [address] Phone Unavailable Preferred Language Unknown Marital Status Unknown Buddhist Affiliation Unknown Race Unknown Ethnic Group Unknown Author Name Unknown Address Unknown Organization K01:[facility] [place] [address] [place] [address] Laboratory Report Ordering Provider Test Date Status GAYATRI LONGORIA 05/26/2024 07:59:55 Final Observation Date Value Abnormality Reference (Units ) Status Triglyceride 05/26/2024 07:59:55 104 <=174 ( mg/dL) Final Triglyceride Reference Range s (mg/dL):
<150 Acceptable
150-174 Borderline high
175-499 High
>=500 Very high Cholesterol 05/26/2024 07:59:55 149 <200 (mg /dL) Final Total Cholesterol Reference Ranges (mg/dL):
<200 Desirable
200-239 Borderline high
>=240 High HDL 05/26/2024 07:59:55 43 Below low normal >49 (mg/dL) Final HDL Cholesterol Reference Ra nges (mg/dL):
>=60 High (Desirable)
<50 Low (Undesirable) For Females
<40 Low (Undesirable) For Males NON-HDL CHOLESTEROL 05/26/2024 07:59:55 106 <=159 (mg/dL) Final Non-HDL Cholesterol Referenc e Range (mg/dL):
<100 Target level for high risk ASCVD patient
<130 Optimal for general population
130-159 Near optimal for general population
160-189 Borderline High
190-219 High
>=220 Very High LDL, (calculated) 05/26/2024 07:59:55 85 <= 129 (mg/dL) Final LDL Cholesterol Reference Ra nges (mg/dL):
<70 Target level for high risk ASCVD patient
<100 Optimal for general population
100-129 Near optimal for general population
130-159 Borderline high
160-189 High
>=190 Very high Performing Location [facility] [place] - [address] [facility] [address]
--- OUTSIDE RECORDS SUMMARY | 2024-08-07 08:36 | External Medical Summary | Summary of Care ---
Demographics Address [address] [place] [address] Home Phone Mobile Phone Preferred Language Mohawk Marital Status Unknown Mu-Ism Affiliation Unknown Race White Ethnic Group Not or Lati no Author Name Unknown Organization [facility] Address [address] [facility] [place] [address] Phone [phone] Care Team Providers Care Etcher Aircraft Name Role Phone Swati Mendieta DO Primary Care Provider [phone] Reason for Visit * Reason Onset Date Comments Medication Refill 03/08/2024 Encounter Details Date Type Department Care Team (Late st Contact Info) Description 03/08/2024 Refill Family Medicine [address] [phone] Swati Mendieta DO [address] [place] [address] [place] [phone] Type 2 diabetes mellitus with hemoglobin A1c goal of less than 8.0% ([facility]) Allergies Active Allergy Reactions Criticality Noted Date Comments Amoxicillin Rash 04/18/2003 rash Metformin Diarrhea Medium 07/23/2013 documented as of this encounter (statuses as of 03/08/2024) Medications Medication Sig Dispensed Refills Start Date End Date Status ASPIRIN 81 MG PO TABSIndications:D M type 2, not at goal ([facility]) 1 TABLET DAILY 0 0 [...] the morning. 30 Tablet 5 07/09/2022 Active [email or web address] Ultra 2 w/Device KitIndications:Ty pe 2 diabetes [...] the morning. 90 Capsule 3 07/29/2023 Active Metoprolol Succinate ER 100 MG Oral Tablet Extended Release 24 Hour (toPROL XL)Indications:Hy pertensive kidney disease with stage 3 chronic kidney disease, unspecified whether stage 3a or 3b CKD (HCC) Take 1 Tablet by mouth in the morning. 90 Tablet 1 09/23/2023 Active Ventolin HFA 108 (90 Base) MCG/ACT [...] BEFORE SUPPER 50 mL 1 03/08/2024 Active Insulin Aspart Prot & Aspart (70-30) 100 UNIT/ML Subcutaneous Suspension (NovoLOG Mix 70/30)Indications :Type 2 diabetes mellitus with hemoglobin A1c goal of less than 8.0% (HCC) INJECT 74 UNITS SUBCUTANEOUSLY IN THE MORNING AND 64 UNITS SUBCUTANEOUSLY BEFORE SUPPER 50 mL 1 12/31/2023 03/08/20 24 Discontinu ed(Refill) documented as of this encounter (statuses as of 03/08/2024) Active Problems Problem Noted Date Diagnosed Date [...] as of this encounter (statuses as of 03/08/2024) Resolved Problems Problem Noted Date Diagnosed Date [...] as of this encounter (statuses as of 03/08/2024) Immunizations Name Administration Dates Next Due COVID-19 [...] Telephone Encounter - Swati Mendieta DO - 03/08/2024 9:36 PM EDTSigned Prescriptions: Disp Refills Insulin Aspart Prot & Aspart (70-30) 100 U*50 mL 1 Sig: INJECT 74 UNITS SUBCUTANEOUSLY IN THE MORNING AND 64 UNITS SUBCUTANEOUSLY BEFORE SUPPER Authorizing Provider: SWATI MENDIETA * Telephone Encounter - Britt Matamoros RN - 03/08/2024 4:01 PM EDTPending Prescriptions: Disp Refills Insulin Aspart Prot & Aspart (70-30) 100 U*50 mL 1 Sig: INJECT 74 UNITS SUBCUTANEOUSLY IN THE MORNING AND 64 UNITS SUBCUTANEOUSLY BEFORE SUPPER * Telephone Encounter - Codi Garcia OSA - 03/08/2024 2:46 PM EDT Did you pend patient's preferred pharmacy and medication before forwarding?yes Pharmacy: [id number] [id number] [facility] Pending Prescriptions: Disp Refills Insulin Aspart Prot [...] appointment Last date the medication was ordered: 12.31.23 Is this request for a controlled substance?No [...] 10:30 AM EDT Office Visit Family Medicine [address] [place] [phone] [place] [address] Health Maintenance Due Date Last Done Comments [...] (HCC) documented in this encounter Care Teams Etcher Aircraft Relationship Specialty Start Date End Date Swati Mendieta DO [address] [place] [address] [place] [id number] PCP - General Internal Medicine 03/08/19 documented as of this encounter
[2024-08-07] MEDS ORDERED: METOPROLOL SUCC 25MG EXT REL TAB PO SCH (09:00)
[2024-08-07] MEDS ORDERED: NON-FORMULARY MEDICATION (Mecobalamin (Vitamin B12) [B12 Active] 1,000 mcg Tablet,Chewable PO SCH (09:00)
[2024-08-07] MEDS: CYANOCOBALAMIN (B-12) 500 MCG TABLET PO SCH (09:50)
[2024-08-07] MEDS: FUROSEMIDE 40 MG/4 ML VIAL IV SCH (09:51)
--- NOTE | 2024-08-07 10:17 | Gastrointestinal Consultation ---
Date of Consultation August 07, 2024 Assessment & Plan (1) Anemia: Pleasant lady with melenic stools and anemia following orthopedic issues. She denies NSAID usage though. More than likely she is having an UGI bleed. Will plan EGD for tomorrow. She agrees History of Present Illness Reason for Consultation: anemia Attending Physician: Albert Larose, DO History of Present Illness 79 year old female who came in after having a near syncopal spell yesterday. She tells me she goes to the bathroom 2-3 times per day as a rule. Over the last few days her bowel movements have been black. She denies abdominal pain. She denies nausea or vomiting. She takes "reflux medication" daily. She has never had an EGD. She has never had a colonoscopy. She was recently in the hospital for a right humerus fracture and left thumb fracture. She denies using NSAIDs "I can't take those because I am diabetic". Allergies Allergy/AdvReac Type Severity Reaction Status Date / Time amoxicillin Allergy Mild RASH,ITCHIN Verified 08/07/24 01:22 G adhesive tape Allergy Unknown rash with Verified 08/07/24 01:35 bandaids & all tape except Paper Home Medications Medication Instructions Recorded Confirmed Type acetaminophen 500 mg capsule 1,000 mg PO DAILY PRN Pain 08/07/24 08/07/24 History albuterol sulfate 90 mcg/actuation 2 puff inhalation Q4H PRN SOB 08/07/2407/20 History aerosol inhaler apixaban 5 mg tablet (Eliquis) 5 mg PO BID 08/07/24 08/07/24 History ascorbic acid (vitamin C) 500 mg 500 mg PO DAILY 08/07/24 08/07/24 History tablet (Vitamin C) aspirin 81 mg capsule 81 mg PO DAILY 08/07/24 08/07/24 History blood-glucose meter (OneTouch 08/07/24 08/07/24 History Ultra2 Meter) cholecalciferol (vitamin D3) 25 25 mcg PO DAILY 08/07/24 08/07/24 History mcg (1,000 unit) capsule (Vitamin D3) cyanocobalamin (vitamin B-12) 1,000 mcg PO QAM 08/07/24 08/07/24 History 1,000 mcg tablet insulin aspar prot-insulin aspart See Rx Instructions .Route .COMPLEX 08/07/24 08/07/24 History 100 unit/mL (70-30) subcutaneous pen (Novolog Mix 70-30FlexPen U-100) latanoprost 0.005 % eye drops 1 drp ophthalmic (eye) HS 08/07/24 08/07/24 History lisinopril 0 mg PO DAILY 08/07/24 08/07/24 History lovastatin 10 mg tablet 10 mg PO PM 08/07/24 08/07/24 History mecobalamin (vitamin B12) 1,000 1,000 mcg PO DAILY 08/07/24 08/07/24 History mcg chewable tablet (B12 Active) metoprolol succinate 100 mg 100 mg PO QAM 08/07/24 08/07/24 History tablet,extended release 24 hr omeprazole 20 mg capsule,delayed 20 mg PO QAM 08/07/24 08/07/24 History release Patient History Medical History Hyperlipidemia Hypertension Type 2 diabetes mellitus Social History Smoking Status: Former smoker Tobacco Type: Cigarettes Smoking End Date: 1998; Second Hand Exposure: No; Do You Dip or Chew Tobacco: No; Tobacco Cessation Education Requested by Patient: No Hx Alcohol Use: No Hx Substance Use: No Preferred Language: Dutch Communication Ability: Effective Rn Unit Manager Required: No Beliefs That Will Affect Care: None Current Living Situation: Family Current Living Situation Comment: lives with son Other Information That Helps Us Care for You: No Feels Safe at Home: Yes Safety Concerns: Feels Safe At This Time Assistive Devices: Cane, Glasses and Walker Review of Systems Review of Systems: All systems reviewed & are unremarkable except as noted in HPI & below Physical Exam Constitutional: WD/WN, vitals as above Neck: trachea midline, no thyromegaly Respiratory: normal respiratory effort, lungs clear to auscultation Cardiovascular: RRR, no murmur, no edema Gastrointestinal (Abdomen): normal bowel sounds, soft, nontender, no hepatosplenomegaly Results & Data Vital Signs (Past 12 Hours) Vital Signs Temp Pulse Pulse Resp BP Pulse Ox O2 Del Method 08/07/24 08:00 36.6 C 104 H 20 115/66 96 Room Air 08/07/24 03:09 36.5 C 76 20 108/59 L 98 Room Air 08/07/24 02:52 36.5 C 74 24 108/59 L 97 Room Air 08/07/24 02:52 Room Air 08/07/24 02:16 36.7 C 87 18 112/63 98 Room Air 08/07/24 00:52 94 H 08/07/24 00:06 89 18 117/51 L 98 Room Air Laboratory Results 08/07/24 08/07/24 08/07/24 Range/Units 07:54 06:10 02:57 WBC (4.8-10.8) K/ul RBC (4.20-5.40) M/uL Hgb 8.6 L (12.0-16.0) g/dl Hct 28.4 L (37.0-47.0) % MCV (80.0-100.0) fL MCH (25.0-34.0) pg MCHC (32.0-36.0) g/dL RDW Std Deviation (36.4-46.3) fL RDW Coeff of Alvaro (11.5-14.5) % Plt Count (130-400) K/uL MPV (9.4-12.4) fL Immature Gran % (Auto) % Neut % (Auto) % Lymph % (Auto) % [place] % (Auto) % Eos % (Auto) % Baso % (Auto) % Reticulocyte % (Auto) (0.50-2.00) % Neut # (Auto) (1.40-6.50) K/uL Lymph # (Auto) (1.20-3.40) K/uL [place] # (Auto) (0.11-0.59) K/uL Eos # (Auto) (0.00-0.50) K/uL Baso # (Auto) (0.00-0.20) K/uL Reticulocyte # (0.020-0.100) 10^6/uL Immature Gran # (Auto) (0.01-0.20) K/uL PT (9.0-12.0) Seconds INR (0.9-1.1) Sodium (136-145) mmol/L Potassium (3.5-5.1) mmol/L Chloride (98-107) mmol/L Carbon Dioxide (21-32) mmol/L Anion Gap (3-11) BUN (6-23) mg/dl Creatinine (0.6-1.2) mg/dl Est Cr Clr Drug Dosing ml/min eGFR BUN/Creatinine Ratio (10-20) Glucose (70-99(Fasting)) mg/dl POC Glucose 113 H 104 H (70-99) mg/dl Estimat Average Glucose mg/dl Hemoglobin A1c (4.5-5.6) % Calcium (8.6-10.3) mg/dl Phosphorus (2.5-4.9) mg/dl Magnesium (1.7-2.4) mg/dl Iron (35-150) mcg/dl Transferrin (200-360) mg/dl Ferritin (8-388) ng/ml Total Bilirubin (0.2-1.0) mg/dl AST (13-39) U/L ALT (7-52) U/L Alkaline Phosphatase (34-104) U/L Total Creatine Kinase 1196 H (26-192) U/L Troponin I High Sens (0-14) pg/ml B-Natriuretic Peptide (0-100) pg/ml Total Protein (6.0-8.3) gm/dl Albumin (3.4-5.0) gm/dl Globulin (2.5-4.0) gm/dl Albumin/Globulin Ratio (0.9-2) Vitamin B12 (180-914) pg/ml Folate (>5.38) ng/ml Procalcitonin (0-0.5) ng/ml TSH (0.300-4.500) uIu/ml Free T4 (0.61-1.60) ng/dl Urine Color Urine Appearance (Clear) Urine pH (4.5-7.5) Ur Specific [place] (1.000-1.030) Urine Protein (Negative) Urine Glucose (UA) (Negative) Urine Ketones (Negative) Urine Blood (Negative) Urine Nitrite (Negative) Urine Bilirubin (Negative) Urine Urobilinogen (Negative) Ur Leukocyte Esterase (Negative) Urine WBC (Auto) (0-5) /hpf Urine RBC (Auto) (0-2) /hpf U Hyaline Cast (Auto) (0-2) /lpf U Epithel Cells (Auto) (0-2) /hpf Urine Bacteria (Auto) (None Seen) Blood Type Antibody Screen 08/07/24 08/07/24 08/07/24 Range/Units 02:31 02:19 00:05 WBC 11.75 H (4.8-10.8) K/ul RBC 3.55 L (4.20-5.40) M/uL Hgb 9.0 L (12.0-16.0) g/dl Hct 30.3 L (37.0-47.0) % MCV 85.4 (80.0-100.0) fL MCH 25.4 (25.0-34.0) pg MCHC 29.7 L (32.0-36.0) g/dL RDW Std Deviation 47.8 H (36.4-46.3) fL RDW Coeff of Alvaro 15.1 H (11.5-14.5) % Plt Count 233 (130-400) K/uL MPV 10.3 (9.4-12.4) fL Immature Gran % (Auto) 0.3 % Neut % (Auto) 79.0 % Lymph % (Auto) 10.1 % [place] % (Auto) 10.0 % Eos % (Auto) 0.2 % Baso % (Auto) 0.4 % Reticulocyte % (Auto) 2.63 H (0.50-2.00) % Neut # (Auto) 9.29 H (1.40-6.50) K/uL Lymph # (Auto) 1.19 L (1.20-3.40) K/uL [place] # (Auto) 1.17 H (0.11-0.59) K/uL Eos # (Auto) 0.02 (0.00-0.50) K/uL Baso # (Auto) 0.05 (0.00-0.20) K/uL Reticulocyte # 0.090 (0.020-0.100) 10^6/uL Immature Gran # (Auto) 0.03 (0.01-0.20) K/uL PT (9.0-12.0) Seconds INR (0.9-1.1) Sodium 137 (136-145) mmol/L Potassium 4.5 (3.5-5.1) mmol/L Chloride 104 (98-107) mmol/L Carbon Dioxide 26 (21-32) mmol/L Anion Gap 7 (3-11) BUN 47 H (6-23) mg/dl Creatinine 1.06 (0.6-1.2) mg/dl Est Cr Clr Drug Dosing 50.3 ml/min eGFR 53.44 BUN/Creatinine Ratio 44.3 H (10-20) Glucose 100 H (70-99(Fasting)) mg/dl POC Glucose 103 H (70-99) mg/dl Estimat Average Glucose 97 mg/dl Hemoglobin A1c 5.0 (4.5-5.6) % Calcium 8.6 (8.6-10.3) mg/dl Phosphorus (2.5-4.9) mg/dl Magnesium (1.7-2.4) mg/dl Iron 17 L (35-150) mcg/dl Transferrin 291 (200-360) mg/dl Ferritin 23.7 (8-388) ng/ml Total Bilirubin (0.2-1.0) mg/dl AST (13-39) U/L ALT (7-52) U/L Alkaline Phosphatase (34-104) U/L Total Creatine Kinase (26-192) U/L Troponin I High Sens (0-14) pg/ml B-Natriuretic Peptide (0-100) pg/ml Total Protein (6.0-8.3) gm/dl Albumin (3.4-5.0) gm/dl Globulin (2.5-4.0) gm/dl Albumin/Globulin Ratio (0.9-2) Vitamin B12 810 (180-914) pg/ml Folate 17.27 (>5.38) ng/ml Procalcitonin (0-0.5) ng/ml TSH (0.300-4.500) uIu/ml Free T4 (0.61-1.60) ng/dl Urine Color Yellow Urine Appearance Clear (Clear) Urine pH 5.0 (4.5-7.5) Ur Specific [place] 1.038 H (1.000-1.030) Urine Protein Trace H (Negative) Urine Glucose (UA) Negative (Negative) Urine Ketones Trace H (Negative) Urine Blood Negative (Negative) Urine Nitrite Positive A (Negative) Urine Bilirubin Negative (Negative) Urine Urobilinogen Negative (Negative) Ur Leukocyte Esterase Trace H (Negative) Urine WBC (Auto) 0-5 (0-5) /hpf Urine RBC (Auto) 0-2 (0-2) /hpf U Hyaline Cast (Auto) 0-2 (0-2) /lpf U Epithel Cells (Auto) 0-2 (0-2) /hpf Urine Bacteria (Auto) 3+ H (None Seen) Blood Type A Positive Antibody Screen NEGATIVE 08/06/24 08/06/24 08/06/24 Range/Units 23:03 20:46 20:43 WBC 13.22 H (4.8-10.8) K/ul RBC 3.84 L (4.20-5.40) M/uL Hgb 10.1 L (12.0-16.0) g/dl Hct 33.5 L (37.0-47.0) % MCV 87.2 (80.0-100.0) fL MCH 26.3 (25.0-34.0) pg MCHC 30.1 L (32.0-36.0) g/dL RDW Std Deviation 48.1 H (36.4-46.3) fL RDW Coeff of Alvaro 15.2 H (11.5-14.5) % Plt Count 226 (130-400) K/uL MPV 10.6 (9.4-12.4) fL Immature Gran % (Auto) 0.8 % Neut % (Auto) 82.0 % Lymph % (Auto) 6.4 % [place] % (Auto) 9.8 % Eos % (Auto) 0.5 % Baso % (Auto) 0.5 % Reticulocyte % (Auto) (0.50-2.00) % Neut # (Auto) 10.86 H (1.40-6.50) K/uL Lymph # (Auto) 0.84 L (1.20-3.40) K/uL [place] # (Auto) 1.30 H (0.11-0.59) K/uL Eos # (Auto) 0.06 (0.00-0.50) K/uL Baso # (Auto) 0.06 (0.00-0.20) K/uL Reticulocyte # (0.020-0.100) 10^6/uL Immature Gran # (Auto) 0.10 (0.01-0.20) K/uL PT 16.9 H (9.0-12.0) Seconds INR 1.6 H (0.9-1.1) Sodium 136 (136-145) mmol/L Potassium 4.2 (3.5-5.1) mmol/L Chloride 105 (98-107) mmol/L Carbon Dioxide 25 (21-32) mmol/L Anion Gap 6 (3-11) BUN 48 H (6-23) mg/dl Creatinine 1.01 (0.6-1.2) mg/dl Est Cr Clr Drug Dosing 52.7 ml/min eGFR 56.63 BUN/Creatinine Ratio 47.5 H (10-20) Glucose 132 H (70-99(Fasting)) mg/dl POC Glucose 141 H (70-99) mg/dl Estimat Average Glucose mg/dl Hemoglobin A1c (4.5-5.6) % Calcium 8.7 (8.6-10.3) mg/dl Phosphorus 4.5 (2.5-4.9) mg/dl Magnesium 2.2 (1.7-2.4) mg/dl Iron (35-150) mcg/dl Transferrin (200-360) mg/dl Ferritin (8-388) ng/ml Total Bilirubin 0.5 (0.2-1.0) mg/dl AST 45 H (13-39) U/L ALT 24 (7-52) U/L Alkaline Phosphatase 151 H (34-104) U/L Total Creatine Kinase 575 H (26-192) U/L Troponin I High Sens 12.8 (0-14) pg/ml B-Natriuretic Peptide 251 H (0-100) pg/ml Total Protein 6.3 (6.0-8.3) gm/dl Albumin 3.5 (3.4-5.0) gm/dl Globulin 2.8 (2.5-4.0) gm/dl Albumin/Globulin Ratio 1.3 (0.9-2) Vitamin B12 (180-914) pg/ml Folate (>5.38) ng/ml Procalcitonin 0.06 (0-0.5) ng/ml TSH 4.617 H (0.300-4.500) uIu/ml Free T4 1.21 (0.61-1.60) ng/dl Urine Color Urine Appearance (Clear) Urine pH (4.5-7.5) Ur Specific [place] (1.000-1.030) Urine Protein (Negative) Urine Glucose (UA) (Negative) Urine Ketones (Negative) Urine Blood (Negative) Urine Nitrite (Negative) Urine Bilirubin (Negative) Urine Urobilinogen (Negative) Ur Leukocyte Esterase (Negative) Urine WBC (Auto) (0-5) /hpf Urine RBC (Auto) (0-2) /hpf U Hyaline Cast (Auto) (0-2) /lpf U Epithel Cells (Auto) (0-2) /hpf Urine Bacteria (Auto) (None Seen) Blood Type Antibody Screen Diagnostic Findings Chest X-Ray 08/06/24 20:54 XR chest 1V portable CLINICAL HISTORY: fall TECHNIQUE: Single frontal radiograph of the chest was obtained. Comparison: Comparison is made to CT chest 08/06/2024 FINDINGS: No lines and tubes are seen. Cardiomegaly is noted. There is prominence and cephalization of the vasculature with Hong B lines seen. Likely a small bilateral pleural effusions. IMPRESSION: 1. Cardiomegaly and moderate pulmonary edema. 2. Small bilateral pleural effusions. ACT 112: Negative or not required by law. Electronically signed by: Frank Bacon M.D. 08/07/2024 7:46 AM Abdomen/Pelvis CT 08/06/24 22:02 Exam(s): CT ABDOMEN + PELVIS With Contrast IV Amt: 93 ml EXAM: CT Abdomen and Pelvis With Intravenous Contrast CLINICAL HISTORY: Reason for exam: trauma, syncope, pain, fall. TECHNIQUE: Axial computed tomography images of the abdomen and pelvis with intravenous contrast. CTDI is 36.18 mGy and DLP is 3210.82 mGy-cm. Automated exposure control was utilized for the study. A dose lowering technique was utilized adhering to the principles of ALARA. CONTRAST: Patient received 93 ml of IV contrast COMPARISON: No relevant prior studies available. FINDINGS: Lung bases: Unremarkable. No mass. No consolidation. Pleural space: Moderate RIGHT and small LEFT pleural effusions. ABDOMEN: Liver: Unremarkable. No mass. Gallbladder and bile ducts: Unremarkable. No calcified stones. No ductal dilation. Pancreas: Unremarkable. No mass. No ductal dilation. Spleen: Unremarkable. No splenomegaly. Adrenals: Unremarkable. No mass. Kidneys and ureters: Unremarkable. No solid mass. No hydronephrosis. Stomach and bowel: Diverticulosis, without acute diverticulitis. No small bowel obstruction. No free intraperitoneal air. PELVIS: Appendix: No findings to suggest acute appendicitis. Bladder: Unremarkable. No mass. Reproductive: Hysterectomy. ABDOMEN and PELVIS: Intraperitoneal space: Unremarkable. No free air. No significant fluid collection. Bones/joints: Degenerative changes of the spine. No acute fracture. No dislocation. Soft tissues: Anasarca. Vasculature: Atherosclerotic changes of the aorta. No abdominal aortic aneurysm. Lymph nodes: Unremarkable. No enlarged lymph nodes. IMPRESSION: 1. Moderate RIGHT and small LEFT pleural effusions. 2. Hysterectomy. 3. Diverticulosis, without acute diverticulitis. No small bowel obstruction. No free intraperitoneal air. Electronically signed by: Oracio Kent MD 08/06/24 23:[address] 08/06/24 22:02 Exam(s): CT C SPINE EXAM: CT Cervical Spine Without Intravenous Contrast CLINICAL HISTORY: Reason for exam: trauma, syncope, pain, fall. TECHNIQUE: Axial computed tomography images of the cervical spine without intravenous contrast. CTDI is 36.18 mGy and DLP is 3210.82 mGy-cm. Automated exposure control was utilized for the study. A dose lowering technique was utilized adhering to the principles of ALARA. COMPARISON: No relevant prior studies available. FINDINGS: The vertebral body heights are maintained. The craniocervical junction is intact. The atlanto-dens interval is maintained. The dens is intact. There is no spondylolisthesis. Multilevel cervical spondylosis and degenerative disc disease. Straightening of the cervical lordosis. Small RIGHT pleural effusion. IMPRESSION: No acute fracture or subluxation of the cervical spine. Electronically signed by: Oracio Kent MD 08/06/24 23:[address] 08/06/24 22:02 Exam(s): CT CHEST With Contrast IV Amt: 93 ml EXAM: CT Chest With Intravenous Contrast CLINICAL HISTORY: trauma, syncope, pain, fall. TECHNIQUE: Axial computed tomography images of the chest with intravenous contrast. CTDI is 36.18 mGy and DLP is 3210.82 mGy-cm. Automated exposure control was utilized for the study. A dose lowering technique was utilized adhering to the principles of ALARA. CONTRAST: Patient received 93 ml of IV contrast COMPARISON: No relevant prior studies available. FINDINGS: Lungs: Mild bilateral dependent and compressive atelectasis. 1.6 x 1.2 cm noncalcified suspected mass in the right lower lobe. Pleural space: Right greater than left pleural effusions. No pneumothorax. Heart: No cardiomegaly. Trace pericardial effusion. Coronary artery calcifications. Bones/joints: Periosteal reaction and deformity of the partially visualized humeral head and scapula suggesting that subacute partially healed fracture. No acute fracture. Degenerative changes of the thoracic spine. 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 Soft tissues: Diffuse subcutaneous infiltration. Small hiatal hernia. Vasculature: Unremarkable. No thoracic aortic aneurysm. Lymph nodes: Scattered mediastinal lymph nodes, largest near the P1 and a 1.1 x 2 cm. IMPRESSION: No acute fracture. Periosteal reaction and deformity of the partially visualized humeral head and scapula suggesting that subacute partially healed fracture. Bilateral pleural effusions with associated minimal atelectasis. 1.6 x 1.2 cm noncalcified suspected mass in the right lower lobe. Nonspecific mediastinal lymph nodes. Senescent changes. Electronically signed by: Connor Ro M.D. 08/07/24 00:[address] 08/06/24 22:02 Exam(s): CT HEAD Without Contrast EXAM: CT Head Without Intravenous Contrast CLINICAL HISTORY: Reason for exam: trauma, syncope, pain, fall. TECHNIQUE: Axial computed tomography images of the head/brain without intravenous contrast. CTDI is 36.18 mGy and DLP is 3210.82 mGy-cm. Automated exposure control was utilized for the study. A dose lowering technique was utilized adhering to the principles of ALARA. COMPARISON: No relevant prior studies available. FINDINGS: No acute intracranial hemorrhage. No midline shift or mass effect. The territorial bustamante-white matter differentiation is maintained throughout. Age-related cerebral volume loss. Periventricular and subcortical white matter hypoattenuation, consistent with chronic microangiopathy. The visualized orbits appear grossly unremarkable. The calvarium is intact. The visualized paranasal sinuses and mastoid air cells are grossly clear. IMPRESSION: No acute intracranial hemorrhage, midline shift, or mass effect. Electronically signed by: Oracio Kent MD 08/06/24 23:42 PM
[2024-08-07] MEDS: METOPROLOL SUCC 50MG EXT REL TAB PO SCH (10:40)
--- NOTE | 2024-08-07 12:05 | Hospitalist Progress Note ---
Date of Service August 07, 2024 Assessment & Plan (1) Syncope and collapse: Plan: Due to hypoglycemia (2) Acute on chronic heart failure with preserved ejection fraction: (3) Acute blood loss anemia: (4) Hypoglycemia associated with diabetes: (5) Upper gastrointestinal bleed: (6) Atrial fibrillation: (7) Type 2 diabetes mellitus: (8) Non-traumatic rhabdomyolysis: Plan Patient remains critically ill with multiple medical issues that have decompensated including heart failure, blood loss anemia, hypoglycemia, atrial fibrillation. Patient is at high risk for further decompensation. She needs monitoring, specialty intervention and medical interventions. Reviewed cardiology recommendations Reviewed GI recommendations Continue IV diuresis Continue to monitor hemoglobin transfuse as needed Patient's hemoglobin A1c is 5.0%, patient may not need any insulin going home to avoid hypoglycemia. Will continue to monitor here in the hospital CPK elevated most likely nontraumatic rhabdomyolysis from immobility TSH only slightly elevated, free T4 normal will continue to monitor at this point Continue Protonix drip Anticipate EGD in morning Continue to monitor daily weights and intake and output Admission and Anticipated Discharge Date Admission Date: August 07, 2024 Subjective Patient reports that she is feeling better when compared to her presentation to the ED. Complains of leg pain most likely due to the excessive swelling. Physical Exam Physical Exam: Constitutional: Alert, nontoxic, no acute distress HEENT: Mucous membranes moist. Lungs: Decreased breath sounds, diffuse crackles CV: S1-S2, irregularly irregular Abdomen: Soft, nontender, nondistended Extremities: Thick hard edema up through the thighs and sacrum Neuro: No focal deficits, peripheral neuropathy Psych: Cooperative, normal mood Results & Data Results & Data Vital Signs (Past 12 Hours) Vital Signs Temp Pulse Pulse Resp BP Pulse Ox O2 Del Method 08/07/24 11:47 36.6 C 101 H 19 144/57 H 95 Room Air 08/07/24 10:00 Room Air 08/07/24 08:00 36.6 C 104 H 20 115/66 96 Room Air 08/07/24 05:55 108 H 08/07/24 03:09 36.5 C 76 20 108/59 L 98 Room Air 08/07/24 02:52 36.5 C 74 24 108/59 L 97 Room Air 08/07/24 02:52 Room Air 08/07/24 02:16 36.7 C 87 18 112/63 98 Room Air 08/07/24 00:52 94 H 08/07/24 00:06 89 18 117/51 L 98 Room Air Diagnostic Findings Reviewed imaging, laboratory and diagnostic studies. Pertinent findings as below. Hemoglobin 8.6 INR 1.6 Glucose 132 Hemoglobin A1c 5.0% Iron 17 CPK 1196 TSH 4.6 Creatinine 1.06 Critical Care Time 45 minutes spent on reviewing record, care of patient at bedside, communication with staff and specialists and family. (6) Atrial fibrillation Atrial fibrillation type: unspecified Qualified Code(s): I48.91 - Unspecified atrial fibrillation
[2024-08-07 15:34] LABS: Hematocrit (blood only) 29.6 % (37.0-47.0)
[2024-08-07] MEDS ORDERED: ONDANSETRON INJ 2 MG/ML 2 ML VIAL ONE (20:42)
[2024-08-07] MEDS: LATANOPROST 0.005% OP SOLN 2.5 ML BTL OP SCH (21:31)
[2024-08-08] MEDS: cefTRIAXone SODIUM 2,000 MG/50 ML BAG IV SCH (05:52)
[2024-08-08 06:24] LABS: Hematocrit (blood only) 27.5 % (37.0-47.0); Hemoglobin 8.8 g/dl (12.0-16.0); Mean Corpuscular Hemoglobin 26.4 pg (25.0-34.0); Mean Corpuscular Volume 82.6 fL (80.0-100.0); Mean Platelet Volume 10.4 fL (9.4-12.4); Platelet Count 207 K/uL (130-400); RDW Coefficient of Variation 15.3 % (11.5-14.5); RDW Standard Deviation 46.5 fL (36.4-46.3); Red Blood Count 3.33 M/uL (4.20-5.40); White Blood Count 9.05 K/ul (4.8-10.8)
[2024-08-08 07:02] LABS: BUN Creatinine Ratio 34.7 (10-20); Calcium 8.7 mg/dl (8.6-10.3); Creatinine Clr Calc Pharmacy 44.2 ml/min; Magnesium 1.8 mg/dl (1.7-2.4); Phosphorus 4.8 mg/dl (2.5-4.9); Potassium 4.1 mmol/L (3.5-5.1)
--- NOTE | 2024-08-08 07:13 | Anesthesiology Consultation ---
Date of Service August 08, 2024 Assessment & Plan (1) Encounter for pre-operative examination: Chart Review Chart Review: Acceptable Risk for Surgery History Surgery Operation Date: 08/08/24 08:30 Proposed Procedures p EGD Hemostasis - Sahil Murdock Jr, MD Height/Weight Height: 5 ft 2 in Weight: 105.8 kg Allergies Allergy/AdvReac Type Severity Reaction Status Date / Time amoxicillin Allergy Mild RASH,ITCHIN Verified 08/07/24 01:22 G adhesive tape Allergy Unknown rash with Verified 08/07/24 01:35 bandaids & all tape except Paper Medications Home Medications Medication Instructions Recorded Confirmed Last Taken acetaminophen 500 mg capsule 1,000 mg PO DAILY PRN Pain 08/07/24 08/07/24 08/06/24 08:00 albuterol sulfate 90 mcg/actuation 2 puff inhalation Q4H PRN SOB 08/07/24 08/07/24 08/06/24 07:00 aerosol inhaler apixaban 5 mg tablet (Eliquis) 5 mg PO BID 08/07/24 08/07/24 08/06/24 08:00 ascorbic acid (vitamin C) 500 mg 500 mg PO DAILY 08/07/24 08/07/24 08/06/24 08:00 tablet (Vitamin C) aspirin 81 mg capsule 81 mg PO DAILY 08/07/24 08/07/24 08/06/24 08:00 blood-glucose meter (OneTouch 08/07/24 08/07/24 Unknown Ultra2 Meter) cholecalciferol (vitamin D3) 25 25 mcg PO DAILY 08/07/24 08/07/24 08/06/24 08:00 mcg (1,000 unit) capsule (Vitamin D3) cyanocobalamin (vitamin B-12) 1,000 mcg PO QAM 08/07/24 08/07/24 08/06/24 08:00 1,000 mcg tablet insulin aspar prot-insulin aspart See Rx Instructions .Route .COMPLEX 08/07/24 08/07/24 08/06/24 08:00 100 unit/mL (70-30) subcutaneous pen (Novolog Mix 70-30FlexPen U-100) latanoprost 0.005 % eye drops 1 drp ophthalmic (eye) HS 08/07/24 08/07/24 08/05/24 20:00 lisinopril 0 mg PO DAILY 08/07/24 08/07/24 Unknown lovastatin 10 mg tablet 10 mg PO PM 08/07/24 08/07/24 Unknown mecobalamin (vitamin B12) 1,000 1,000 mcg PO DAILY 08/07/24 08/07/24 08/06/24 08:00 mcg chewable tablet (B12 Active) metoprolol succinate 100 mg 100 mg PO QAM 08/07/24 08/07/24 08/06/24 08:00 tablet,extended release 24 hr omeprazole 20 mg capsule,delayed 20 mg PO QAM 08/07/24 08/07/24 08/06/24 08:00 release Active Medications Generic Name Dose Route Start Last Admin Trade Name Freq PRN Reason Stop Dose Admin Acetaminophen 650 mg 08/07/24 01:42 08/07/24 16:47 Acetaminophen 325 Mg Tab PO 09/06/24 01:41 650 mg QID PRN Administration pain/fever Cyanocobalamin 1,000 mcg 08/07/24 09:00 08/07/24 09:50 Cyanocobalamin (B-12) 500 Mcg Tablet PO 09/06/24 08:59 1,000 mcg QAM COOKIE Administration Furosemide 40 mg 08/07/24 09:00 08/07/24 20:09 Furosemide 40 Mg/4 Ml Vial IV 08/08/24 08:59 40 mg BID COOKIE Administration Ceftriaxone Sodium 2,000 mg in 50 mls @ 100 mls/hr 08/08/24 06:00 08/08/24 06:27 Rocephin IV 08/18/24 05:59 Infused Q24H COOKIE Infusion Pantoprazole Sodium 40 mg/ 100 mls @ 20 mls/hr 08/07/24 04:00 08/08/24 06:27 Dextrose IV 09/06/24 03:59 8 mg/hr Q5H COOKIE 20 mls/hr Administration 8 MG/HR Insulin Aspart 0 units 08/07/24 07:30 08/07/24 20:08 Insulin Aspart Per Unit Charge SC 09/06/24 07:29 6 units ACHS COOKIE Administration Latanoprost 1 drops 08/07/24 21:00 08/07/24 21:31 Latanoprost 0.005% Op Soln 2.5 Ml Btl OP 09/06/24 20:59 1 drops HS COOKIE Administration Metoprolol Succinate 50 mg 08/07/24 09:00 08/07/24 10:40 Metoprolol Succ 50mg Ext Rel Tab PO 09/06/24 08:59 50 mg QAM COOKIE Administration Past Medical History Medical History (Updated 08/08/24 @ 07:18 by Kin Jasso MD) Acute blood loss anemia Non-traumatic rhabdomyolysis Acute on chronic heart failure with preserved ejection fraction Hypoglycemia associated with diabetes Atrial fibrillation Syncope Hyperlipidemia Hypertension Type 2 diabetes mellitus Past Family History Family History (Updated 08/08/24 @ 07:16 by Kin Jasso MD) Other Diabetes Parkinsons Past Surgical History Surgical History (Updated 08/08/24 @ 07:15 by Kin Jasso MD) History of bladder suspension procedure History of tonsillectomy and adenoidectomy Hx of hysterectomy Social History Smoking Status: Former smoker Do You Dip or Chew Tobacco: No Smoking End Date: 1998 Hx Alcohol Use: No Hx Substance Use: No substance use type: does not use Physical Exam Vital Signs Last Vital Signs Temp 36.5 C 08/08/24 02:42 Pulse 87 08/08/24 02:42 Resp 19 08/08/24 02:42 BP 108/66 08/08/24 02:42 Pulse Ox 94 08/08/24 02:42 O2 Del Method Room Air 08/08/24 02:42 Testing Laboratory Results 08/08/24 06:06 08/08/24 06:06 PT 16.9 Seconds (9.0-12.0) H 08/06/24 23:03 INR 1.6 (0.9-1.1) H 08/06/24 23:03 Hemoglobin A1c 5.0 % (4.5-5.6) 08/07/24 02:31 Urine Color Yellow 08/07/24 00:05 Urine Appearance Clear (Clear) 08/07/24 00:05 Urine pH 5.0 (4.5-7.5) 08/07/24 00:05 Ur Specific [place] 1.038 (1.000-1.030) H 08/07/24 00:05 Urine Protein Trace (Negative) H 08/07/24 00:05 Urine Glucose (UA) Negative (Negative) 08/07/24 00:05 Urine Ketones Trace (Negative) H 08/07/24 00:05 Urine Nitrite Positive (Negative) A 08/07/24 00:05 Ur Leukocyte Esterase Trace (Negative) H 08/07/24 00:05 Urine WBC (Auto) 0-5 /hpf (0-5) 08/07/24 00:05 Urine RBC (Auto) 0-2 /hpf (0-2) 08/07/24 00:05 U Hyaline Cast (Auto) 0-2 /lpf (0-2) 08/07/24 00:05 U Epithel Cells (Auto) 0-2 /hpf (0-2) 08/07/24 00:05 Urine Bacteria (Auto) 3+ (None Seen) H 08/07/24 00:05 Blood Type A Positive 08/07/24 02:31 Antibody Screen NEGATIVE 08/07/24 02:31 08/07/24 19:53 POC Glucose 290 H Electrocardiogram Date: 08/06/24 Findings: + AFIB @ (84) Chest X-Ray Date: 08/06/24 Findings: + intestinal edema and + cardiomegaly Echocardiogram per cardiology note echo from other facility showed nl EF 55-60%, mild MR, diastolic dysfunction
[2024-08-08] MEDS ORDERED: fentaNYL citrate PF 100 MCG/2 ML VIAL ONE (07:19)
[2024-08-08] MEDS ORDERED: LIDOCAINE 2% 2 ML VIAL/AMP(20MG/ML) INFIL ONE (07:19)
[2024-08-08] MEDS ORDERED: SUCCINYLCHOLINE CHLORIDE 20 MG/ML 10 ML VIAL IV ONE (07:19)
[2024-08-08] MEDS ORDERED: PROPOFOL IV EMULSION 10 MG/ML 20 ML VIAL IV ONE (07:19)
[2024-08-08] MEDS ORDERED: ONDANSETRON INJ 2 MG/ML 2 ML VIAL ONE (07:19)
--- NOTE | 2024-08-08 08:12 | History & Physical Report ---
Date of Service August 08, 2024 Assessment & Plan (1) Encounter for pre-operative examination: Plan: Pleasant woman with melena. Procedure and risks discussed. She agrees Admission and Anticipated Discharge Date Admission Date: August 07, 2024 History of Present Illness Chief Complaint: melena Primary Care Provider: Emy Hawk DO 79 year old female admitted with syncope reports several days of melena Allergies Allergy/AdvReac Type Severity Reaction Status Date / Time amoxicillin Allergy Mild RASH,ITCHIN Verified 08/07/24 01:22 G adhesive tape Allergy Unknown rash with Verified 08/07/24 01:35 bandaids & all tape except Paper Home Medications Medication Instructions Recorded Confirmed Type acetaminophen 500 mg capsule 1,000 mg PO DAILY PRN Pain 08/07/24 08/07/24 History albuterol sulfate 90 mcg/actuation 2 puff inhalation Q4H PRN SOB 08/07/24 08/07/24 History aerosol inhaler apixaban 5 mg tablet (Eliquis) 5 mg PO BID 08/07/24 08/07/24 History ascorbic acid (vitamin C) 500 mg 500 mg PO DAILY 08/07/24 08/07/24 History tablet (Vitamin C) aspirin 81 mg capsule 81 mg PO DAILY 08/07/24 08/07/24 History blood-glucose meter (OneTouch 08/07/24 08/07/24 History Ultra2 Meter) cholecalciferol (vitamin D3) 25 25 mcg PO DAILY 08/07/24 08/07/24 History mcg (1,000 unit) capsule (Vitamin D3) cyanocobalamin (vitamin B-12) 1,000 mcg PO QAM 08/07/24 08/07/24 History 1,000 mcg tablet insulin aspar prot-insulin aspart See Rx Instructions .Route .COMPLEX 08/07/24 08/07/24 History 100 unit/mL (70-30) subcutaneous pen (Novolog Mix 70-30FlexPen U-100) latanoprost 0.005 % eye drops 1 drp ophthalmic (eye) HS 08/07/24 08/07/24 History lisinopril 0 mg PO DAILY 08/07/24 08/07/24 History lovastatin 10 mg tablet 10 mg PO PM 08/07/24 08/07/24 History mecobalamin (vitamin B12) 1,000 1,000 mcg PO DAILY 08/07/24 08/07/24 History mcg chewable tablet (B12 Active) metoprolol succinate 100 mg 100 mg PO QAM 08/07/24 08/07/24 History tablet,extended release 24 hr omeprazole 20 mg capsule,delayed 20 mg PO QAM 08/07/24 08/07/24 History release Past Med/Surg History Problem List Encounter for pre-operative examination Upper gastrointestinal bleed Anemia Syncope and collapse CHF (congestive heart failure) Elevated CPK (Acute) On apixaban therapy (Acute) Pleural effusion (Acute) Medical History Acute blood loss anemia Non-traumatic rhabdomyolysis Acute on chronic heart failure with preserved ejection fraction Hypoglycemia associated with diabetes Atrial fibrillation Syncope Hyperlipidemia Hypertension Type 2 diabetes mellitus Surgical History History of bladder suspension procedure History of tonsillectomy and adenoidectomy Hx of hysterectomy Family History Other Diabetes Parkinsons Social History Smoking Status: Former smoker Tobacco Type: Cigarettes Smoking End Date: 1998; Second Hand Exposure: No; Do You Dip or Chew Tobacco: No; Tobacco Cessation Education Requested by Patient: No Hx Alcohol Use: No Hx Substance Use: No Preferred Language: Hungarian Communication Ability: Effective Is Architect Required: No Beliefs That Will Affect Care: None Current Living Situation: Family Current Living Situation Comment: lives with son Other Information That Helps Us Care for You: No Feels Safe at Home: Yes Safety Concerns: Feels Safe At This Time Assistive Devices: Cane, Glasses and Walker Review of Systems All systems reviewed & are unremarkable except as noted in HPI & below Physical Exam Constitutional: WD/WN, vitals as above Respiratory: normal respiratory effort, lungs clear to auscultation Cardiovascular: RRR, no murmur, no edema Gastrointestinal (Abdomen): normal bowel sounds, soft, nontender, no hepatosplenomegaly ASA Classification ASA ASA3 Results & Data Vital Signs (Past 12 Hours) Vital Signs Temp Pulse Resp BP Pulse Ox O2 Del Method 08/08/24 07:41 36.9 C 97 H 20 149/76 H 94 Room Air 08/08/24 02:42 36.5 C 87 19 108/66 94 Room Air Code Status & VTE Plan VTE Prophylaxis Plan VTE Prophylaxis will be ordered: Yes
[2024-08-08] MEDS ORDERED: fentaNYL citrate PF 100 MCG/2 ML VIAL IV PRN (08:14)
[2024-08-08] MEDS ORDERED: ONDANSETRON INJ 2 MG/ML 2 ML VIAL IV PRN (08:14)
[2024-08-08] MEDS ORDERED: ATROPINE SULFATE 0.1 MG/ML 10ML SYR IV PRN (08:14)
--- NOTE | 2024-08-08 08:29 | GI REPORT ---
[facility] Patient: KHANH KIRAN : 1945 Sex at : Female Age: 79 Years Procedure: Upper GI endoscopy Date: 08/08/2024 Attending Physician: Sahil Murdock MD Referring MD: Referred Self Indications: - Suspected upper gastrointestinal bleeding Medications: - Monitored Anesthesia Care - Propofol per Anesthesia - See the Anesthesia note for documentation of the administered medications Complications: - No immediate complications. Estimated Blood Loss: - Estimated blood loss: None. Procedure: - ASA Grade Assessment: III - A patient with severe systemic disease. - The egd scope was introduced through the mouth and advanced to the second part of the duodenum. - The upper GI endoscopy was accomplished without difficulty. - The patient tolerated the procedure well. Findings: - The examined esophagus was normal. - Diffuse moderate inflammation characterized by erosions and erythema was found in the gastric body. - The exam of the stomach was otherwise normal. - The examined duodenum was normal. Impression: - Normal esophagus. - Gastritis, characterized by erosions and erythema. - Normal examined duodenum. - No specimens collected. Recommendation: - Return patient [facility] for [facility]. Procedure Code(s): - 74940, Esophagogastroduodenoscopy, flexible, transoral; diagnostic, including collection of specimen(s) by brushing or washing, when performed (separate procedure) Diagnosis Code(s): - K29.70, Gastritis, unspecified, without bleeding CPT(R) - 2023 copyright [employer]. All Rights Reserved. The CPT codes, CCI edits and ICD codes generated are intended as suggestions and were generated based on input data. These codes are preliminary and upon structural steel erector review may be revised to meet current compliance and payer requirements. The provider is responsible for the final determination of appropriate codes, and modifiers. Dr. Sahil Murdock MD This document has been electronically signed. Note Initiated:08/08/2024 Note Completed:08/08/2024 8:28 AM \\[id number]
--- NOTE | 2024-08-08 08:49 | Anesthesiology Progress Note ---
Date of Service August 08, 2024 Anesthesia Post Procedure Vital Signs Vital Signs: Temp Pulse Pulse Pulse Resp BP Pulse Ox 08/08/24 08:40 36.6 C 84 20 162/88 H 95 08/08/24 08:30 36.2 C L 95 H 12 138/68 100 08/08/24 07:41 36.9 C 97 H 20 149/76 H 94 08/08/24 02:42 36.5 C 87 19 108/66 94 08/07/24 20:00 08/07/24 19:05 36.6 C 90 20 108/71 96 08/07/24 15:49 36.7 C 95 H 19 112/62 92 08/07/24 13:50 101 H 08/07/24 11:47 36.6 C 101 H 19 144/57 H 95 08/07/24 10:00 O2 Del Method O2 Flow Rate 08/08/24 08:40 Room Air 08/08/24 08:30 Oxymask 6 08/08/24 07:41 Room Air 08/08/24 02:42 Room Air 08/07/24 20:00 Room Air 08/07/24 19:05 Room Air 08/07/24 15:49 Room Air 08/07/24 13:50 08/07/24 11:47 Room Air 08/07/24 10:00 Room Air Pain Intensity Generalized: Pain Intensity: 3 Transfer of Care Handoff Completed per policy Notes Mental Status: alert / awake / arousable Patient Amnestic to Procedure: Yes Nausea / Vomiting: adequately controlled Pain: adequately controlled Airway Patency, RR, SpO2: stable & adequate BP & HR: stable & adequate Hydration State: stable & adequate Anesthetic Complications: no major complications apparent
--- NOTE | 2024-08-08 11:48 | Hospitalist Progress Note ---
Date of Service August 08, 2024 Assessment & Plan (1) Syncope and collapse: Plan: Due to hypoglycemia (2) Acute on chronic heart failure with preserved ejection fraction: (3) Acute blood loss anemia: (4) Hypoglycemia associated with diabetes: (5) Upper gastrointestinal bleed: (6) Atrial fibrillation: (7) Type 2 diabetes mellitus: (8) Non-traumatic rhabdomyolysis: (9) UTI (urinary tract infection): (10) Multiple gastric erosions: (11) Gastritis: Plan Patient presented with syncope most likely due to hypoglycemia which subsequently decompensated multiple other issues including heart failure, atrial fibrillation. Also noted to have acute on chronic anemia. Patient underwent EGD today, showing gastritis with erosions Transition to oral Protonix twice daily Continue IV diuretics today then transition to oral Lasix tomorrow Increase Toprol to her home dose of 100 mg daily for better blood pressure and rate control Continue to monitor glucose and use insulin sliding scale, may need a much red uced dose of insulin at discharge Encouraged activity Monitor laboratory studies in the a.m. Communication with GI from their standpoint able to restart anticoagulation at our discretion. Would recommend PPI for 7 days then resume Eliquis. Phone conversation with patient's daughter. Updated to patient's seizure today, condition and anticipated plans for discharge tomorrow. Admission and Anticipated Discharge Date Admission Date: August 07, 2024 Subjective Patient seen status post EGD. Denies chest pain or shortness of breath. No abdominal pain. Physical Exam Physical Exam: Constitutional: Alert HEENT: Mucous membranes moist. Lungs: Decreased breath sounds, few crackles at bases CV: S1-S2, irregular Abdomen: Soft, nontender, nondistended, yeasty excoriations and abdominal pannus folds Extremities: Decreased edema Neuro: No focal deficits Psych: Cooperative, normal mood Results & Data Results & Data Vital Signs (Past 12 Hours) Vital Signs Temp Pulse Pulse Resp BP Pulse Ox O2 Del Method 08/08/24 11:00 37 C 98 H 20 142/71 H 96 Nasal Cannula 08/08/24 10:45 37.0 C 95 H 19 157/82 H 96 Nasal Cannula 08/08/24 10:30 36.6 C 103 H 20 159/79 H 97 Nasal Cannula 08/08/24 10:15 36.8 C 105 H 19 144/99 H 96 Nasal Cannula 08/08/24 10:00 87 17 163/68 H 96 Nasal Cannula 08/08/24 09:30 101 H 18 153/68 H 93 Room Air 08/08/24 09:00 98 H 18 145/76 H 93 Room Air 08/08/24 08:50 92 H 20 148/78 H 93 Room Air 08/08/24 08:40 36.6 C 84 20 162/88 H 95 Room Air 08/08/24 08:30 36.2 C L 95 H 12 138/68 100 Oxymask 08/08/24 07:41 36.9 C 97 H 20 149/76 H 94 Room Air 08/08/24 02:42 36.5 C 87 19 108/66 94 Room Air O2 Flow Rate 08/08/24 11:00 2 08/08/24 10:45 2.0 08/08/24 10:30 2.0 08/08/24 10:15 2.0 08/08/24 10:00 2 08/08/24 09:30 08/08/24 09:00 08/08/24 08:50 08/08/24 08:40 08/08/24 08:30 6 08/08/24 07:41 08/08/24 02:42 Diagnostic Findings Reviewed imaging, laboratory and diagnostic studies. Pertinent findings as below. Reviewed EGD report, gastritis with erosions Hemoglobin 8.8 Electrolytes stable Creatinine 1.1 Glucose 165 Urine culture growing gram-negative bacilli (6) Atrial fibrillation Atrial fibrillation type: unspecified Qualified Code(s): I48.91 - Unspecified atrial fibrillation
--- NOTE | 2024-08-08 11:50 | Cardiology Progress Note ---
Date of Service August 08, 2024 Assessment & Plan (1) CHF (congestive heart failure): (2) Atrial fibrillation: (3) Syncope and collapse: Plan Syncope secondary to hypoglycemia. Acute decompensated diastolic congestive heart failure, HFpEF. Prior to arrival diuretic was HCTZ 12.5 mg/day Recommend furosemide 40 mg IV twice per day 20 mEq's of oral potassium chloride today Daily metabolic panels Consider addition of spironolactone Hold LELO inhibitor for now, Re: Hypotension. Refer for resting echocardiography Atrial fibrillation. Echo at [facility] [address] in May with severely dilated left atrium Recommend rate control strategy Prior to arrival metoprolol dosing per chart review was 100 mg/day Continue metoprolol succinate 50 mg/day for now, reconsidering titration after diuresis Maintain telemetry [id number] Score 7 points. Resume Eliquis anticoagulation when determined to be safe from a GI standpoint. Discontinue aspirin 81 mg/day Avoid NSAID's. Mild rhabdomyolysis. Holding statin for now, eventually switching from lovastatin to atorvastatin 40 mg/day Admission and Anticipated Discharge Date Admission Date: August 07, 2024 Supervising Physician Co-Signing Physician Notes I spent a total of 30 minutes on the date of service in preparation, delivery, and documentation of the care provided to this patient, excluding any time spent in the performance of separately billed services. I have personally performed a history and physical examination on the patient. I have reviewed the advance practitioner's documentation, and I agree with, and take responsibility for the plan of care. Subjective Patient seen and examined. Chart, medications, telemetry reviewed Complaints: Shortness of breath, diffuse fluid retention. No chest pain. No palpitations. Telemetry: Atrial fibrillation with heart rates predominantly in the 80 to 100 bpm range. Review of Systems Review of Systems: Complete Review of Systems is as stated above, negative, or noncontributory Physical Exam Physical Exam: General: A&Ox3. NAD. HENT: Normocephalic. Atraumatic. Eyes: PER. Conjunctiva pink, sclera clear. Neck: Unable to visualize neck veins. Heart: Irregularly irregular at 88 bpm. No murmur. Lungs: Absent breath sounds at the right base. Diminished a the left base. No wheeze. Abdomen: +BS. Soft. Nontender. No masses or organomegaly. Locke catheter in place Extremities: 1-2+ diffuse edema. Limited neurological examination is without focal deficits. Pulses: radial=1/4, posterior tibial=0/4. Results & Data Vital Signs (Past 12 Hours) Vital Signs Temp Pulse Pulse Resp BP Pulse Ox O2 Del Method 08/08/24 11:00 37 C 98 H 20 142/71 H 96 Nasal Cannula 08/08/24 10:45 37.0 C 95 H 19 157/82 H 96 Nasal Cannula 08/08/24 10:30 36.6 C 103 H 20 159/79 H 97 Nasal Cannula 08/08/24 10:15 36.8 C 105 H 19 144/99 H 96 Nasal Cannula 08/08/24 10:00 87 17 163/68 H 96 Nasal Cannula 08/08/24 09:30 101 H 18 153/68 H 93 Room Air 08/08/24 09:00 98 H 18 145/76 H 93 Room Air 08/08/24 08:50 92 H 20 148/78 H 93 Room Air 08/08/24 08:40 36.6 C 84 20 162/88 H 95 Room Air 08/08/24 08:30 36.2 C L 95 H 12 138/68 100 Oxymask 08/08/24 07:41 36.9 C 97 H 20 149/76 H 94 Room Air 08/08/24 02:42 36.5 C 87 19 108/66 94 Room Air O2 Flow Rate 08/08/24 11:00 2 08/08/24 10:45 2.0 08/08/24 10:30 2.0 08/08/24 10:15 2.0 08/08/24 10:00 2 08/08/24 09:30 08/08/24 09:00 08/08/24 08:50 08/08/24 08:40 08/08/24 08:30 6 08/08/24 07:41 08/08/24 02:42 Laboratory Results CBC 08/07/24 08/08/24 Range/Units 15:13 06:06 WBC 9.05 (4.8-10.8) K/ul RBC 3.33 L (4.20-5.40) M/uL Hgb 9.0 L 8.8 L (12.0-16.0) g/dl Hct 29.6 L 27.5 L (37.0-47.0) % Plt Count 207 (130-400) K/uL Comprehensive Metabolic Panel 08/08/24 Range/Units 06:06 Sodium 137 (136-145) mmol/L Potassium 4.1 (3.5-5.1) mmol/L Chloride 101 (98-107) mmol/L Carbon Dioxide 29 (21-32) mmol/L BUN 41 H (6-23) mg/dl Creatinine 1.18 (0.6-1.2) mg/dl Glucose 140 H (70-99(Fasting)) mg/dl Calcium 8.7 (8.6-10.3) mg/dl Intake and Output 08/07/24 08/08/24 08/08/24 22:59 06:59 14:59 Intake Total 250 / 1378 350 / 1378 195.333 / 195.333 Output Total 700 / 3325 875 / 3325 200 / 200 Balance -450 / -1947 -525 / -1947 -4.667 / -4.667 Intake: IV 100 / 528 250 / 528 95.333 / 95.333 PANTOprazole 40 mg In Dextrose 100 / 478 200 / 478 95.333 / 95.333 5% Mini-B 100 ml @ 8 MG/HR 20 mls/hr IV Q5H [facility] Rx#:[id number] cefTRIAXone SODIUM 2,000 mg In 50 / 50 50 ml @ 100 mls/hr IV Q24H [facility] Rx#:[id number] IV Perioperative 100 / 100 Oral 150 / 850 100 / 850 Output: Estimated Blood Loss 0 / 0 Urine Amount (Catheter) 700 / 3325 875 / 3325 200 / 200 Locke/Indwelling 700 / 3325 875 / 3325 200 / 200 Other: Other Intake Source completed 0540 Weight 105.8 kg 105.8 kg Weight Measurement Method [facility] Patient Weight 08/09/24 06:59 Weight 105.8 kg (2) Atrial fibrillation Atrial fibrillation type: unspecified Qualified Code(s): I48.91 - Unspecified atrial fibrillation
[2024-08-08] MEDS: FUROSEMIDE 40 MG/4 ML VIAL IV ONE (12:42)
[2024-08-08] MEDS: NYSTATIN POWDER 15GM BTL EXT SCH (12:43)
[2024-08-08] MEDS: METOPROLOL SUCC 50MG EXT REL TAB PO ONE (12:43)
[2024-08-08] MEDS: FUROSEMIDE 40 MG/4 ML VIAL IV SCH (12:45)
[2024-08-08] MEDS: POTASSIUM CHLORIDE CRTAB 20 MEQ TABCR PO ONE (12:47)
[2024-08-08] MEDS: PANTOprazole 40 MG TAB PO SCH (21:01)
[2024-08-09 06:25] LABS: Hematocrit (blood only) 27.6 % (37.0-47.0); Hemoglobin 8.6 g/dl (12.0-16.0); Mean Corpuscular Hemoglobin 25.7 pg (25.0-34.0); Mean Corpuscular Hgb Conc 31.2 g/dL (32.0-36.0); Mean Corpuscular Volume 82.6 fL (80.0-100.0); Mean Platelet Volume 10.3 fL (9.4-12.4); Platelet Count 202 K/uL (130-400); RDW Coefficient of Variation 15.1 % (11.5-14.5); RDW Standard Deviation 45.9 fL (36.4-46.3); Red Blood Count 3.34 M/uL (4.20-5.40); White Blood Count 10.46 K/ul (4.8-10.8)
[2024-08-09 06:44] LABS: BUN Creatinine Ratio 36.6 (10-20); Calcium 8.6 mg/dl (8.6-10.3); Creatinine Clr Calc Pharmacy 45.8 ml/min; Potassium 3.6 mmol/L (3.5-5.1)
[2024-08-09] MEDS: SPIRONOLACTONE 12.5 MG TAB PO SCH (08:03)
[2024-08-09] MEDS: POTASSIUM CHLORIDE CRTAB 20 MEQ TABCR PO ONE (08:03)
[2024-08-09] MEDS: METOPROLOL SUCC 50MG EXT REL TAB PO SCH (08:04)
[2024-08-09] MEDS ORDERED: FUROSEMIDE 40 MG TAB PO SCH (09:00)
--- NOTE | 2024-08-09 10:17 | Cardiology Progress Note ---
Date of Service August 09, 2024 Assessment & Plan (1) CHF (congestive heart failure): (2) Syncope and collapse: Plan Admission with syncope secondary to hypoglycemia. Acute decompensated diastolic congestive heart failure, HFpEF. Prior to arrival diuretic was HCTZ 12.5 mg/day Continue IV furosemide at least through today Supplement potassium orally Add low dose spironolactone Resume low dose LLEO inhibition. ? Future use of SGLT2 inhibitor Atrial fibrillation. Echo at [facility] in May with severely dilated left atrium, moderately dilated via TTE here. Recommend rate control strategy Prior to arrival metoprolol dosing per chart review was 100 mg/day [id number] Score 7 points. Resume Eliquis anticoagulation when determined to be safe from a GI standpoint. Discontinue aspirin 81 mg/day Avoid NSAID's. Dyslipidemia. Mild rhabdomyolysis noted on admission post fall. Recommend switching to atorvastatin 40 mg/day Admission and Anticipated Discharge Date Admission Date: August 07, 2024 Supervising Physician Co-Signing Physician Notes Patient was seen and personally examined. Full assessment and plan as per advanced provider. Care and management discussed in detail and personally endorsed Patient still examines with significant right heart failure with presacral edema. Is responding to diuretics 7 kg weight loss Would continue IV diuretics, spironolactone I spent a total of 20 minutes on the date of service in preparation, delivery, and documentation of the care provided to this patient, excluding any time spent in the performance of separately billed services. Subjective Patient seen and examined. Chart, medications, telemetry reviewed Improved fluid retention. I/O's negative almost 3 L the last two day. No chest pain. No palpitations. Telemetry: Atrial fibrillation with heart rates predominantly in the 80-90's. Review of Systems Review of Systems: Complete Review of Systems is as stated above, negative, or noncontributory Physical Exam Physical Exam: General: A&Ox3. NAD. HENT: Normocephalic. Atraumatic. Eyes: PER. Conjunctiva pink, sclera clear. Neck: Unable to visualize neck veins. Heart: Irregularly irregular at 84 bpm. No murmur. Lungs: Absent breath sounds at the right base. Diminished a the left base. No wheeze. Abdomen: +BS. Soft. Nontender. No masses or organomegaly. Locke catheter in place Extremities: 1+ diffuse edema. Limited neurological examination is without focal deficits. Pulses: radial=1/4, posterior tibial=0/4. Results & Data Vital Signs (Past 12 Hours) Vital Signs Temp Pulse Resp BP Pulse Ox O2 Del Method O2 Flow Rate 08/09/24 08:00 Nasal Cannula 08/09/24 07:23 36.4 C L 82 18 138/77 97 Nasal Cannula 08/09/24 03:13 36.7 C 87 18 124/60 97 Nasal Cannula 2 08/08/24 22:50 36.7 C 82 20 147/71 H 99 Nasal Cannula 2 Laboratory Results CBC 08/09/24 Range/Units 05:30 WBC 10.46 (4.8-10.8) K/ul RBC 3.34 L (4.20-5.40) M/uL Hgb 8.6 L (12.0-16.0) g/dl Hct 27.6 L (37.0-47.0) % Plt Count 202 (130-400) K/uL Comprehensive Metabolic Panel 08/09/24 Range/Units 05:30 Sodium 138 (136-145) mmol/L Potassium 3.6 (3.5-5.1) mmol/L Chloride 100 (98-107) mmol/L Carbon Dioxide 31 (21-32) mmol/L BUN 41 H (6-23) mg/dl Creatinine 1.12 (0.6-1.2) mg/dl Glucose 149 H (70-99(Fasting)) mg/dl Calcium 8.6 (8.6-10.3) mg/dl Intake and Output 08/08/24 08/09/24 08/09/24 22:59 06:59 14:59 Intake Total 350 / 1055.333 250 / 1055.333 Output Total 1199 Balance -850 / -994.667 250 / -994.667 Intake: IV 50 / 165.333 cefTRIAXone SODIUM 2,000 mg In 50 / 50 50 ml @ 100 mls/hr IV Q24H [facility] Rx#:[id number] Oral 350 / 790 200 / 790 Output: Urine Amount (Catheter) 1199 Locke/Indwelling 1199 Other: Weight 102.9 kg Weight Measurement Method Built in [facility]
--- NOTE | 2024-08-09 11:20 | Gastroenterology Progress Note ---
Date of Service August 09, 2024 Assessment & Plan (1) Gastritis: Plan: She is doing well. Okay with me to restart Allen--I can never say it is safe, there is always a risk of bleeding but as long as she stays on PPI it is the best we can do. Admission and Anticipated Discharge Date Admission Date: August 07, 2024 Subjective Doing well. H/H stable. No more black stools. No stomach complaints. Physical Exam Physical Exam: She looks well Constitutional: WD/WN, vitals as above Results & Data Vital Signs (Past 12 Hours) Vital Signs Temp Pulse Resp BP Pulse Ox O2 Del Method O2 Flow Rate 08/09/24 08:00 Nasal Cannula 08/09/24 07:23 36.4 C L 82 18 138/77 97 Nasal Cannula 08/09/24 03:13 36.7 C 87 18 124/60 97 Nasal Cannula 2
--- NOTE | 2024-08-09 12:48 | Hospitalist Progress Note ---
Date of Service August 09, 2024 Assessment & Plan (1) Acute on chronic heart failure with preserved ejection fraction: (2) Syncope and collapse: Plan: Due to hypoglycemia (3) Acute blood loss anemia: (4) Multiple gastric erosions: (5) Gastritis: (6) UTI (urinary tract infection): (7) Hypoglycemia associated with diabetes: (8) Upper gastrointestinal bleed: (9) Atrial fibrillation: (10) Type 2 diabetes mellitus: (11) Non-traumatic rhabdomyolysis: Plan Patient still with significant edema requiring IV medications for diuresis Reviewed cardiology orders, Lasix 60 mg given we will continue IV diuresis Replace potassium Transition to oral Keflex to treat UTI Continue to hold anticoagulation, restart after 7 days Discontinue aspirin indefinitely per cardiology recommendations Glucoses reviewed, continue sliding scale insulin no further episodes of hypoglycemia Discontinue Locke Titrate off oxygen Encourage activity, physical and Occupational Therapy consultations Plan is for patient to return home with home health care and home therapies. Phone update to patient's daughter Cindy Silverio Admission and Anticipated Discharge Date Admission Date: August 07, 2024 Subjective Patient feeling a bit better, shortness of breath improved. Leg still edematous Physical Exam Physical Exam: Constitutional: Alert, nontoxic HEENT: Mucous membranes moist. Lungs: Clear to auscultation, decreased, no wheezes rales or rhonchi CV: S1-S2, regular Abdomen: Soft, nontender, nondistended Extremities: Hard edema up through thighs Neuro: No focal deficits Psych: Cooperative, normal mood Results & Data Results & Data Vital Signs (Past 12 Hours) Vital Signs Temp Pulse Resp BP Pulse Ox O2 Del Method O2 Flow Rate 08/09/24 11:44 36.5 C 89 18 119/81 93 Room Air 08/09/24 08:00 Nasal Cannula 08/09/24 07:23 36.4 C L 82 18 138/77 97 Nasal Cannula 08/09/24 03:13 36.7 C 87 18 124/60 97 Nasal Cannula 2 Diagnostic Findings Reviewed imaging, laboratory and diagnostic studies. Pertinent findings as below. Hemoglobin 8.6, overall stable Electrolytes reviewed Creatinine 1.12 Glucoses reviewed Urine culture and sensitivity reviewed Klebsiella pansensitive (9) Atrial fibrillation Atrial fibrillation type: unspecified Qualified Code(s): I48.91 - Unspecified atrial fibrillation
[2024-08-09] MEDS: POTASSIUM CHLORIDE CRTAB 20 MEQ TABCR PO STA (14:26)
[2024-08-09] MEDS: cephALEXin 500 MG CAP PO SCH (14:26)
[2024-08-09] MEDS: INFLUENZA VACC TS2024-25(65y+)/PF (IIV3) 0.5mL Syr IM ONE (16:59)
[2024-08-09] MEDS: FUROSEMIDE 40 MG/4 ML VIAL IV ONE (16:59)
[2024-08-10 06:31] LABS: Hematocrit (blood only) 28.3 % (37.0-47.0); Hemoglobin 8.9 g/dl (12.0-16.0)
[2024-08-10 06:49] LABS: BUN Creatinine Ratio 37.5 (10-20); Calcium 8.5 mg/dl (8.6-10.3); Creatinine Clr Calc Pharmacy 49.1 ml/min; Potassium 3.8 mmol/L (3.5-5.1)
[2024-08-10] MEDS: lisinopril 5 MG TAB PO SCH (08:48)
[2024-08-10] MEDS: POTASSIUM CHLORIDE CRTAB 20 MEQ TABCR PO STA (09:40)
[2024-08-10] MEDS: FUROSEMIDE 40 MG/4 ML VIAL IV SCH (09:40)
--- NOTE | 2024-08-10 10:23 | Cardiology Progress Note ---
Date of Service August 10, 2024 Assessment & Plan (1) CHF (congestive heart failure): (2) Syncope and collapse: Plan Admission with syncope secondary to hypoglycemia. Acute decompensated diastolic congestive heart failure, HFpEF, anasarca Prior to arrival diuretic was HCTZ 12.5 mg/day To receive 60 mg IV furosemide BID today as ordered by Hospitalist. Low dose spironolactone added on 08/09 Supplement potassium orally Continue low dose LELO inhibition. ? Future use of SGLT2 inhibitor Atrial fibrillation. Echo at [facility] in May with severely dilated left atrium, moderately dilated via TTE here. Recommend rate control strategy. Rates acceptably controlled on telemetry, expected improvement post diuresis Metoprolol succinate dosing increased by Hospitalist to 125 mg/day [id number] Score 7 points. Resume Eliquis anticoagulation when determined to be safe from a GI standpoint. Dyslipidemia. Mild rhabdomyolysis noted on admission post fall. Recommend switching to atorvastatin 40 mg/day If unable to resume Eliquis will at least need something for DVT prophylaxis. Admission and Anticipated Discharge Date Admission Date: August 07, 2024 Supervising Physician Co-Signing Physician Notes Patient was seen and personally examined. Full assessment and plan as per advanced provider. Care and management discussed in detail and personally endorsed Slowly improving but manifesting good diuresis with increased diuretic dosing and renal tolerance Atrial fibrillation rates atrial fibrillation rates improving agree with current dose of metoprolol succinate I spent a total of 20 minutes on the date of service in preparation, delivery, and documentation of the care provided to this patient, excluding any time spent in the performance of separately billed services. Subjective Patient seen and examined. Chart, medications, telemetry reviewed Feeling a little better than still with considerable volume overload. No chest pain. No palpitations. I/O's: -1,947 mL's, -994 mL's, -4175 mL's -> -7,121 mL's overall Weight reportedly down 7 Kg's overall. Telemetry: Atrial fibrillation with heart rates predominantly in the 90's. Review of Systems Review of Systems: Complete Review of Systems is as stated above, negative, or noncontributory Physical Exam Physical Exam: General: A&Ox3. NAD. HENT: Normocephalic. Atraumatic. Eyes: PER. Conjunctiva pink, sclera clear. Neck: Unable to visualize neck veins. Heart: Irregularly irregular at 90 bpm. No murmur. Lungs: Absent breath sounds at the right base. Diminished a the left base. No wheeze. Abdomen: +BS. Soft. Nontender. No masses or organomegaly. Extremities: 1-2+ diffuse edema. Limited neurological examination is without focal deficits. Pulses: radial=1/4, posterior tibial=0/4. Results & Data Vital Signs (Past 12 Hours) Vital Signs Temp Pulse Resp BP Pulse Ox O2 Del Method O2 Flow Rate 08/10/24 07:23 37.1 C 95 H 19 138/78 97 Nasal Cannula 1.5 08/10/24 03:13 37.2 C 102 H 20 145/81 H 91 Room Air 08/09/24 23:03 37.1 C 88 20 155/84 H 97 Nasal Cannula 2 08/09/24 22:55 Room Air Laboratory Results CBC 08/10/24 Range/Units 05:31 Hgb 8.9 L (12.0-16.0) g/dl Hct 28.3 L (37.0-47.0) % Comprehensive Metabolic Panel 08/10/24 Range/Units 05:31 Sodium 136 (136-145) mmol/L Potassium 3.8 (3.5-5.1) mmol/L Chloride 97 L (98-107) mmol/L Carbon Dioxide 31 (21-32) mmol/L BUN 39 H (6-23) mg/dl Creatinine 1.04 (0.6-1.2) mg/dl Glucose 170 H (70-99(Fasting)) mg/dl Calcium 8.5 L (8.6-10.3) mg/dl Intake and Output 08/09/24 08/10/24 08/10/24 22:59 06:59 14:59 Intake Total 100 / 450 Output Total 1650 / 4625 1150 / 4625 Balance -1650 / -4175 -105 / -4175 Intake: Oral 100 / 450 Output: Urine 1150 / 115 Urine Amount (Catheter) 1649 Locke/Indwelling 1649 Other: Weight 102.1 kg Weight Measurement Method Built in [facility]
[2024-08-10] MEDS: METOPROLOL SUCC 25MG EXT REL TAB PO STA (10:30)
--- NOTE | 2024-08-10 12:30 | Hospitalist Progress Note ---
Date of Service August 10, 2024 Assessment & Plan (1) Acute on chronic heart failure with preserved ejection fraction: (2) Syncope and collapse: Plan: Due to hypoglycemia (3) Acute blood loss anemia: (4) Multiple gastric erosions: (5) Gastritis: (6) UTI (urinary tract infection): (7) Hypoglycemia associated with diabetes: (8) Upper gastrointestinal bleed: (9) Type 2 diabetes mellitus: (10) Non-traumatic rhabdomyolysis: (11) Atrial fibrillation: Plan Patient has responded well to diuresis but still significant edema in the lower extremities. Continue IV diuresis another 24 hours Monitor electrolytes Increase Toprol for better rate control and blood pressure control Hemoglobin stable, monitor as needed Glucoses now have been running of consistently in the high 100s low 200s. Will start a much lower dose of NPH insulin while here in the hospital to evaluate how she responds. She was on a fairly high dose of insulin 70/30 at home suspect she will need a much lower dose at the time of discharge. Keflex for UTI Admission and Anticipated Discharge Date Admission Date: August 07, 2024 Subjective Patient reporting feeling a little bit better. Using oxygen at night because it makes her feel better but not hypoxic. Feels as though her edema is a little bit better Physical Exam Physical Exam: Constitutional: Alert, nontoxic, no acute distress HEENT: Mucous membranes moist. Lungs: Decreased breath sounds, few crackles at bases CV: S1-S2, irregular Abdomen: Soft, nontender, nondistended Extremities: Lower extremity still with significant edema, however improved. skin a little bit looser on her lower legs. Still hard edema in lateral thighs Neuro: No focal deficits Psych: Cooperative, normal mood Results & Data Results & Data Vital Signs (Past 12 Hours) Vital Signs Temp Pulse Resp BP Pulse Ox O2 Del Method O2 Flow Rate 08/10/24 11:32 36.4 C L 90 19 135/68 95 Room Air 08/10/24 10:00 Nasal Cannula 08/10/24 07:23 37.1 C 95 H 19 138/78 97 Nasal Cannula 1.5 08/10/24 03:13 37.2 C 102 H 20 145/81 H 91 Room Air Diagnostic Findings Reviewed imaging, laboratory and diagnostic studies. Pertinent findings as below. (11) Atrial fibrillation Atrial fibrillation type: unspecified Qualified Code(s): I48.91 - Unspecified atrial fibrillation
[2024-08-10] MEDS: POTASSIUM CHLORIDE CRTAB 20 MEQ TABCR PO ONE (13:21)
[2024-08-10] MEDS: INSULIN HUMAN NPH SC SCH (17:25)
--- NOTE | 2024-08-11 05:57 | Electrocardiogram Report ---
Test Reason : Blood Pressure : */* mmHG Vent. Rate : 84 BPM Atrial Rate : * BPM P-R Int : * ms QRS Dur : 66 ms QT Int : 372 ms P-R-T Axes : * 30 56 degrees QTcB Int : 439 ms Atrial fibrillation Low voltage QRS Septal infarct , age undetermined Abnormal ECG When compared with ECG of 23-Jul-2001 07:02, Atrial fibrillation has replaced Sinus rhythm Confirmed by Mega Muhammad ([id number]) on 08/11/2024 5:57:32 AM Referred By: REFERRED SELF Confirmed By: Mega Muhammad
[2024-08-11] MEDS ORDERED: INSULIN HUMAN NPH SC SCH (06:30)
[2024-08-11 06:57] LABS: BUN Creatinine Ratio 39.8 (10-20); Calcium 8.6 mg/dl (8.6-10.3); Creatinine Clr Calc Pharmacy 53.7 ml/min
[2024-08-11] MEDS: METOPROLOL SUCC 25MG EXT REL TAB PO SCH (08:21)
--- NOTE | 2024-08-11 10:55 | Cardiology Progress Note ---
Date of Service August 11, 2024 Assessment & Plan (1) CHF (congestive heart failure): (2) Syncope and collapse: Plan Admission with syncope secondary to hypoglycemia. Acute decompensated diastolic congestive heart failure, HFpEF, anasarca Prior to arrival diuretic was HCTZ 12.5 mg/day Increase IV furosemide dosing to 80 BID Supplement potassium orally Continue low dose spironolactone which was added on 08/09 Continue low dose LELO inhibition. ? Future use of SGLT2 inhibitor Atrial fibrillation. Recommend rate control strategy. Prior to arrival dosing of metoprolol succinate was 100 mg/day Rates acceptably controlled on telemetry Metoprolol succinate dosing increased to 125 mg/day starting 08/10/2024. [id number] Score 7 points. Recommend resumption of Eliquis anticoagulation when able. Dyslipidemia. Mild rhabdomyolysis noted on admission post fall. Recommend switching to atorvastatin 40 mg/day Admission and Anticipated Discharge Date Admission Date: August 07, 2024 Supervising Physician Co-Signing Physician Notes Patient was seen and personally examined. Full assessment and plan as per advanced provider. Care and management discussed in detail and personally endorsed Still with persistent thigh and presacral edema. Heart rate better controlled diuretic dosing was increased as above. Subjective Patient seen and examined while in bedside chair. Chart, medications, telemetry reviewed. Improving volume overload reported. No chest pain. No palpitations. I/O's: - 6.7 L overall. Weight reportedly -11.5 kg (109.8 kg -> 98.3 kg) Telemetry: Atrial fibrillation with heart rates in the 70 and 80's. Review of Systems Review of Systems: Complete Review of Systems is as stated above, negative, or noncontributory Physical Exam Physical Exam: General: A&Ox3. NAD. HENT: Normocephalic. Atraumatic. Eyes: PER. Conjunctiva pink, sclera clear. Neck: Unable to visualize neck veins. Heart: Irregularly irregular at 80 bpm. No murmur. Lungs: Absent breath sounds at the right base. Diminished a the left base. No wheeze. Abdomen: +BS. Soft. Nontender. No masses or organomegaly. Extremities: 1-2+ diffuse edema. Limited neurological examination is without focal deficits. Pulses: radial=1/4, posterior tibial=0/4. Results & Data Vital Signs (Past 12 Hours) Vital Signs Temp Pulse Resp BP Pulse Ox O2 Del Method O2 Flow Rate 08/11/24 07:17 36.9 C 86 18 136/83 95 Room Air 08/11/24 06:47 36.7 C 90 18 121/66 95 Room Air 08/11/24 06:32 36.8 C 110 H 18 101/76 97 Nasal Cannula 2 08/11/24 03:13 36.4 C L 75 18 101/60 93 Room Air 08/10/24 23:26 36.6 C 64 18 123/69 96 Room Air Laboratory Results Comprehensive Metabolic Panel 08/11/24 Range/Units 05:28 Sodium 137 (136-145) mmol/L Potassium 4.0 (3.5-5.1) mmol/L Chloride 97 L (98-107) mmol/L Carbon Dioxide 33 H (21-32) mmol/L BUN 37 H (6-23) mg/dl Creatinine 0.93 (0.6-1.2) mg/dl Glucose 142 H (70-99(Fasting)) mg/dl Calcium 8.6 (8.6-10.3) mg/dl Intake and Output 08/10/24 08/11/24 08/11/24 22:59 06:59 14:59 Intake Total 240 / 1260 Output Total 300 / 850 100 / 850 Balance -60 / 410 -100 / 410 Intake: Oral 240 / 1260 Output: Urine Amount (Catheter) 300 / 850 100 / 850 External 300 / 400 100 / 400 Other: # Unmeasured Voids 1 Weight 98.3 kg Weight Measurement Method Built in [facility]
--- NOTE | 2024-08-11 11:06 | Hospitalist Progress Note ---
Date of Service August 11, 2024 Assessment & Plan (1) Acute on chronic heart failure with preserved ejection fraction: (2) Syncope and collapse: Plan: Due to hypoglycemia (3) Acute blood loss anemia: (4) Multiple gastric erosions: (5) Gastritis: (6) UTI (urinary tract infection): (7) Hypoglycemia associated with diabetes: (8) Upper gastrointestinal bleed: (9) Type 2 diabetes mellitus: (10) Non-traumatic rhabdomyolysis: (11) Atrial fibrillation: Plan Patient continues to improve and respond to diuresis, however still significantly volume overloaded Continue IV diuretics Continue to monitor electrolytes and renal function Monitor glucose with the introduction of NPH Completing course of antibiotics for UTI today Okay MedSurg Therapies Updated daughter via phone, anticipate Friday being earliest day of discharge plan to go home with home health care Admission and Anticipated Discharge Date Admission Date: August 07, 2024 Subjective Patient still quite fatigued with any type of movement. Legs still very swollen. But she reports definitely feels improved and less heavy. Physical Exam Physical Exam: Constitutional: Alert, sitting on edge of the bed, obese HEENT: Mucous membranes moist. Lungs: Decreased breath sounds CV: S1-S2, irregular Abdomen: Soft, nontender, nondistended Extremities: Decreased edema in lower legs, however, still thick hard edema in the lateral thighs and presacral Neuro: No focal deficits Psych: Cooperative, normal mood Results & Data Results & Data Vital Signs (Past 12 Hours) Vital Signs Temp Pulse Resp BP Pulse Ox O2 Del Method O2 Flow Rate 08/11/24 07:17 36.9 C 86 18 136/83 95 Room Air 08/11/24 06:47 36.7 C 90 18 121/66 95 Room Air 08/11/24 06:32 36.8 C 110 H 18 101/76 97 Nasal Cannula 2 08/11/24 03:13 36.4 C L 75 18 101/60 93 Room Air 08/10/24 23:26 36.6 C 64 18 123/69 96 Room Air Diagnostic Findings Basic metabolic profile reviewed, electrolytes and renal function stable Glucose 145 this morning, improved with starting NPH Intake and output reviewed, diuresed greater than 10 kg (11) Atrial fibrillation Atrial fibrillation type: unspecified Qualified Code(s): I48.91 - Unspecified atrial fibrillation
[2024-08-11] MEDS: FUROSEMIDE 40 MG/4 ML VIAL IV SCH (13:18)
[2024-08-12 07:09] VITALS: RESP 16
[2024-08-12 08:08] LABS: Basophils # (auto) 0.05 K/uL (0.00-0.20); Basophils % (auto) 0.6 %; Eosinophils # (auto) 0.11 K/uL (0.00-0.50); Eosinophils % (auto) 1.2 %; Hematocrit (blood only) 29.4 % (37.0-47.0); Hemoglobin 9.1 g/dl (12.0-16.0); Immature Granulocytes # (auto) 0.02 K/uL (0.01-0.20); Immature Granulocytes % (auto) 0.2 %; Lymphocytes # (auto) 1.18 K/uL (1.20-3.40); Lymphocytes % (auto) 13.3 %; Mean Corpuscular Hemoglobin 25.5 pg (25.0-34.0); Mean Corpuscular Volume 82.4 fL (80.0-100.0); Mean Platelet Volume 10.3 fL (9.4-12.4); Monocytes # (auto) 1.32 K/uL (0.11-0.59); Monocytes % (auto) 14.9 %; Neutrophils # (auto) 6.16 K/uL (1.40-6.50); Neutrophils % (auto) 69.8 %; Platelet Count 222 K/uL (130-400); RDW Standard Deviation 45.2 fL (36.4-46.3); Red Blood Count 3.57 M/uL (4.20-5.40); White Blood Count 8.84 K/ul (4.8-10.8)
[2024-08-12 08:27] LABS: BUN Creatinine Ratio 39.3 (10-20); Calcium 8.6 mg/dl (8.6-10.3); Creatinine Clr Calc Pharmacy 56.1 ml/min; Potassium 3.4 mmol/L (3.5-5.1)
--- NOTE | 2024-08-12 10:36 | Cardiology Progress Note ---
Date of Service August 12, 2024 Assessment & Plan (1) CHF (congestive heart failure): (2) Syncope and collapse: Plan Admission with syncope secondary to hypoglycemia. Acute decompensated diastolic congestive heart failure, HFpEF, anasarca Prior to arrival diuretic was HCTZ 12.5 mg/day Patient currently receiving IV furosemide at 80 BID and spironolactone 12.5 mg/day Renal function stable, mild hypokalemia observed Supplement potassium orally now Increase spironolactone to 25 mg/day Continue IV furosemide through today, possibly transitioning to oral torsemide at 80 mg/day in AM of 08/13 Continue spironolactone Continue low dose LELO inhibition. ? Future use of SGLT2 inhibitor Atrial fibrillation. [id number] Score 7 points. Continue rate control with metoprolol succinate Resume Eliquis anticoagulation when able. Admission and Anticipated Discharge Date Admission Date: August 07, 2024 Supervising Physician Co-Signing Physician Notes Patient was seen and personally examined. Full assessment and plan as per advanced provider. Care and management discussed in detail and personally endorsed Patient feels improved per her own description better mobility of legs and thighs. Continuing IV diuretics through today Spironolactone increased to 25 mg/day Subjective Patient seen and examined. Chart reviewed. Patient now in a non-telemetry monitored room Improving volume overload reported. No chest pain. No palpitations. Accuracy of I/O's in question over the last 2 days I/O's: - 7.5 L overall. Weight down -11.5 kg overall. Review of Systems Review of Systems: Complete Review of Systems is as stated above, negative, or noncontributory Physical Exam Physical Exam: General: A&Ox3. NAD. HENT: Normocephalic. Atraumatic. Eyes: PER. Conjunctiva pink, sclera clear. Neck: Unable to visualize neck veins. Heart: Irregularly irregular at 84 bpm. No murmur. Lungs: Absent breath sounds at the right base. Diminished a the left base. No wheeze. Abdomen: +BS. Soft. Nontender. No masses or organomegaly. Extremities: 1+ diffuse edema. Limited neurological examination is without focal deficits. Pulses: radial=1/4, posterior tibial=0/4. Results & Data Vital Signs (Past 12 Hours) Vital Signs Temp Pulse Resp BP Pulse Ox O2 Del Method 08/12/24 07:09 36.6 C 79 16 117/71 96 Room Air Laboratory Results CBC 08/12/24 Range/Units 07:12 WBC 8.84 (4.8-10.8) K/ul RBC 3.57 L (4.20-5.40) M/uL Hgb 9.1 L (12.0-16.0) g/dl Hct 29.4 L (37.0-47.0) % Plt Count 222 (130-400) K/uL Neut # (Auto) 6.16 (1.40-6.50) K/uL Lymph # (Auto) 1.18 L (1.20-3.40) K/uL Weld # (Auto) 1.32 H (0.11-0.59) K/uL Eos # (Auto) 0.11 (0.00-0.50) K/uL Baso # (Auto) 0.05 (0.00-0.20) K/uL Comprehensive Metabolic Panel 08/12/24 Range/Units 07:12 Sodium 137 (136-145) mmol/L Potassium 3.4 L (3.5-5.1) mmol/L Chloride 94 L (98-107) mmol/L Carbon Dioxide 34 H (21-32) mmol/L BUN 35 H (6-23) mg/dl Creatinine 0.89 (0.6-1.2) mg/dl Glucose 94 (70-99(Fasting)) mg/dl Calcium 8.6 (8.6-10.3) mg/dl Intake and Output 08/11/24 08/12/24 08/12/24 22:59 06:59 14:59 Output Total 350 / 1100 Balance -350 / -800 Output: Urine Amount (Catheter) 350 / 1100 External 350 / 1100 Other: # Unmeasured Voids 1
[2024-08-12] MEDS: POTASSIUM CHLORIDE CRTAB 20 MEQ TABCR PO STA (11:04)
--- NOTE | 2024-08-12 14:09 | Hospitalist Progress Note ---
Date of Service August 12, 2024 Assessment & Plan (1) Acute on chronic heart failure with preserved ejection fraction: (2) Syncope and collapse: Plan: Due to hypoglycemia (3) Acute blood loss anemia: (4) Multiple gastric erosions: (5) Gastritis: (6) UTI (urinary tract infection): (7) Hypoglycemia associated with diabetes: (8) Upper gastrointestinal bleed: (9) Type 2 diabetes mellitus: (10) Non-traumatic rhabdomyolysis: (11) Atrial fibrillation: Plan Patient with severe volume overload and anasarca, slowly diuresing Continue IV Lasix Continue to monitor daily weight and intake and output Replace potassiumGlucose has improved with the institution of the [facility]. Patient on a much lower dose than what she had been at home. Continue current insulin dosages and sliding scale. Hemoglobin stable, continue PPI, for gastric erosions Continue therapies Anticipate home with home health when patient is closer to dry weight. May need an additional 1-2 more days of IV diuresis Admission and Anticipated Discharge Date Admission Date: August 07, 2024 Subjective No acute issues overnight. No chest pain, no shortness of breath Physical Exam Physical Exam: Constitutional: Alert, nontoxic, obese HEENT: Mucous membranes moist. Lungs: decreased, no wheezes rales or rhonchi CV: S1-S2, regular Abdomen: Soft, nontender, nondistended Extremities: Edema/anasarca slowly improving. Hard edema in upper thighs have improved, a little bit looser skin Neuro: No focal deficits Psych: Cooperative, normal mood Results & Data Results & Data Vital Signs (Past 12 Hours) Vital Signs Temp Pulse Resp BP Pulse Ox O2 Del Method 08/12/24 07:09 36.6 C 79 16 117/71 96 Room Air Diagnostic Findings Reviewed imaging, laboratory and diagnostic studies. Pertinent findings as below. Potassium 3.4 Hemoglobin 9.1 Creatinine 0.89 (11) Atrial fibrillation Atrial fibrillation type: unspecified Qualified Code(s): I48.91 - Unspecified atrial fibrillation
[2024-08-12] MEDS: POTASSIUM CHLORIDE CRTAB 20 MEQ TABCR PO SCH (21:39)
[2024-08-13 07:28] VITALS: BP 143/79; PULSE 95; TEMP 98.1; O2SAT 96
[2024-08-13 07:46] LABS: BUN Creatinine Ratio 37.6 (10-20); Calcium 8.7 mg/dl (8.6-10.3); Creatinine Clr Calc Pharmacy 47.4 ml/min; Potassium 3.7 mmol/L (3.5-5.1)
[2024-08-13] MEDS: SPIRONOLACTONE 25 MG TAB PO SCH (08:18)
--- NOTE | 2024-08-13 12:48 | Cardiology Progress Note ---
Date of Service August 13, 2024 Assessment & Plan (1) CHF (congestive heart failure): (2) Syncope and collapse: Plan Admission with syncope secondary to hypoglycemia. Acute decompensated diastolic congestive heart failure, HFpEF, anasarca Prior to arrival diuretic was HCTZ 12.5 mg/day I's/O's not accurately recorded following removal of the Locke catheter; - 10.6 L on chart review Weight -18.8 kg this admission Volume status significant improved over the last few days. Stable renal function on AM labs Discontinue IV furosemide Start Torsemide 40 mg/day in AM of 08/14 Continue spironolactone 25 mg/day Supplement potassium today then reassess ongoing need. Continue low dose LELO inhibition. ? Future use of SGLT2 inhibitor Recommend close outpatient follow-up. Atrial fibrillation. HDD2TH7-ITSc Score 7 points. Continue rate control with metoprolol succinate. Recommend resumption of Eliquis anticoagulation Please contact with any questions or concerns. Admission and Anticipated Discharge Date Admission Date: August 07, 2024 Supervising Physician Co-Signing Physician Notes Patient was seen and personally examined. Full assessment and plan as per advanced provider. Care and management discussed in detail and personally endorsed Patient feels improved with diuresis, greater than 30 lb wieght reduction Plan as above Subjective Patient seen and examined. Chart, medications, telemetry reviewed. I's/O's not accurately recorded. Urinary incontinence observed well working with occupational therapy. Feeling better. Notes plans to return home today despite concerns. Fluid retention improved. Breathing improved. No chest pain. No palpitations. Telemetry: Nonmonitored bed. Review of Systems Review of Systems: Complete Review of Systems is as stated above, negative, or noncontributory Physical Exam Physical Exam: General: A&Ox3. NAD. HENT: Normocephalic. Atraumatic. Eyes: PER. Conjunctiva pink, sclera clear. Neck: Unable to visualize neck veins. Heart: Irregularly irregular at 84 bpm. No murmur. Lungs: Diminished however clear to auscultation. No wheeze. Abdomen: +BS. Soft. Nontender. No masses or organomegaly. Extremities: Mild edema. Limited neurological examination is without focal deficits. Pulses: radial=1/4, posterior tibial=0/4. Results & Data Vital Signs (Past 12 Hours) Vital Signs Temp Pulse Resp BP Pulse Ox O2 Del Method 08/13/24 08:42 Room Air 08/13/24 07:27 36.7 C 95 H 16 143/79 H 96 Room Air Laboratory Results Comprehensive Metabolic Panel 08/13/24 Range/Units 06:45 Sodium 139 (136-145) mmol/L Potassium 3.7 (3.5-5.1) mmol/L Chloride 97 L (98-107) mmol/L Carbon Dioxide 34 H (21-32) mmol/L BUN 38 H (6-23) mg/dl Creatinine 1.01 (0.6-1.2) mg/dl Glucose 89 (70-99(Fasting)) mg/dl Calcium 8.7 (8.6-10.3) mg/dl Intake and Output 08/12/24 08/13/24 08/13/24 22:59 06:59 14:59 Output Total 601 / 2601 450 / 2601 700 / 700 Balance -601 / -2401 -450 / -2401 -700 / -700 Output: Urine Amount (Catheter) 600 / 2600 450 / 2600 700 / 700 External 600 / 2600 450 / 2600 700 / 700 # Bowel Movements Other: # Unmeasured Voids 1 Weight 91 kg
[2024-08-13] MEDS: POTASSIUM CHLORIDE CRTAB 20 MEQ TABCR PO ONE (12:53)
--- NOTE | 2024-08-13 13:57 | Hospitalist Progress Note ---
Date of Service August 13, 2024 Assessment & Plan (1) Acute on chronic heart failure with preserved ejection fraction: (2) Syncope and collapse: Plan: Due to hypoglycemia (3) Acute blood loss anemia: (4) Multiple gastric erosions: (5) Gastritis: (6) UTI (urinary tract infection): (7) Hypoglycemia associated with diabetes: (8) Upper gastrointestinal bleed: (9) Type 2 diabetes mellitus: (10) Non-traumatic rhabdomyolysis: (11) Atrial fibrillation: Plan Acute decompensated diastolic congestive heart failure, HFpEF, anasarca --CT Chest:Bilateral pleural effusions with associated minimal atelectasis. --ECHO: EF 55 to 60%. Right ventricle is mildly dilated. Right ventricle systolic function is normal. Mild aortic regurgitation. Mild tricuspid regurgitation. Moderate pulmonary hypertension. Estimated pulmonary artery systolic pressure 51 mmHg --IV diuretics transition to torsemide 40 mg daily, spironolactone 25 mg daily Continue lisinopril 5 mg daily Appreciate cardiology input Monitor I's and O's, daily weight Volume status much improved Saturating well on room air Patient currently not interested in rehab facility Plan to be discharged home Needs follow-up with cardiology on discharge Urinary tract infection Urine culture grew Klebsiella Completed antibiotic course Rhabdomyolysis Elevated CK levels Gastritis S/P endoscopy showed normal esophagus, gastritis with erosions and erythema. Hold aspirin for now Resumed Eliquis, hemoglobin stable Continue Protonix Appreciate GI input Right lower lobe possible mass Abnormal CT chest 1.6 x 1.2 cm noncalcified suspected mass in the right lower lobe. Nonspecific mediastinal lymph nodes. Senescent changes. --Past tobacco use -- Will recommend to follow-up as outpatient Atrial fibrillation Continue metoprolol, Eliquis Metoprolol increased to metoprolol succinate 0.25 mg daily Dyslipidemia Resume statin as able Recent right shoulder fracture Nonoperative management Follows with [place] orthopedic surgeon DM II Recurrent hypoglycemia per record HbA1c 5.0 Needs adjustment of insulin on discharge DVT Px: Eliquis CODE STATUS Full code Admission and Anticipated Discharge Date Admission Date: August 07, 2024 Subjective Patient is seen and examined at bedside Dyspnea much improved Leg edema improved as well Denies any chest pain, nausea, vomiting, abdominal pain Updated patient's family over the phone Review of Systems Review of Systems: All systems reviewed & are unremarkable except as noted in Subjective Physical Exam Physical Exam: Physical Exam: Vitals signs as noted above General Appearance:Obese, no apparent distress Head: normocephalic, Atraumatic Eyes: normal inspection, EOMI Neck: supple, Trachea midline Respiratory/Chest: Normal breath sounds, mild basal crackles, No accessory muscle use Cardiovascular: S1, S2, No murmur Abdomen/GI:Soft, Non tender, Bowel sounds present Extremities/Musculoskeletal:normal inspection, 1+ no edema Neurologic/Psych:AAOX3, grossly no focal neurological deficits Skin: normal color, warm Results & Data Results & Data Vital Signs (Past 12 Hours) Vital Signs Temp Pulse Resp BP Pulse Ox O2 Del Method 08/13/24 08:42 Room Air 08/13/24 07:27 36.7 C 95 H 16 143/79 H 96 Room Air Laboratory Results [facility] 08/13/24 06:45 Sodium 139 Potassium 3.7 Chloride 97 L Carbon Dioxide 34 H BUN 38 H Creatinine 1.01 Glucose 89 Calcium 8.7 (11) Atrial fibrillation Atrial fibrillation type: unspecified Qualified Code(s): I48.91 - Unspecified atrial fibrillation
--- NOTE | 2024-08-13 14:52 | Discharge Summary ---
Date of Service August 13, 2024 Admission HPI Per Admitting Provider History obtained from patient, family, and records. Medical history significant for A-fib on Eliquis, mild MR, hypertension, hyperlipidemia, GERD, DM2 insulin requiring, migraine, stress incontinence as per records, neuropathy, past tobacco abuse. Recent confinement [facility] June 15 to 2023 for traumatic right humeral fracture and left fractured thumb secondary to fall. No operative intervention for fractures. Patient also found to have A-fib on the monitor on morning of admission as per documentation. TTE showed mild MR, EF of 55 to 60%. Patient discharged on Eliquis. Patient with intermittent hypoglycemic episodes about twice a week following discharge from hospital. Blood sugar 40s No change from usual regimen or food consumption. Patient discharged home after evaluation at [facility] ER. Some subsequent episodes of hypoglycemia associated with syncope. No witnessed seizures as per family. 2 weeks ago, patient noted shortness of breath somewhat worse on exertion. No unusual cough symptoms. No improvement with home inhaler. Denies chest pain. Increasing bilateral leg swelling which may have started following discharge from the hospital 2 months ago. Shoulder fracture pain controlled at home. Patient denies OTC NSAID intake. Patient waiting to hear from family doctor. Patient found unconscious on the floor at home. EMS called to patient's home. Blood sugar noted to be 40s. Patient woke up in the ambulance. Denies headache, chest pain, abdominal pain. Not aware of black or bloody stools or hematuria. Just remembers feeling weak. IV Lasix administered at the ER. Admission Exam Per Admitting Provider GENERAL: Slightly uncomfortable, morbidly obese, no respiratory distress SKIN: Pallor, warm HEENT: Pale palpebral conjunctivae, no ptosis, dry buccal mucosa NECK : Supple, short neck, no tenderness CHEST : Decreased breath sounds,, bibasilar rales, no tenderness HEART : Irregular, no obvious murmurs ABDOMEN: Some distention, nontender RECTAL : Intact sphincter, melanotic stool (FOBT positive) EXTREMITIES : Bilateral LE swelling without tenderness, right shoulder tenderness, no other conspicuous deformities noted NEUROLOGIC : Coherent, no facial asymmetry, no other gross focality Principal Diagnosis Acute decompensated diastolic congestive heart failure, HFpEF, anasarca Urinary tract infection Rhabdomyolysis Gastritis Right lower lobe possible mass DM II Discharge Data Allergies Allergy/AdvReac Type Severity Reaction Status Date / Time amoxicillin Allergy Mild RASH,ITCHIN Verified 08/07/24 01:22 G adhesive tape Allergy Unknown rash with Verified 08/07/24 01:35 bandaids & all tape except Paper Consultations 08/07/24 00:33 ED Decision to Admit Stat 08/07/24 02:52 Consult Cardiology Routine Consult Gastroenterology Routine Procedures Performed Laboratory Results WBC 8.84 K/ul (4.8-10.8) 08/12/24 07:12 RBC 3.57 M/uL (4.20-5.40) L 08/12/24 07:12 Hgb 9.1 g/dl (12.0-16.0) L 08/12/24 07:12 Hct 29.4 % (37.0-47.0) L 08/12/24 07:12 MCV 82.4 fL (80.0-100.0) 08/12/24 07:12 MCH 25.5 pg (25.0-34.0) 08/12/24 07:12 MCHC 31.0 g/dL (32.0-36.0) L 08/12/24 07:12 RDW Std Deviation 45.2 fL (36.4-46.3) 08/12/24 07:12 RDW Coeff of Alvaro 15.0 % (11.5-14.5) H 08/12/24 07:12 Plt Count 222 K/uL (130-400) 08/12/24 07:12 MPV 10.3 fL (9.4-12.4) 08/12/24 07:12 Immature Gran % (Auto) 0.2 % 08/12/24 07:12 Neut % (Auto) 69.8 % 08/12/24 07:12 Lymph % (Auto) 13.3 % 08/12/24 07:12 Ripley % (Auto) 14.9 % 08/12/24 07:12 Eos % (Auto) 1.2 % 08/12/24 07:12 Baso % (Auto) 0.6 % 08/12/24 07:12 Reticulocyte % (Auto) 2.63 % (0.50-2.00) H 08/07/24 02:31 Neut # (Auto) 6.16 K/uL (1.40-6.50) 08/12/24 07:12 Lymph # (Auto) 1.18 K/uL (1.20-3.40) L 08/12/24 07:12 Ripley # (Auto) 1.32 K/uL (0.11-0.59) H 08/12/24 07:12 Eos # (Auto) 0.11 K/uL (0.00-0.50) 08/12/24 07:12 Baso # (Auto) 0.05 K/uL (0.00-0.20) 08/12/24 07:12 Reticulocyte # 0.090 10^6/uL (0.020-0.100) 08/07/24 02:31 Immature Gran # (Auto) 0.02 K/uL (0.01-0.20) 08/12/24 07:12 PT 16.9 Seconds (9.0-12.0) H 08/06/24 23:03 INR 1.6 (0.9-1.1) H 08/06/24 23:03 Sodium 139 mmol/L (136-145) 08/13/24 06:45 Potassium 3.7 mmol/L (3.5-5.1) 08/13/24 06:45 Chloride 97 mmol/L (98-107) L 08/13/24 06:45 Carbon Dioxide 34 mmol/L (21-32) H 08/13/24 06:45 Anion Gap 8 (3-11) 08/13/24 06:45 BUN 38 mg/dl (6-23) H 08/13/24 06:45 Creatinine 1.01 mg/dl (0.6-1.2) 08/13/24 06:45 Est Cr Clr Drug Dosing 47.4 ml/min 08/13/24 06:45 eGFR 56.63 08/13/24 06:45 BUN/Creatinine Ratio 37.6 (10-20) H 08/13/24 06:45 Glucose 89 mg/dl (70-99(Fasting)) 08/13/24 06:45 POC Glucose 163 mg/dl (70-99) H 08/13/24 11:33 Estimat Average Glucose 97 mg/dl 08/07/24 02:31 Hemoglobin A1c 5.0 % (4.5-5.6) 08/07/24 02:31 Calcium 8.7 mg/dl (8.6-10.3) 08/13/24 06:45 Phosphorus 4.8 mg/dl (2.5-4.9) 08/08/24 06:06 Magnesium 1.8 mg/dl (1.7-2.4) 08/08/24 06:06 Iron 17 mcg/dl (35-150) L 08/07/24 02:31 Transferrin 291 mg/dl (200-360) 08/07/24 02:31 Ferritin 23.7 ng/ml (8-388) 08/07/24 02:31 Total Bilirubin 0.5 mg/dl (0.2-1.0) 08/06/24 20:46 AST 45 U/L (13-39) H 08/06/24 20:46 ALT 24 U/L (7-52) 08/06/24 20:46 Alkaline Phosphatase 151 U/L (34-104) H 08/06/24 20:46 Total Creatine Kinase 1196 U/L (26-192) H 08/07/24 07:54 Troponin I High Sens 12.8 pg/ml (0-14) 08/06/24 20:46 B-Natriuretic Peptide 251 pg/ml (0-100) H 08/06/24 20:46 Total Protein 6.3 gm/dl (6.0-8.3) 08/06/24 20:46 Albumin 3.5 gm/dl (3.4-5.0) 08/06/24 20:46 Globulin 2.8 gm/dl (2.5-4.0) 08/06/24 20:46 Albumin/Globulin Ratio 1.3 (0.9-2) 08/06/24 20:46 Vitamin B12 810 pg/ml (180-914) 08/07/24 02:31 Folate 17.27 ng/ml (>5.38) 08/07/24 02:31 Procalcitonin 0.06 ng/ml (0-0.5) 08/06/24 20:46 TSH 4.617 uIu/ml (0.300-4.500) H 08/06/24 20:46 Free T4 1.21 ng/dl (0.61-1.60) 08/06/24 20:46 Urine Color Yellow 08/07/24 00:05 Urine Appearance Clear (Clear) 08/07/24 00:05 Urine pH 5.0 (4.5-7.5) 08/07/24 00:05 Ur Specific Kersey 1.038 (1.000-1.030) H 08/07/24 00:05 Urine Protein Trace (Negative) H 08/07/24 00:05 Urine Glucose (UA) Negative (Negative) 08/07/24 00:05 Urine Ketones Trace (Negative) H 08/07/24 00:05 Urine Blood Negative (Negative) 08/07/24 00:05 Urine Nitrite Positive (Negative) A 08/07/24 00:05 Urine Bilirubin Negative (Negative) 08/07/24 00:05 Urine Urobilinogen Negative (Negative) 08/07/24 00:05 Ur Leukocyte Esterase Trace (Negative) H 08/07/24 00:05 Urine WBC (Auto) 0-5 /hpf (0-5) 08/07/24 00:05 Urine RBC (Auto) 0-2 /hpf (0-2) 08/07/24 00:05 U Hyaline Cast (Auto) 0-2 /lpf (0-2) 08/07/24 00:05 U Epithel Cells (Auto) 0-2 /hpf (0-2) 08/07/24 00:05 Urine Bacteria (Auto) 3+ (None Seen) H 08/07/24 00:05 Blood Type A Positive 08/07/24 02:31 Antibody Screen NEGATIVE 08/07/24 02:31 Impressions Chest X-Ray 08/06/24 20:54 XR chest 1V portable CLINICAL HISTORY: fall TECHNIQUE: Single frontal radiograph of the chest was obtained. Comparison: Comparison is made to CT chest 08/06/2024 FINDINGS: No lines and tubes are seen. Cardiomegaly is noted. There is prominence and cephalization of the vasculature with Hong B lines seen. Likely a small bilateral pleural effusions. IMPRESSION: 1. Cardiomegaly and moderate pulmonary edema. 2. Small bilateral pleural effusions. ACT 112: Negative or not required by law. Electronically signed by: Frank Bacon M.D. 08/07/2024 7:46 AM Abdomen/Pelvis CT 08/06/24 22:02 Exam(s): CT ABDOMEN + PELVIS With Contrast IV Amt: 93 ml EXAM: CT Abdomen and Pelvis With Intravenous Contrast CLINICAL HISTORY: Reason for exam: trauma, syncope, pain, fall. TECHNIQUE: Axial computed tomography images of the abdomen and pelvis with intravenous contrast. CTDI is 36.18 mGy and DLP is 3210.82 mGy-cm. Automated exposure control was utilized for the study. A dose lowering technique was utilized adhering to the principles of ALARA. CONTRAST: Patient received 93 ml of IV contrast COMPARISON: No relevant prior studies available. FINDINGS: Lung bases: Unremarkable. No mass. No consolidation. Pleural space: Moderate RIGHT and small LEFT pleural effusions. ABDOMEN: Liver: Unremarkable. No mass. Gallbladder and bile ducts: Unremarkable. No calcified stones. No ductal dilation. Pancreas: Unremarkable. No mass. No ductal dilation. Spleen: Unremarkable. No splenomegaly. Adrenals: Unremarkable. No mass. Kidneys and ureters: Unremarkable. No solid mass. No hydronephrosis. Stomach and bowel: Diverticulosis, without acute diverticulitis. No small bowel obstruction. No free intraperitoneal air. PELVIS: Appendix: No findings to suggest acute appendicitis. Bladder: Unremarkable. No mass. Reproductive: Hysterectomy. ABDOMEN and PELVIS: Intraperitoneal space: Unremarkable. No free air. No significant fluid collection. Bones/joints: Degenerative changes of the spine. No acute fracture. No dislocation. Soft tissues: Anasarca. Vasculature: Atherosclerotic changes of the aorta. No abdominal aortic aneurysm. Lymph nodes: Unremarkable. No enlarged lymph nodes. IMPRESSION: 1. Moderate RIGHT and small LEFT pleural effusions. 2. Hysterectomy. 3. Diverticulosis, without acute diverticulitis. No small bowel obstruction. No free intraperitoneal air. Electronically signed by: Oracio Kent MD 08/06/24 23:[address] 08/06/24 22:02 Exam(s): CT C SPINE EXAM: CT Cervical Spine Without Intravenous Contrast CLINICAL HISTORY: Reason for exam: trauma, syncope, pain, fall. TECHNIQUE: Axial computed tomography images of the cervical spine without intravenous contrast. CTDI is 36.18 mGy and DLP is 3210.82 mGy-cm. Automated exposure control was utilized for the study. A dose lowering technique was utilized adhering to the principles of ALARA. COMPARISON: No relevant prior studies available. FINDINGS: The vertebral body heights are maintained. The craniocervical junction is intact. The atlanto-dens interval is maintained. The dens is intact. There is no spondylolisthesis. Multilevel cervical spondylosis and degenerative disc disease. Straightening of the cervical lordosis. Small RIGHT pleural effusion. IMPRESSION: No acute fracture or subluxation of the cervical spine. Electronically signed by: Oracio Kent MD 08/06/24 23:[address] 08/06/24 22:02 Exam(s): CT CHEST With Contrast IV Amt: 93 ml EXAM: CT Chest With Intravenous Contrast CLINICAL HISTORY: trauma, syncope, pain, fall. TECHNIQUE: Axial computed tomography images of the chest with intravenous contrast. CTDI is 36.18 mGy and DLP is 3210.82 mGy-cm. Automated exposure control was utilized for the study. A dose lowering technique was utilized adhering to the principles of ALARA. CONTRAST: Patient received 93 ml of IV contrast COMPARISON: No relevant prior studies available. FINDINGS: Lungs: Mild bilateral dependent and compressive atelectasis. 1.6 x 1.2 cm noncalcified suspected mass in the right lower lobe. Pleural space: Right greater than left pleural effusions. No pneumothorax. Heart: No cardiomegaly. Trace pericardial effusion. Coronary artery calcifications. Bones/joints: Periosteal reaction and deformity of the partially visualized humeral head and scapula suggesting that subacute partially healed fracture. No acute fracture. Degenerative changes of the thoracic spine. 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 Soft tissues: Diffuse subcutaneous infiltration. Small hiatal hernia. Vasculature: Unremarkable. No thoracic aortic aneurysm. Lymph nodes: Scattered mediastinal lymph nodes, largest near the P1 and a 1.1 x 2 cm. IMPRESSION: No acute fracture. Periosteal reaction and deformity of the partially visualized humeral head and scapula suggesting that subacute partially healed fracture. Bilateral pleural effusions with associated minimal atelectasis. 1.6 x 1.2 cm noncalcified suspected mass in the right lower lobe. Nonspecific mediastinal lymph nodes. Senescent changes. Electronically signed by: Connor Ro M.D. 08/07/24 00:[address] 08/06/24 22:02 Exam(s): CT HEAD Without Contrast EXAM: CT Head Without Intravenous Contrast CLINICAL HISTORY: Reason for exam: trauma, syncope, pain, fall. TECHNIQUE: Axial computed tomography images of the head/brain without intravenous contrast. CTDI is 36.18 mGy and DLP is 3210.82 mGy-cm. Automated exposure control was utilized for the study. A dose lowering technique was utilized adhering to the principles of ALARA. COMPARISON: No relevant prior studies available. FINDINGS: No acute intracranial hemorrhage. No midline shift or mass effect. The territorial bustamante-white matter differentiation is maintained throughout. Age-related cerebral volume loss. Periventricular and subcortical white matter hypoattenuation, consistent with chronic microangiopathy. The visualized orbits appear grossly unremarkable. The calvarium is intact. The visualized paranasal sinuses and mastoid air cells are grossly clear. IMPRESSION: No acute intracranial hemorrhage, midline shift, or mass effect. Electronically signed by: Oracio Kent MD 08/06/24 23:42 PM Ordered Studies 08/06/24 22:02 CT abd pelvis IV con only Stat CT cervical spine wo con Stat CT chest diagnostic w con Stat CT head/brain wo con Stat Hospital Course (1) Acute on chronic heart failure with preserved ejection fraction: (2) Syncope and collapse: Due to hypoglycemia (3) Acute blood loss anemia: (4) Multiple gastric erosions: (5) Gastritis: (6) UTI (urinary tract infection): (7) Hypoglycemia associated with diabetes: (8) Upper gastrointestinal bleed: (9) Type 2 diabetes mellitus: (10) Non-traumatic rhabdomyolysis: (11) Atrial fibrillation: Plan Acute decompensated diastolic congestive heart failure, HFpEF, anasarca --CT Chest:Bilateral pleural effusions with associated minimal atelectasis. --ECHO: EF 55 to 60%. Right ventricle is mildly dilated. Right ventricle systolic function is normal. Mild aortic regurgitation. Mild tricuspid regurgitation. Moderate pulmonary hypertension. Estimated pulmonary artery systolic pressure 51 mmHg --IV diuretics transition to torsemide 40 mg daily, spironolactone 25 mg daily Continue lisinopril 5 mg daily Appreciate cardiology input Monitor I's and O's, daily weight Volume status much improved Saturating well on room air Patient currently not interested in rehab facility Plan to be discharged home Needs follow-up with cardiology on discharge Urinary tract infection Urine culture grew Klebsiella Completed antibiotic course Rhabdomyolysis Elevated CK levels Gastritis S/P endoscopy showed normal esophagus, gastritis with erosions and erythema. Hold aspirin for now Resumed Eliquis, hemoglobin stable Continue Protonix Appreciate GI input Right lower lobe possible mass Abnormal CT chest 1.6 x 1.2 cm noncalcified suspected mass in the right lower lobe. Nonspecific mediastinal lymph nodes. Senescent changes. --Past tobacco use -- Will recommend to follow-up as outpatient Atrial fibrillation Continue metoprolol, Eliquis Metoprolol increased to metoprolol succinate 0.25 mg daily Dyslipidemia Resume statin as able Recent right shoulder fracture Nonoperative management Follows with [place] orthopedic surgeon DM II Recurrent hypoglycemia per record HbA1c 5.0 Needs adjustment of insulin on discharge DVT Px: Eliquis CODE STATUS Full code Total Time Total Time Spent Total Time Spent (In Minutes): 48 minutes Discharge Plan Discharge Items Patient Disposition: Home - Home Health Services Reason For Visit: CHF Discharge Diagnosis: Acute decompensated diastolic congestive heart failure, HFpEF, anasarca Urinary tract infection Rhabdomyolysis Gastritis Right lower lobe possible mass DM II Activity: Per Instructions section Exercise/Sports: Gradually increase as tolerated Non-emergency contact: Primary Care Provider and Evaporator Helper Call non-emergency contact if: you have any medication questions, your symptoms worsen, your pain is concerning for you and you have a fever Follow-up/Referrals: Elvin Castillo [Physician Creative Producer] - (The Cardiology office will contact you for a follow up appointment.) Emy Hawk DO [Primary Care Provider] - (Date & Time 08/19/2024 12:20 PM Provider Aram Tejada MD Department Family Medicine [facility] ) Diet: Carb Consistent or DM2 and Heart Healthy Addtl Attending Provider Instructions: Follow-up with your primary care physician on 08/19/2024 12:20 PM Follow-up with your nuclear plant operator Elvin Castillo PA-C in 1 to 2 weeks as advised -- You are incidentally noted to have right lower lobe lung mass on CT. Discuss with your primary care physician for further management. Consider repeating CT scan in 4-6 weeks. --Monitor your blood glucose levels regularly as advised. Discuss with your physician for further adjustment of medications as needed. Seek immediate medical attention if your symptoms reoccur or worsen Please take all medications as instructed on discharge list below. Please call if you have any questions or problems. You can reach a [facility] hospitalist on duty at [facility] 24 hours a day by calling [phone] Medication changes: 1) your metoprolol succinate is increased to 125 mg daily 2) you are started on torsemide 40 mg daily 3) you are started on spironolactone 25 mg daily 4) hold taking aspirin for now until further recommendations from your primary care physician 5) your omeprazole is changed to pantoprazole 40 mg twice a day 6) your insulin 70/30 is decreased to 25 units with breakfast and 15 units with dinner Call your Primary Care doctor if any of the following symptoms or problems start or get worse: * Shortness of breath or difficulty breathing * Wake up at night short of breath * Chest pain * Cough * Swelling of your hands, feet, or legs * More fatigued or tired with your normal activity * Palpitations - sudden fast heart beats WEIGHT * Weigh yourself every morning after using the bathroom. * Use the same scale. * Wear the same amount of clothing. * Write your weight down on a chart. * Call your Primary Care doctor if you gain more than 2-3 pounds in 1-2 days. MEDICATIONS * Use this discharge instruction sheet for medication instructions. * Take your medications at the time your doctor ordered. * Do not skip a dose of your medicines. * If you miss a dose of medicine, take it as soon as possible, but DO NOT DOUBLE A DOSE. * Read your medicine information when you get home. * Know all of the side effects of your medicine. If in doubt, ask your pharmacist * Call your Primary Care doctor's office if you have any side effects. * Be sure all of your doctors know what medicine and herbs you take (including cold, flu, and herbal medicine). Take the following with you to your follow-up doctor appointments: * Weight Chart * Medication List * List of questions Do not drink excessive alcohol, beer or wine. Pending Studies at Discharge: No Stand-Alone Forms: My [facility], Smoking Cessation Medications and DC Order Prescriptions: New metoprolol succinate 25 mg Tablet Extended Release 24 Hr 25 mg PO QAM Qty: 30 1RF Rx Instructions: Take 125 mg metoprolol succinate daily spironolactone 25 mg Tablet 25 mg PO DAILY Qty: 30 1RF torsemide 40 mg tablet 40 mg PO QAM Qty: 30 1RF pantoprazole 40 mg Tablet,Delayed Release (Dr/Ec) 40 mg PO BID Qty: 60 2RF Continued latanoprost 0.005 % drops 1 drp ophthalmic (eye) HS (DME) blood-glucose meter [SkuRunuch Ultra2 Meter] Misc MISCELLANEOUS cyanocobalamin (vitamin B-12) 1,000 mcg tablet 1,000 mcg PO QAM albuterol sulfate 90 mcg/actuation HFA aerosol inhaler 2 puff INHALATION Q4H PRN (Reason: SOB) acetaminophen 500 mg Capsule 1,000 mg PO DAILY PRN (Reason: Pain) Eliquis 5 mg tablet 5 mg PO BID lovastatin 10 mg Tablet 10 mg PO PM Rx Instructions: PER GRANDDAUGHTER, PATIENT TAKES LOVASTATIN. UNABLE TO VERIFY STRENGTH ascorbic acid (vitamin C) [Vitamin C] 500 mg Tablet 500 mg PO DAILY cholecalciferol (vitamin D3) [Vitamin D3] 25 mcg (1,000 unit) Capsule 25 mcg PO DAILY mecobalamin (vitamin B12) [B12 Active] 1,000 mcg Tablet,Chewable 1,000 mcg PO DAILY lisinopril 5 mg PO DAILY Rx Instructions: PER GRANDDAUGHTER, PATIENTS TAKES THIS DAILY. UNABLE TO VERIFY STRENGTH Changed insulin asp prt-insulin aspart [Novolog Mix 70-30FlexPen U-100] 100 unit/mL (70-30) insulin pen See Rx Instructions .ROUTE .COMPLEX Qty: 0 0RF Rx Instructions: Take 25 UNITS BEFORE BREAKFAST AND 15 UNITS BEFORE SUPPER metoprolol succinate 100 mg tablet extended release 24 hr 100 mg PO UD Qty: 0 0RF Rx Instructions: Take 125 mg metoprolol succinate daily Held aspirin 81 mg Capsule 81 mg PO DAILY Hold Instructions: Hold until further recommendations from your primary care physician Discontinued omeprazole 20 mg capsule,delayed release(DR/EC) 20 mg PO QAM Discharge Orders: Discharge Order (Routine); Ordered 08/13/24 Ordered By: Cornelio Velásquez Admission Data Admit Date/Time: 08/07/24 01:36 Attending Provider: Cornelio Velásquez Admit Provider: Sergio Almonte Primary Care Provider: Emy Hawk Other Providers: Praveen Saenz [facility]; Sergio Almonte; Clementine Lo; Rui Peña; Adelfo Yen; Domenico Fitzgerald; Connor Butler; Elvin Castillo; Rosalba Dowling; Ally Joy; Davina Starks; Clementine Duarte; Edgar Madera; Tavon Ledbetter; Frances Turk; Jo Del Valle; Cheryl Choudhary; Augustina Doll; Víctor Cummins; Natalia Shukla; Violetta Dow; Amy Acuña; Robert Martínez; Carlene Cazares; Malathi Monk; Yris Garcia; Dian Ferrari; Loan Irby; Ed Redding; Conrado Agarwal; Yvon Mackey; Geetha Mills; Tangela Karimi S; Karolina Almendarez; Nancy Romero; America Oquendo; Delicia Winslow; Kailey Spence; Jim Villar; Clementine Mora; Sahil Murdock Jr; Nicolás Strickland.; Dre Antonio; Carlos Manuel Daniels; Leandro Verma; Jo Gibson; Oscar Mathews I; Julieth Caballero
[2024-08-14] MEDS ORDERED: TORSEMIDE 20 MG TAB PO SCH (09:00)
== END 2024-08-13 15:52 | disposition home health service (06) | DRG 291 ==
LOC: ED 20:35 → SUATTDRO 08-07 01:36 → 2E 08-07 01:36 → 3N 08-11 15:36